=== PATIENT | male | born 1940 | race Caucasian/White ===

== ENCOUNTER → 2020-07-02 09:47 | Outpatient (CLI) | payer MEDICARE, SELFPAY ==
[2020-07-02 11:20] LABS: COVID19 -Nasal RAPID Negative (Negative)
== END ==
PROVIDERS: PCP Internal Medicine; Visit Provider Nurse Practitioner
DX: Z11.59 Encounter for screening for other viral diseases (principal)
CPT/HCPCS: 87635

== ENCOUNTER 2020-07-05 07:15 | Day surgery (SDC) | payer MEDICARE, SELFPAY ==
[2020-07-05] MEDS: CATARACT EYE COMPOUND (10 DROPS/SYRINGE) 3 DROPS EYE-OP (07:40)
[2020-07-05] MEDS: PROPARACAINE 0.5% OPHTH SOL 2 DROPS EYE-OP (07:40)
[2020-07-05 07:42] VITALS: BP 129/74; PULSE 66; RESP 16; TEMP 36.2; O2SAT 99; BMI 23.8
--- NOTE | 2020-07-05 09:00 | PM.PREOP ---
Pre-operative Note Interval Note History & Physical reviewed/Exam performed by Physician: Yes Changes to H&P: No
--- NOTE | 2020-07-05 09:00 | PM.OP.1 ---
Operative Date/Time/Diagnoses Pre-op diagnosis: Nuclear Cataract Left eye Post-op diagnosis: same Procedure & Clinicians Same procedure as scheduled: Yes Surgeon: Deon Fermin Anesthesia Type: MAC +/- and Sedation Operative Notes Procedure in detail: Patient brought to the operating suite. Tetracaine drops placed in the left eye. Marking instrument was used to americo the vertical and horizontal meridians. Patient was prepped and draped in sterile manner. Wire lid speculum was placed in the eye. Betadine drops were placed on the eye. This was irrigated. Lidocaine jelly was placed on the eye. A paracentesis port was created with a side-port blade. 0.1 mL 1% preservative free lidocaine was injected into the anterior chamber. The anterior chamber was deepened with viscoelastic. 2.6 mm keratome was used to create a temporal clear corneal incision. Cystotome and Utrata forceps were used to create continuous tear capsulorrhexis. Balanced salt solution was used to hydro dissect the nucleus. The phacoemulsification handpiece was inserted and the nucleus was removed using the stop and chop technique. The irrigation aspiration handpiece was inserted and the remaining cortex was removed. Anterior chamber was deepened with viscoelastic. An Fried [id number] intraocular lens with a power of 19.0 was injected into the capsular bag. Irrigation aspiration handpiece was inserted and the remaining viscoelastic was removed. The lens was rotated to the 180 degree meridian. Incision was hydrated with balanced salt solution and found to be leak free with pressure with Weck-Mirna sponges. 0.1 mL Vigamox injected anterior chamber. 0.3 mL Kenalog 10 mg was injected subconjunctivally. Lid speculum was removed. The patient left the operating room in excellent condition. Complications: none Post-operative Condition: stable Disposition: same day surgery
[2020-07-05] MEDS: LIDOCAINE JELLY 2% 5 ML 1 APPLIC TOP (09:20)
[2020-07-05] MEDS: PHENYLEPHRINE/LIDOCAINE VIAL (OR) 0.2 ML EYE-OP (09:20)
[2020-07-05] MEDS: MOXIFLOXACIN INJ 5 MG/ML VIAL EYE-OP (09:20)
[2020-07-05] MEDS: TRIAMCINOLONE 50 MG/5 ML VIAL INJ (09:20)
[2020-07-05] MEDS: CHONDROIDTIN/SOD HYALURONATE 1.05 ML SYRINGE INTRAOCULA (09:20)
[2020-07-05] MEDS: BALANCED SALT IRRIG SOLN NO.2 500 ML, EPINEPHrine 1 MG IRR (09:21)
[2020-07-05] MEDS: TETRACAINE 0.5% OPHTH DROPS 4 ML 2 DROPS EYE-OP (09:21)
[2020-07-05 09:40] VITALS: BP 108/64; PULSE 58; RESP 12; TEMP 36.6; O2SAT 98
== END 2020-07-05 09:34 | disposition home or self-care (01) ==
PROVIDERS: PCP Internal Medicine; Referring Provider Internal Medicine; Visit Provider Ophthalmology
PROC: (CPT 66984; principal; 2020-07-05 09:15)
DX: H25.12 Age-related nuclear cataract, left eye (principal); I10 Essential (primary) hypertension; K21.9 Gastro-esophageal reflux disease without esophagitis; R42 Dizziness and giddiness; E78.5 Hyperlipidemia, unspecified
CPT/HCPCS: 66984; J0171; J2250; J3010; J3301; V2787

== ENCOUNTER → 2020-07-18 11:43 | Outpatient (CLI) | payer MEDICARE, SELFPAY ==
[2020-07-18 13:40] LABS: COVID19 -Nasal RAPID Negative (Negative)
== END ==
PROVIDERS: PCP Internal Medicine; Visit Provider Physician Assistant
DX: Z01.812 Encounter for preprocedural laboratory examination (principal); Z20.828 Contact with and (suspected) exposure to other viral communicable diseases
CPT/HCPCS: 87635; C9803

== ENCOUNTER 2020-07-19 08:19 | Day surgery (SDC) | payer MEDICARE, SELFPAY ==
[2020-07-19] MEDS: PROPARACAINE 0.5% OPHTH SOL 2 DROPS EYE-OP (09:06)
[2020-07-19] MEDS: CATARACT EYE COMPOUND (10 DROPS/SYRINGE) 3 DROPS EYE-OP (09:13)
[2020-07-19 09:20] VITALS: BP 150/73; PULSE 64; RESP 16; TEMP 36.3; O2SAT 100; BMI 23.0
--- NOTE | 2020-07-19 09:59 | P.OP_ITS ---
Operative Date/Time/Diagnoses Pre-op diagnosis: Nuclear cataract right eye Procedure & Clinicians Procedure: Cataract Surgery Same procedure as scheduled: Yes Surgeon: Deon Fermin Anesthesia Type: MAC +/- and Sedation Operative Notes Procedure in detail: Patient brought to the operating suite. Tetracaine drops placed in the right eye. Vertical and horizontal meridians were marked with the marking instrument. Patient was prepped and draped in sterile manner. Wire lid speculum was placed in the eye. 15 degree meridian was marked. Betadine drops were placed on the eye. This was irrigated. Lidocaine jelly was placed on the eye. A paracentesis port was created with a side-port blade. 0.1 mL 1% preservative free lidocaine was injected into the anterior chamber. The anterior chamber was deepened with viscoelastic. 2.6 mm keratome was used to create a temporal clear corneal incision. Cystotome and Utrata forceps were used to c reate continuous tear capsulorrhexis. Balanced salt solution was used to hydro dissect the nucleus. The phacoemulsification handpiece was inserted and the nucleus was removed using the stop and chop technique. The irrigation aspiration handpiece was inserted and the remaining cortex was removed. Anterior chamber was deepened with viscoelastic. An Fried [id number] intraocular lens with a power of 18.5 was injected into the capsular bag. Irrigation aspiration handpiece was inserted and the remaining viscoelastic was removed. The lens was rotated to the 15 degree meridian. Incision was hydrated with balanced salt solution and found to be leak free with pressure with Weck-Mirna sponges. 0.1 mL Vigamox injected anterior chamber. 0.3 mL Kenalog 10 mg was injected subconjunctivally. Lid speculum was removed. The patient left the operating room in excellent condition. Complications: none Post-operative Condition: stable Disposition: same day surgery
--- NOTE | 2020-07-19 09:59 | PM.PREOP ---
Pre-operative Note Interval Note History & Physical reviewed/Exam performed by Physician: Yes Changes to H&P: No
[2020-07-19] MEDS: TRIAMCINOLONE 50 MG/5 ML VIAL INJ (10:21)
[2020-07-19] MEDS: MOXIFLOXACIN INJ 5 MG/ML VIAL EYE-OP (10:21)
[2020-07-19] MEDS: TETRACAINE 0.5% OPHTH DROPS 4 ML 2 DROPS EYE-OP (10:21)
[2020-07-19] MEDS: LIDOCAINE JELLY 2% 5 ML 1 APPLIC TOP (10:21)
[2020-07-19] MEDS: PHENYLEPHRINE/LIDOCAINE VIAL (OR) 0.2 ML EYE-OP (10:21)
[2020-07-19] MEDS: CHONDROIDTIN/SOD HYALURONATE 1.05 ML SYRINGE INTRAOCULA (10:21)
[2020-07-19] MEDS: BALANCED SALT IRRIG SOLN NO.2 500 ML, EPINEPHrine 1 MG IRR (10:22)
[2020-07-19 10:38] VITALS: BP 117/62; PULSE 56; RESP 16; TEMP 36.6; O2SAT 97
== END 2020-07-19 11:01 | disposition home or self-care (01) ==
PROVIDERS: PCP Internal Medicine; Referring Provider Internal Medicine; Visit Provider Ophthalmology
PROC: (CPT 66984; principal; 2020-07-19 10:15)
DX: H25.11 Age-related nuclear cataract, right eye (principal); E78.00 Pure hypercholesterolemia, unspecified; I10 Essential (primary) hypertension; K21.9 Gastro-esophageal reflux disease without esophagitis; R42 Dizziness and giddiness
CPT/HCPCS: 66984; J0171; J2250; J3010; J3301; V2787

== ENCOUNTER → 2022-05-14 13:43 | Outpatient (CLI) | payer MEDICARE, SELFPAY ==
--- NOTE | 2022-05-14 | DI.CT.S_ITS ---
PROCEDURE: CT SINUS SCREEN WO CON INDICATIONS: Chronic pansinusitis TECHNIQUE: Noncontrast 3.0 mm axial images acquired from the frontal sinuses to the mid-sella, with coronal and sagittal reformats. For radiation dose reduction, the following was used: automated exposure control, adjustment of mA and/or kV according to patient size. COMPARISON: [facility], CT, SINUS SCREEN WO CONTRAST, 07/02/2012, 8:16. FINDINGS: Image quality: Excellent. Maxillary Sinuses: No bony remodeling or destruction. Sinuses are clear. Ethmoid Air Cells: No bony remodeling or destruction. Minimal to mild mucosal thickening is seen within the ethmoid air cells. Sphenoid Sinuses: No bony remodeling or destruction. Sinuses are clear. Frontal Sinuses: No bony remodeling or destruction. Mild mucosal thickening is seen within the inferior medial left frontal sinus. Ostiomeatal Complexes: Ostiomeatal complexes are patent, yet they are constitutionally narrowed. No definite Joey cells. Miscellaneous: Visualized intra-orbital contents are normal. No brian bullosa or paradoxical turbinate curvature. There is wnxa-qf-nkyiggny leftward nasal septal deviation, with a leftward directed bony nasal septal spur. IMPRESSION: Mild paranasal sinus disease is seen, which is most prominent within the inferomedial left frontal sinus. The burden of paranasal sinus disease is improved compared to 2011. Mshn-pc-[id number] leftward nasal septal deviation, with a leftward directed bony nasal septal spur. Dictated by: Taurus Herrera M.D. on 05/14/2022 at 14:16 Approved by: Taurus Herrera M.D. on 05/14/2022 at 14:17
== END ==
PROVIDERS: PCP Internal Medicine; Referring Provider Otolaryngology; Visit Provider Otolaryngology
DX: J32.4 Chronic pansinusitis (principal); R51.9 Headache, unspecified; J34.89 Other specified disorders of nose and nasal sinuses; J34.2 Deviated nasal septum
CPT/HCPCS: 70486

== ENCOUNTER → 2023-02-27 13:14 | Outpatient (CLI) | payer MEDICARE, SELFPAY ==
--- NOTE | 2023-02-27 13:16 | DI.US.S_ITS ---
PROCEDURE: US PERIPH VENOUS LOW EXTREM LT INDICATIONS: SWELLING TECHNIQUE: Real-time imaging, as well as color and pulse Doppler interrogation, were performed of the lower extremity deep veins from the inguinal ligament to the popliteal fossa. COMPARISON: None. FINDINGS: The common femoral, femoral and popliteal veins are normally compressible, and free of intraluminal thrombus. Color and pulse Doppler demonstrate normal phasic intraluminal flow. There is normal augmentation response to distal compression maneuver. 2 fluid collections are seen which are mildly complex. One is seen posteriorly and medially measuring up to 4.1 cm. A 2nd is seen anterior and superior to the knee, measuring up to 3.6 cm. Distal lower extremity edema can be seen. IMPRESSION: Negative for deep venous thrombosis. 2 mildly complex discrete fluid collections can be seen within the region of the knee. Dictated by: Taurus Herrera M.D. on 02/27/2023 at 13:36 Approved by: Taurus Herrera M.D. on 02/27/2023 at 13:37
== END ==
PROVIDERS: PCP Internal Medicine; Referring Provider Nurse Practitioner Family; Visit Provider Nurse Practitioner Family
DX: M79.89 Other specified soft tissue disorders (principal)
CPT/HCPCS: 93971

== ENCOUNTER → 2023-06-17 08:10 | Outpatient (CLI) | payer MEDICARE, SELFPAY ==
--- NOTE | 2023-06-17 08:11 | DI.ECHO.S_ITS ---
[place] [facility]---------+ [facility] +---------+ : : [address] [place] [address] : : : : [id number] : : : : Phone: [phone]+ Echocardiogram Report + + :Name: RADHA KRUEGER Study Date: 06/17/2023 Height: 72 in : :[facility] ReadingLocation: Weight: 170 lb : : Gender: Male BSA: 2.0 m2 : :: 1940 Age: 82 yrs BP: 153/80 mmHg: :Reason For Study: Peripheral Edema : :Ordering Physician: JACK, : :JOSE CRUZ Condon Performed By: Valencia Simon : :Referring: JOSE CRUZ SANTIAGO : + + Interpretation Summary The left ventricle is normal in size. The ejection fraction is estimated to be 60-65%. Diastolic parameters suggest a relaxation abnormality of the left ventricle, consistent with probable normal filling pressures. There is mild mitral regurgitation. There is mild aortic valve sclerosis. Procedure: A two-dimensional transthoracic echocardiogram with color flow and Doppler was performed. The study quality was technically adequate. There is no prior echocardiogram noted for this patient. The patient was in normal sinus rhythm during the exam. Left Ventricle: The left ventricle is normal in size. There is normal left ventricular wall thickness. The ejection fraction is estimated to be 60-65%. There are no focal wall motion abnormalities. Diastolic parameters suggest a relaxation abnormality of the left ventricle, consistent with probable normal filling pressures. Right Ventricle: The right ventricle is normal in size and function. Atria: The left atrial size is normal. Right atrial size is normal. There is no Doppler evidence for an interatrial shunt. Mitral Valve: The mitral valve is normal. There is no mitral valve stenosis. There is mild mitral regurgitation. Aortic Valve: The aortic valve is trileaflet. The aortic valve opens well. There is mild aortic valve sclerosis. There is no aortic valve stenosis. There is trace aortic regurgitation. Tricuspid Valve: The tricuspid valve is normal. There is no tricuspid stenosis. There is trace tricuspid regurgitation. The right ventricular systolic pressure is estimated to be at least 22 mmHg based on an estimated right atrial pressure of 8 mm Hg. Pulmonic Valve: The pulmonic valve is not well visualized. There is no pulmonic valvular stenosis. There is trace pulmonic regurgitation. Great Vessels: The aortic root is normal size. The ascending aorta is normal in size. The pulmonary artery is normal size. The IVC is dilated (diameter is greater than 2.1 cm) yet it collapses greater than 50% with a sniff. This suggests a right atrial pressure of 8 mm Hg. Pericardium/ Pleura There is a trivial to small pericardial effusion noted. There is no pleural effusion. MMode/2D Measurements & Calculations LVIDd: 4.5 cm LVOT diam: 2.1 cm LVIDs: 2.0 cm Ao root diam: 2.9 cm FS: 55.6 % asc Aorta Diam: 3.1 cm IVSd: 1.0 cm LVPWd: 1.1 cm LV doll. diameter/BSA (cm/m^2): 2.3 LV sys. diameter/BSA (cm/m^2): 1.0 LA A2 area: 19.2 cm2 RA long axis: 5.0 cm LA A4 area: 15.0 cm2 RA area: 15.0 cm2 LA length (vol): 5.6 cm RA vol: 38.3 ml LA vol: 44.0 ml RA : 19.3 ml/m2 LA vol index: 22.1 ml/m2 IVC diam: 2.6 cm RVD1 (basal): 3.7 cm LVLs ap4: 6.1 cm LVLd ap2: 7.4 cm TAPSE_phl: 2.4 cm LVLs ap2: 6.3 cm Doppler Measurements & Calculations Ao V2 max: 119.5 cm/sec LVOT Max Zack: 113.5 cm/sec Ao V2 mean: 82.1 cm/sec LV V1 max P.2 mmHg Ao max P.0 mmHg LV V1 VTI: 25.7 cm Ao mean P.0 mmHg JUAN MIGUEL(I,D): 3.1 cm2 Ao V2 VTI: 28.4 cm JUAN MIGUEL(V,D): 3.3 cm2 sev ratio: 0.90 JUAN MIGUEL indexed to BSA (cm^2/m^2): 1.6 MV E max zack: 90.0 cm/sec TR max zack: 187.6 cm/sec MV A max zack: 117.0 cm/sec TR max P.2 mmHg MV E/A: 0.77 PA V2 max: 108.0 cm/sec Med Peak E' Zack: 6.6 cm/sec PA V2 mean: 73.4 cm/sec E/E' med: 13.6 PA mean P.0 mmHg Lat Peak E' Zack: 6.9 cm/sec PA pr(Accel): 17.3 mmHg E/E' lat: 13.1 E/e' average: 13.4 MV dec time: 0.20 sec SV(LVOT): 89.0 ml AV VR_phl: 0.95 JUAN MIGUEL(VTI)/BSA_phl: 1.6 Electronically signed by: Ej Young on Reading Physician:06/17/2023 11:25 AM
== END ==
PROVIDERS: PCP Internal Medicine; Referring Provider Internal Medicine; Visit Provider Internal Medicine
DX: I08.0 Rheumatic disorders of both mitral and aortic valves (principal); I31.39 Other pericardial effusion (noninflammatory); R60.9 Edema, unspecified; I10 Essential (primary) hypertension
CPT/HCPCS: 93306

== ENCOUNTER → 2024-04-16 15:15 | Outpatient (CLI) | payer MEDICARE, SELFPAY ==
[2024-04-16 16:13] LABS: Add Manual Diff / Slide Review NO; Basophils Absolute Auto 0 /uL (0-100); Basophils Percent Auto 0.8 % (0-2); Eosinophils Absolute Auto 0 /uL (0-450); Eosinophils Percent Auto 0.8 % (2-4); Hematocrit 36.7 % (41-53); Hemoglobin 12.3 g/dL (13.5-17.5); Lymphocytes Absolute Auto 1700 /uL (1100-4500); Lymphocytes Percent Auto 30.9 % (25-40); Mean Corpuscular HGB Conc 33.6 % (30-36); Mean Corpuscular Hemoglobin 32.1 PG (26-34); Mean Corpuscular Volume 95.4 fL (80-100); Monocytes Absolute Auto 1900 /uL (0-900); Neutrophils Absolute Auto 1800 /uL (1500-7000); Neutrophils Percent Auto 33.5 % (50-75); Platelet Count 98 X10^3/uL (150-400); Red Blood Cell Count 3.84 X10^6/uL (4.5-5.9); Red Cell Distribution Width 13.9 % (11.6-14.8); White Blood Cell Count 5.5 X10^3/uL (4.5-11.0)
[2024-04-16 17:23] LABS: Alanine Aminotransferase 15 IU/L (<50); Albumin 4.1 g/dL (3.5-5.0); Albumin Globulin Ratio 1.2 (1.0-2.8); Alkaline Phosphatase 94 U/L (38-126); Aspartate Aminotransferase 26 IU/L (17-59); BUN Creatinine Ratio 18.5 (6-22); Bilirubin Total 0.6 mg/dL (0.2-1.3); Blood Urea Nitrogen 22 mg/dL (9-20); Calcium 8.8 mg/dL (8.4-10.2); Carbon Dioxide 27 mmol/L (22-32); Chloride 107 mmol/L (98-107); Estimated Glomerular Filt Rate > 60 mL/min (>60); Globulin 3.3 g/dL (1.7-4.1); Glucose 112 mg/dL (80-110); HEMOLYSIS < 15 (0-50); Sodium 141 mmol/L (137-145); Total Protein 7.4 g/dL (6.3-8.2)
[2024-04-16 17:53] LABS: Prostate Specific Antigen Scrn 3.76 ng/mL (0.1-4.0)
[2024-04-16 18:28] LABS: TSH w/ Reflex to FT4 1.23 uIU/mL (0.47-4.68)
[2024-04-16 18:47] LABS: Vitamin B12 442 pg/mL (239-931)
== END ==
LOC: LAB 15:16
PROVIDERS: PCP Internal Medicine; Referring Provider Physician Assistant; Visit Provider Physician Assistant
DX: R42 Dizziness and giddiness (principal); Z12.5 Encounter for screening for malignant neoplasm of prostate
CPT/HCPCS: 36415; 80053; 82607; 84443; 85025; G0103

== ENCOUNTER → 2024-05-13 12:49 | Outpatient (CLI) | payer MEDICARE, SELFPAY ==
--- NOTE | 2024-05-13 12:50 | DI.ECHO.S_ITS ---
[facility]+ [facility] : : [address] : : [place] : : [id number] : : Phone: [phone] Echocardiogram Report + + :Name: RADHA KRUEGER Study Date: 05/13/2024 Height: 72 in : :[facility] ReadingLocation: Weight: 170 lb : : Gender: Male BSA: 2.0 m2 : :: 1940 Age: 83 yrs BP: 132/74 mmHg: :Reason For Study: ABNORMAL EKG : :Ordering Physician: JACK, : :JOSE CRUZ Condon Performed By: Hannah Mosher : :Referring: JOSE CRUZ SANTIAGO : + + Interpretation Summary The ejection fraction is estimated to be 55-60%. There is mild to moderate mitral regurgitation. There is mild tricuspid regurgitation. Procedure: A two-dimensional transthoracic echocardiogram with color flow and Doppler was performed. The study quality was technically adequate. Comparison is made with the echocardiogram of 06/17/2023. The patient was in sinus bradycardia with heart rates between 51-63 bpm during the exam. Left Ventricle: The left ventricle is normal in size and wall thickness. The ejection fraction is estimated to be 55-60%. Left ventricular wall motion is normal. Right Ventricle: The right ventricle is mildly dilated. The right ventricular systolic function is normal. Atria: The left atrial size is normal. Right atrial size is normal. There is no Doppler evidence for an interatrial shunt. Mitral Valve: The mitral valve is normal in structure and function. There is mild to moderate mitral regurgitation. Aortic Valve: The aortic valve is trileaflet. The aortic valve opens well. There is no aortic valve stenosis. There is trace aortic regurgitation. Tricuspid Valve: The tricuspid valve is normal in structure and function. There is mild tricuspid regurgitation. Pulmonic Valve: The pulmonic valve is not well seen, but is grossly normal. There is trace pulmonic regurgitation. Great Vessels: The aortic root is normal size. The dimensions of the ascending aorta are normal. The IVC is of normal diameter and collapses greater than 50% with a sniff. This suggests a low right atrial pressure of 3 mm Hg. Pericardium/ Pleura There is no pericardial effusion. There is no pleural effusion. MMode/2D Measurements & Calculations LVIDd: 5.1 cm LVOT diam: 2.1 cm LVIDs: 3.7 cm Ao root diam: 3.2 cm FS: 27.1 % asc Aorta Diam: 3.4 cm IVSd: 0.71 cm Ao Arch Diam (Prox Trans): 2.8 cm LVPWd: 0.82 cm LV doll. diameter/BSA (cm/m^2): 2.6 LV sys. diameter/BSA (cm/m^2): 1.9 LA A2 area: 19.6 cm2 RA long axis: 5.1 cm LA A4 area: 18.3 cm2 RA area: 16.5 cm2 LA length (vol): 5.3 cm RA vol: 45.1 ml LA vol: 58.1 ml RA : 22.7 ml/m2 LA vol index: 29.2 ml/m2 IVC diam: 1.8 cm RVD1 (basal): 4.5 cm RVD2 (mid): 3.0 cm TAPSE: 1.7 cm Doppler Measurements & Calculations Ao V2 max: 115.8 cm/sec LVOT Max Zack: 103.2 cm/sec Ao V2 mean: 89.4 cm/sec LV V1 max P.3 mmHg Ao max P.4 mmHg LV V1 VTI: 23.8 cm Ao mean P.4 mmHg JUAN MIGUEL(I,D): 2.5 cm2 Ao V2 VTI: 32.3 cm JUAN MIGUEL(V,D): 3.1 cm2 sev ratio: 0.74 JUAN MIGUEL indexed to BSA (cm^2/m^2): 1.3 MV E max zack: 100.0 cm/sec PA V2 max: 77.3 cm/sec MV A max zack: 88.5 cm/sec PA V2 mean: 55.4 cm/sec MV E/A: 1.1 PA mean P.3 mmHg Med Peak E' Zack: 5.0 cm/sec PA pr(Accel): 25.9 mmHg E/E' med: 20.0 Lat Peak E' Zack: 5.7 cm/sec E/E' lat: 17.6 E/e' average: 18.8 MV dec time: 0.22 sec SV(LVOT): 82.2 ml Reading Physician:02:11 PM
== END ==
PROVIDERS: PCP Internal Medicine; Referring Provider Internal Medicine; Visit Provider Internal Medicine
DX: R94.31 Abnormal electrocardiogram [ECG] [EKG] (principal); I08.1 Rheumatic disorders of both mitral and tricuspid valves
CPT/HCPCS: 93306

== ENCOUNTER → 2024-08-04 08:50 | Outpatient (CLI) | payer MEDICARE, SELFPAY ==
[2024-08-04 09:38] LABS: Hematocrit 35.4 % (41-53); Hemoglobin 11.9 g/dL (13.5-17.5); Mean Corpuscular HGB Conc 33.5 % (30-36); Mean Corpuscular Hemoglobin 31.4 PG (26-34); Mean Corpuscular Volume 93.5 fL (80-100); Platelet Count 113 X10^3/uL (150-400); Red Blood Cell Count 3.79 X10^6/uL (4.5-5.9); Red Cell Distribution Width 14.1 % (11.6-14.8); White Blood Cell Count 4.4 X10^3/uL (4.5-11.0)
[2024-08-04 09:39] LABS: Add Manual Diff / Slide Review YES
[2024-08-04 09:53] LABS: Neutrophils Absolute Manual 1716 /uL (3000-5900); RBC Morphology Normal Morphology; Total Cells Counted 100
[2024-08-04 10:03] LABS: Alanine Aminotransferase 22 IU/L (<50); Albumin Globulin Ratio 1.4 (1.0-2.8); Alkaline Phosphatase 76 U/L (38-126); Aspartate Aminotransferase 31 IU/L (17-59); BUN Creatinine Ratio 14.4 (6-22); Bilirubin Total 0.6 mg/dL (0.2-1.3); Blood Urea Nitrogen 17 mg/dL (9-20); C-Reactive Protein Quant < 0.5 mg/dL (<1.0); Calcium 9.1 mg/dL (8.4-10.2); Carbon Dioxide 27 mmol/L (22-32); Chloride 107 mmol/L (98-107); Estimated Glomerular Filt Rate > 60 mL/min (>60); Globulin 2.9 g/dL (1.7-4.1); Glucose 90 mg/dL (80-110); HEMOLYSIS < 15 (0-50); Potassium 4.1 mmol/L (3.4-5.1); Sodium 141 mmol/L (137-145); Total Protein 6.9 g/dL (6.3-8.2)
[2024-08-06 13:10] LABS: Albumin 3.5 g/dL (2.9-4.4); Alpha-1-Globulin 0.3 g/dL (0.0-0.4); Alpha-2-Globulin 0.7 g/dL (0.4-1.0); Gamma Globulin 1.1 g/dL (0.4-1.8); Globulin Total 3.2 g/dL (2.2-3.9); Immunoglobulin A, Serum 578 mg/dL (61-437); Immunoglobulin G,Serum 883 mg/dL (603-1613); Immunoglobulin M, Serum 97 mg/dL (15-143); Protein, Total 6.7 g/dL (6.0-8.5)
== END ==
PROVIDERS: PCP Internal Medicine; Referring Provider Internal Medicine; Visit Provider Internal Medicine
DX: D47.2 Monoclonal gammopathy (principal); I10 Essential (primary) hypertension
CPT/HCPCS: 36415; 80053; 82784; 84155; 84165; 85007; 85025; 86140; 86334

== ENCOUNTER → 2024-12-31 14:30 | Outpatient (CLI) | payer MEDICARE, SELFPAY ==
--- NOTE | 2024-12-31 14:32 | DI.RAD.S_ITS ---
PROCEDURE: XR CHEST 2V INDICATIONS: pulm nodule TECHNIQUE: 2 views of the chest were acquired. COMPARISON: None. FINDINGS: Surgical changes and devices: None. Lungs and pleura: Lungs are clear. No pleural effusions or pneumothorax. Mediastinum: Mediastinal contours are normal. Heart size is enlarged. Bones and chest wall: No suspicious bony abnormalities. Soft tissues appear unremarkable. IMPRESSION: No acute pulmonary process. No priors are available for comparison. If priors demonstrating pulmonary nodule exist and they can be reviewed, an addendum will be issued. Dictated by: Blanche Ruiz M.D. on 12/31/2024 at 16:30 Approved by: Blanche Ruiz M.D. on 12/31/2024 at 16:31
[2024-12-31 15:20] LABS: Hematocrit 24.3 % (41-53); Hemoglobin 8.3 g/dL (13.5-17.5)
[2024-12-31 15:42] LABS: HEMOLYSIS < 15 (0-50); Iron 249 ug/dL (49-181)
[2024-12-31 15:49] LABS: Erythrocyte Sedimentation Rate 65 MM/HR (0-15)
[2024-12-31 15:51] LABS: Reticulocyte Count, Percent 1.9 % (0.9-2.6)
[2024-12-31 15:55] LABS: Percent Iron Saturation 63 % (20-50); Total Iron Binding Capacity 395 ug/dL (261-462); Transferrin 312 mg/dL (206-381)
[2024-12-31 16:51] LABS: Folate > 20.0 ng/mL (2.76-20.0); Vitamin B12 781 pg/mL (239-931)
[2025-01-02 04:36] LABS: Haptoglobin 216 mg/dL (38-329)
[2025-01-04 13:09] LABS: Erythropoietin 124.2 mIU/mL (2.6-18.5)
[2025-01-09 17:08] LABS: Percent Free Testosterone 1.97 % (1.50-4.20); Testosterone Free 3.26 ng/dL (5.00-21.00); Testosterone Total 165.5 ng/dL (264.0-916.0)
== END ==
PROVIDERS: PCP Internal Medicine; Referring Provider Internal Medicine; Visit Provider Internal Medicine
DX: D47.2 Monoclonal gammopathy (principal); R91.1 Solitary pulmonary nodule; D64.9 Anemia, unspecified; E29.1 Testicular hypofunction
CPT/HCPCS: 36415; 71046; 82607; 82668; 82746; 83010; 83540; 83550; 84402; 84403; 85014; 85018; 85045; 85651; 86850; 86900; 86901

== ENCOUNTER 2025-01-29 09:16 | Emergency (ER) | payer MEDICARE, SELFPAY ==
[2025-01-29] VITALS (19 sets, daily range): BP systolic 132–185; BP diastolic 61–83; PULSE 63–89; RESP 10–21; TEMP 36.6–36.8; O2SAT 98–100; BMI 23.7
[2025-01-29 09:42] LABS: Hematocrit 21.3 % (41-53); Hemoglobin 7.1 g/dL (13.5-17.5); Mean Corpuscular HGB Conc 33.3 % (30-36); Mean Corpuscular Hemoglobin 30.9 PG (26-34); Platelet Count 146 X10^3/uL (150-400); Red Blood Cell Count 2.29 X10^6/uL (4.5-5.9); White Blood Cell Count 7.6 X10^3/uL (4.5-11.0)
[2025-01-29 09:43] LABS: Add Manual Diff / Slide Review YES
[2025-01-29 09:53] LABS: Alanine Aminotransferase 17 IU/L (<50); Albumin 4.2 g/dL (3.5-5.0); Albumin Globulin Ratio 1.4 (1.0-2.8); Alkaline Phosphatase 82 U/L (38-126); Aspartate Aminotransferase 30 IU/L (17-59); BUN Creatinine Ratio 19.4 (6-22); Bilirubin Total 0.6 mg/dL (0.2-1.3); Blood Urea Nitrogen 26 mg/dL (9-20); Calcium 8.7 mg/dL (8.4-10.2); Carbon Dioxide 22 mmol/L (22-32); Chloride 108 mmol/L (98-107); Estimated Glomerular Filt Rate 52 mL/min (>60); Glucose 100 mg/dL (70-99); HEMOLYSIS < 15 (0-50); Potassium 4.2 mmol/L (3.4-5.1); Sodium 140 mmol/L (137-145); Total Protein 7.2 g/dL (6.3-8.2)
[2025-01-29 09:54] LABS: Anisocytosis 2+; Neutrophils Absolute Manual 3800 /uL (3000-5900); Total Cells Counted 100
--- NOTE | 2025-01-29 11:08 | PC.NURSE ---
Denies N/V. Denies falls. No history of needing blood transfusion. Pt reports he did not notice being pale but states other people commented on his complexion.
--- NOTE | 2025-01-29 14:15 | ED.RECABL ---
HPI - Recheck/Abnormal Lab/Rx General Chief Complaint: Recheck/Abnormal Lab/Rx Stated Complaint: Needs a blood Transfusion per His Doctor Time Seen by Provider: 01/29/25 09:20 Source: patient and family Mode of arrival: Ambulatory History of Present Illness HPI narrative: 84-year-old gentleman currently being worked up for multiple myeloma with concerns for anemia and significant drop in red blood cell count now with mild exertional dyspnea. Records from his oncologist indicate that on December 25 he had a hemoglobin of 7.2 on the it was 8.7 today was 6.3. He had an iron transfusion on the . His next follow up with his oncologist is on February 03, a tele video appointment. His oncologist has been encouraging him to come to [place] to schedule upper and lower endoscopies but travel that far is challenging for the patient and his . I received phone call from his oncologist this morning letting him know that his hemoglobin was 6.3 and recommended that he come to the emergency department for a packed red blood cell transfusion. Related Data Home Medications ?Medication ?Instructions ?Recorded ?Confirmed fluticasone propionate 50 1 spray intranasal DAILY 06/04/19 12/31/24 mcg/actuation nasal spray,suspension multivitamin (Multiple Vitamins 1 tab PO QDAY ##0 06/10/23 12/31/24 tablet) alpha lipoic acid 1 cap PO DAILY 05/05/24 12/31/24 Previous Rx's ?Medication ?Instructions ?Recorded Disabled Parking #1 ea 05/05/24 alfuzosin 10 mg tablet,extended 10 mg PO DAILY #90 tabs 05/05/24 release 24 hr physical therapy #1 ea 05/05/24 rosuvastatin 5 mg tablet 5 mg PO DAILY #90 tabs 05/05/24 propranolol 20 mg tablet 10 mg (1/2 x 20 mg) PO BID #90 tabs 06/25/24 Allergies Allergy/AdvReac Type Severity Reaction Status Date / Time atorvastatin AdvReac Intermediate muscle Verified 12/31/24 13:59 aches Review of Systems Review of Systems Narrative: Pertinent positive and negative findings as per HPI Patient History Medical History (Updated 01/29/25 @ 14:21 by Katy Gonzalez MD) Right bundle branch block Peripheral neuropathy Monoclonal gammopathy Atherosclerosis of aorta Paraganglioma Lower urinary tract symptoms (LUTS) Seasonal allergies Mumps Measles Chicken pox Benign prostatic hyperplasia Esophageal reflux (07/07/03) Hypogonadism in male (05/31/17) Lung nodule (06/12/16) Mixed hyperlipidemia (06/03/15) Hypertension (02/23/11) Surgical History History of lung surgery (~2011) Social History marital status: number of children: 1 household members: spouse lives independently: Yes caregiver/support person: No housing: house pets and animals: No education level: college occupational status: other Previous occupational history: [employer] travel history: recurrent leisure activities: other Smoking Status: Former smoker Tobacco: How many years used: 30 Smokeless tobacco user: other quit status: quit date established second hand exposure: No alcohol intake: current substance use type: does not use Smoking Status: Former smoker alcohol intake frequency: 0-2 drinks per day Alcohol type: hard liquor Exam Initial Vital Signs Initial Vital Signs: Vital Signs Pulse Rate 89 01/29/25 09:26 Pulse Oximetry 99 01/29/25 09:26 General: Alert appropriate in no acute distress Cardiac: 3/6 systolic murmur, no tachycardia appreciated Respiratory: Able to speak in full sentences, no obvious respiratory distress Skin: Quite pale, thin, no obvious rashes Neurologic: Grossly intact no obvious asymmetries or abnormalities Psych: appropriate insight and affect, cooperative Course Orders Ordered: ED Orders 01/29/25 09:30 Complete Blood Count AUTO DIFF Stat Comprehensive Metabolic Panel Stat Type and Screen Stat transfuse [Packed Cells] Stat Vital Signs Vital signs: Vital Signs - 8 hr 01/29/25 09:26 01/29/25 09:27 01/29/25 09:27 Temperature Pulse Rate 89 80 Respiratory Rate Blood Pressure 169/74 H Pulse Oximetry 99 98 Oxygen Delivery Method 01/29/25 09:30 01/29/25 09:30 01/29/25 09:33 Temperature 98.2 F Pulse Rate 72 74 Respiratory Rate 21 16 Blood Pressure 168/77 H 169/74 H Pulse Oximetry 100 100 Oxygen Delivery Method Room Air 01/29/25 10:00 01/29/25 10:00 01/29/25 10:30 Temperature Pulse Rate 69 70 Respiratory Rate 21 14 Blood Pressure 154/74 H Pulse Oximetry 100 100 Oxygen Delivery Method 01/29/25 10:31 01/29/25 10:31 01/29/25 10:56 Temperature 98.3 F Pulse Rate 68 68 Respiratory Rate 12 17 Blood Pressure 133/62 133/62 Pulse Oximetry 100 Oxygen Delivery Method 01/29/25 11:00 01/29/25 11:00 01/29/25 11:11 Temperature 98 F Pulse Rate 71 71 Respiratory Rate 21 16 Blood Pressure 154/76 H 154/76 H Pulse Oximetry 100 Oxygen Delivery Method 01/29/25 11:13 01/29/25 11:13 01/29/25 11:30 Temperature Pulse Rate 71 Respiratory Rate 15 Blood Pressure 140/71 140/70 Pulse Oximetry 100 Oxygen Delivery Method 01/29/25 11:30 01/29/25 12:00 01/29/25 12:00 Temperature Pulse Rate 66 67 Respiratory Rate 13 11 L Blood Pressure 147/67 H Pulse Oximetry 100 100 Oxygen Delivery Method 01/29/25 13:29 Temperature 98.2 F Pulse Rate 73 Respiratory Rate 18 Blood Pressure 185/83 H Pulse Oximetry Oxygen Delivery Method MDM - Recheck/Abnormal Lab/Rx Lab Data 01/29/25 09:30 01/29/25 09:30 Labs: Lab Results 01/29/25 Range/Units 09:30 WBC 7.6 (4.5-11.0) X10^3/uL RBC 2.29 L (4.5-5.9) X10^6/uL Hgb 7.1 L (13.5-17.5) g/dL Hct 21.3 L (41-53) % MCV 93.0 (80-100) fL MCH 30.9 (26-34) PG MCHC 33.3 (30-36) % RDW 17.0 H (11.6-14.8) % Plt Count 146 L (150-400) X10^3/uL Neut % (Auto) Not Reportable Lymph % (Auto) Not Reportable [place] % (Auto) Not Reportable Eos % (Auto) Not Reportable Baso % (Auto) Not Reportable Lymph # (Auto) Not Reportable [place] # (Auto) Not Reportable Baso # (Auto) Not Reportable Total Counted 100 Seg Neutrophils % 50.0 (38-70) % Lymphocytes % (Manual) 11.0 L (25-45) % Atypical Lymphs % 1.0 H ( - 0) % Monocytes % (Manual) 36.0 H (2-11) % Eosinophils % (Manual) 1.0 L (2-4) % Basophils % (Manual) 1.0 (0-1) % Neutrophils # (Manual) 3800 (4938-5770) /uL RBC Morphology Not Reportable Anisocytosis 2+ H Sodium 140 (137-145) mmol/L Potassium 4.2 (3.4-5.1) mmol/L Chloride 108 H (98-107) mmol/L Carbon Dioxide 22 (22-32) mmol/L BUN 26 H (9-20) mg/dL Creatinine 1.34 H (0.66-1.25) mg/dL Estimated GFR 52 L (>60) mL/min BUN/Creatinine Ratio 19.4 (6-22) Glucose 100 H (70-99) mg/dL Calcium 8.7 (8.4-10.2) mg/dL Total Bilirubin 0.6 (0.2-1.3) mg/dL AST 30 (17-59) IU/L ALT 17 (<50) IU/L Alkaline Phosphatase 82 (38-126) U/L Total Protein 7.2 (6.3-8.2) g/dL Albumin 4.2 (3.5-5.0) g/dL Globulin 3.0 (1.7-4.1) g/dL Albumin/Globulin Ratio 1.4 (1.0-2.8) Blood Type B Positive Antibody Screen Negative Crossmatch See Detail MDM Narrative Medical decision making narrative: 84-year-old gentleman had blood work done this morning and an outside lab with a hemoglobin of 6.3. This is part of continued workup for multiple myeloma by his oncologist. His oncologist contacted him by phone and requested that he go to the emergency department for blood transfusion. Patient feels that he is at his baseline, bit fatigued a bit short of breath but no other significant complaints. CBC today shows a white count of 7.6. Hemoglobin of 7.1 hematocrit of 21.3 Chemistries show slight bump in creatinine at 1.34 remainder of chemistries are reassuring Based on hemoglobin from earlier this morning at 6.3, 1 unit of packed red cells were transfused. He does appear slightly volume down so no diuretics were given after infusion. Patient tolerated infusion well, is feeling better has follow up appointment on Saturday with his oncologist. There was no indication for immediate workup or other imaging today and he is discharged Discharge Plan Departure Patient Disposition: Home Clinical Impression: Acute anemia Activity Restrictions/Additional Instructions: Thank you for coming in today Based on the blood work that was done this morning showing a hemoglobin of 6.3 you were transfused 1 unit of packed red blood cells. The blood work that we did in the emergency department showed that your hemoglobin was at 7.1 but it also suggested that you were slightly Dehydrated. Does important that you follow up with your oncologist with your tele video appointment on Saturday. If you find that you are getting worse or develop any new symptoms, please feel free to return to the emergency department for further evaluation. Prescriptions: No Action multivitamin [Multiple Vitamins] Tablet 1 tab PO QDAY Qty: 0 propranolol 20 mg tablet 10 mg PO BID Qty: 90 3RF fluticasone propionate 50 mcg/actuation spray,suspension 1 spray NASAL DAILY alpha lipoic acid 1 cap PO DAILY alfuzosin 10 mg tablet extended release 24 hr 10 mg PO DAILY Qty: 90 3RF rosuvastatin 5 mg tablet 5 mg PO DAILY Qty: 90 3RF (DME) Disabled Parking See Rx Instructions .ROUTE .MEDSUPPLY Qty: 1 0RF Rx Instructions: Patient qualifies for disabled parking as per the attached form. (DME) physical therapy See Rx Instructions .Route .MEDSUPPLY Qty: 1 0RF Rx Instructions: Physical Therpay as indicated to treat gait disorder and peripheral neuropathy 12 visits over 3 months Referrals: José Miguel Davison MD [Primary Care Provider, Internal Medicine] Stand Alone Forms: Patient Portal/API
== END 2025-01-29 14:53 | disposition home or self-care (01) ==
PROVIDERS: Emergency Provider Emergency Medicine; PCP Internal Medicine
DX: D64.9 Anemia, unspecified (principal); R06.09 Other forms of dyspnea; C90.00 Multiple myeloma not having achieved remission
CPT/HCPCS: 36415; 36430; 80053; 85007; 85025; 86850; 86900; 86901; 99284; P9016

== ENCOUNTER 2025-02-19 12:19 | Day surgery (SDC) | payer MEDICARE, SELFPAY ==
--- NOTE | 2025-02-19 | PATH_ITS ---
[facility] Accession Number: [id number] No. of containers..02 Tissue . 01 Material submitted: . PART A: stomach - STOMACH, ANTRAL BIOPSIES PART B: ileo-cecal valve - ILEOCECAL VALVE MASS BIOPSY . 01 Diagnosis: Part A: STOMACH, ANTRAL BIOPSIES: Gastric oxyntic mucosa with mild changes of reactive gastropathy. No Helicobacter organisms identified on H/E stain. No intestinal metaplasia, dysplasia, or malignancy identified. . Part B: ILEOCECAL VALVE MASS BIOPSY: 1. Colonic tissue with invasive adenocarcinoma, moderately differentiated. 2. No lymphovascular or perineural invasion identified. See comment. . Specimen Comments: These results were called by Dr. Kaminski to Dr. Perry on 03/01/2025 at 1130. This case has also been reviewed by Dr. Lindsay Anderson, who concurs with the diagnosis. . Immunohistochemical staining for markers of microsatellite instability (MSI) will be performed, and the results will be reported as an addendum. [facility] 03/01/2025 1139 Local . 01 Electronically signed: . Chris Kaminski MD, Pathologist NPI- [id number] . 01 Gross description: . Part A: ANTRAL BIOPSIES: Received in formalin are 3 fragment(s) of carias, soft tissue measuring 0.2 x 0.2 x 0.2 cm to 0.3 x 0.2 x 0.2 cm submitted entirely in 1 cassette(s) . Part B: ILEOCECAL VALVE MASS BIOPSY: Received in formalin are 4 fragment(s) of carias, soft tissue measuring 0.2 x 0.2 x 0.2 cm to 0.4 x 0.2 x 0.2 cm submitted entirely in 1 cassette(s) /GAUDENCIO 03/01/2025 1139 [facility] . 01 Pathologist provided ICD-10: C18.0, K29.60 . 01 CPT . 092013, 238470, T46462, G38281 Specimen Comment: A courtesy copy of this report has been sent to [facility] Pathology Performed at: [address] [address], [place], [place] [id number] MD Chris Kaminski MD Phone: [phone]
[2025-02-19] MEDS: LACTATED RINGERS 1,000 ML 42 ML IV (12:43)
[2025-02-19 13:01] VITALS: BP 138/75; PULSE 75; RESP 16; TEMP 36.1; O2SAT 95
--- NOTE | 2025-02-19 13:25 | PM.PREOP ---
Pre-operative Note Interval Note History & Physical reviewed/Exam performed by Physician: Yes Changes to H&P: No ASA Class (for procedural sedation): II
[2025-02-19 14:36] VITALS: BP 117/64; PULSE 59; RESP 12; TEMP 37; O2SAT 99
[2025-02-19 14:40] VITALS: BP 121/64; PULSE 57; RESP 12; O2SAT 99
[2025-02-19 14:45] VITALS: BP 121/64; PULSE 64; RESP 14; O2SAT 98
[2025-02-19 14:50] VITALS: BP 133/65; PULSE 66; RESP 15; TEMP 36.8; O2SAT 98
--- NOTE | 2025-02-19 14:52 | P.OP.EGD&C_ITS ---
Operative Date/Time/Diagnoses Date of procedure: 02/19/25 Time of procedure: 14:52 Pre-op diagnosis: Anemia Post-op diagnosis: other (Mass worrisome for neoplasm at ileocecal valve (6cm), mild antral gastritis) Procedure & Clinicians Study performed: EGD/colonosocpy with biopsy Same procedure(s) as scheduled: Yes Indications: 84yo M with anemia unclear etiology Surgeon: Ra Perry Anesthesia Type: MAC +/- Procedure Notes SCOAP/Timeout: Performed Procedure in detail: EGD Informed consent was obtained. The procedure, its risks, benefits, and alternatives were discussed. The patient was placed in the left lateral decubitus position. After satisfactory sedation by anesthesia, the video endoscope was inserted into the oropharynx and guided under direct vision into the esophagus, stomach, and duodenum. The duodenal bulb and second portion were unremarkable. The scope was withdrawn to the stomach and retroflexed. There was no increased fluid, food or secretions in the upper gastrointestinal tract. There was very minimal, nonspecific, patchy antral erythema. Biopsies were obtained for Helicobacter pylori. No erosions or ulcers. The scope was withdrawn to the esophagus. The Z-line and gastroesophageal junction were located at about 40 cm. No Ram?s or esophagitis. The patient tolerated the procedure very well. The patient was then transferred to the recovery area in good condition. There were no apparent complications. Significant findings: Mild antral gastritis, bx taken for hpylori Colonoscopy Patient placed in left lateral recumbent position. Time out was performed. Procedural sedation was administered by anesthesia. Examination began with a thorough inspection of the perianal area. There was no evidence of fissures, fistulae, external hemorrhoids or cutaneous malignancy. The colonoscope was then placed into the rectum and the lumen was insufflated with carbon dioxide. The scope was carefully advanced forward. Ultimately the cecum was intubated and confirmed by identification of the ileocecal valve, the appendiceal orifice and the confluence of the taenia. The scope was then slowly withdrawn examining the colon thoroughly in all directions. In the rectum, retroflexion of the scope was performed for inspection of the distal rectum and anal canal. ?The colonoscopy was notable for the following: ?1. Quality of the preparation-good, [place] 2-3 ?2. Malignant appearing 6cm tumor at ileocecal valve, cold biopsies taken 3. Sigmoid diverticulosis, scattered diverticulae in ascending colon Have ordered CT abd/pelvis to evaluate for possible hepatic lesions. 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
== END 2025-02-19 15:45 | disposition home or self-care (01) ==
PROVIDERS: PCP Internal Medicine; Referring Provider Surgery; Visit Provider Surgery
PROC: 0DJ08ZZ Inspection of Upper Intestinal Tract, Via Natural or Artificial Opening Endoscopic (ICD-10-PCS; CPT 45380; principal; 2025-02-19 13:15)
PROC: 0DJD8ZZ Inspection of Lower Intestinal Tract, Via Natural or Artificial Opening Endoscopic (ICD-10-PCS; CPT 45378; 2025-02-19 13:15)
DX: D64.9 Anemia, unspecified (principal); K29.70 Gastritis, unspecified, without bleeding; K57.30 Diverticulosis of large intestine without perforation or abscess without bleeding; K31.9 Disease of stomach and duodenum, unspecified; C18.0 Malignant neoplasm of cecum
CPT/HCPCS: 45380; 43239; J2405; J2704

== ENCOUNTER → 2025-02-25 09:37 | Outpatient (CLI) | payer MEDICARE, SELFPAY ==
--- NOTE | 2025-02-25 09:41 | DI.CT.S_ITS ---
PROCEDURE: CT CHEST ABD PEL W CON INDICATIONS: Mass at ileocecal valve, worrisome for neoplasia TECHNIQUE: After the administration of intravenous contrast, 5 mm thick sections acquired from the lung apices to the symphysis. 5 mm coronal and sagittal reformats were performed, with additional 7 mm MIP reformats through the lungs. For radiation dose reduction, the following was used: automated exposure control, adjustment of mA and/or kV according to patient size. COMPARISON: None. FINDINGS: Image quality: Diagnostic Lungs and pleura: Scattered scarring atelectasis. Moderate emphysematous changes. No airspace consolidation or pleural effusions. No suspicious focal nodule is seen. Micro nodules under 4 mm and granulomas are seen. Mediastinum, heart, and esophagus: Trace hiatal hernia. Small pericardial effusion. No enlarged lymph nodes by size criteria. Atherosclerotic calcifications. Chest wall and thyroid: No enlarged lymph nodes in the axilla or supraclavicular regions by size criteria. Thyroid is unremarkable. Liver: Unremarkable Gallbladder and biliary system: Cholelithiasis, nondilated Pancreas: No ductal dilation Spleen: Nonenlarged Adrenals: No discrete nodules Kidneys: Multiple renal cysts. No solid enhancing renal mass is identified. Subcentimeter lesions are too small to characterize, likely also cysts. No hydronephrosis. Vessels and lymph nodes: Main portal vein appears patent. No abdominal aortic aneurysm. Atherosclerotic calcifications are present. There are no enlarged lymph nodes by size criteria Bowel and peritoneum: Colonic diverticulosis. There is a small amount pelvic free fluid. No drainable abscess or ascites. No bowel obstruction. In the ileocecal region, there is a soft tissue lesion suspected measuring approximately 3.5 x 2.2 cm (3/39). Just posterior to this region, there is a borderline enlarged lymph node (2/177) measuring 0.9 cm. Body wall: Small fat and omentum containing umbilical hernia. Pelvis: Bladder is unremarkable. Prostatomegaly and heterogeneous enhancement prostate. This is nonspecific. Bones: Degenerative changes. No aggressive appearing osseous abnormality. IMPRESSION: Suspicious soft tissue at the ileocecal valve, likely correlating with the abnormality clinically reported. There is an adjacent borderline enlarged mesenteric lymph node. No bowel obstruction. No definite suspicious liver lesion. Small volume pelvic free fluid. No definite metastasis above the diaphragm. Background pulmonary emphysema. Low suspicion micro nodules and presumed granulomas are present in the lungs. However, attention on follow up suggested given patient's emphysema and probable malignancy in the abdomen Other findings above. Dictated by: Lencho Kumar M.D. on 02/27/2025 at 5:53 Approved by: Lencho Kumar M.D. on 02/27/2025 at 6:01
== END ==
LOC: CT 09:40
PROVIDERS: PCP Internal Medicine; Referring Provider Surgery; Visit Provider Surgery
DX: K63.9 Disease of intestine, unspecified (principal); D64.9 Anemia, unspecified; K80.20 Calculus of gallbladder without cholecystitis without obstruction; I31.39 Other pericardial effusion (noninflammatory); N28.1 Cyst of kidney, acquired; I70.0 Atherosclerosis of aorta; K57.90 Diverticulosis of intestine, part unspecified, without perforation or abscess without bleeding; K42.9 Umbilical hernia without obstruction or gangrene; N40.0 Benign prostatic hyperplasia without lower urinary tract symptoms; J43.9 Emphysema, unspecified
CPT/HCPCS: 71260; 74177; Q9967

== ENCOUNTER 2025-03-10 12:12 | Inpatient (IN) | payer MEDICARE, SELFPAY ==
[2025-03-04 08:18] VITALS: BMI 21.9
[2025-03-10] VITALS (14 sets, daily range): BP systolic 113–136; BP diastolic 53–76; PULSE 53–73; RESP 11–27; TEMP 35.8–36.7; O2SAT 97–100; BMI 21.2
--- NOTE | 2025-03-10 | PATH_ITS ---
[facility] Accession Number: [id number] No. of containers..01 Tissue . 01 Material submitted: . colon - RIGHT HEMICOLECTOMY . 01 Diagnosis: COLON, RIGHT HEMICOLECTOMY: Invasive adenocarcinoma, moderately differentiated, with the following features. . CASE SUMMARY: COLON RESECTION STANDARDS: AJCC 8. . SPECIMEN Procedure: Right hemicolectomy. . TUMOR Tumor site: Cecum. Histologic type: Adenocarcinoma. Histologic grade: G2, moderately differentiated. Tumor size: Greatest dimension in centimeters: 4.8 cm. Additional dimension in centimeters: 4.2 cm. Tumor extent: Invades through muscularis propria into the pericolic tissue. Macroscopic tumor perforation: Not identified. Lymphatic and/or vascular invasion: Not identified. Perineural invasion: Not identified. Tumor budding score: Low (0-4). Treatment effect: No known presurgical therapy. . MARGINS Margin status for invasive carcinoma: All margins negative for invasive carcinoma. Margin status for non-invasive tumor: All margins negative for high-grade dysplasia/intramucosal carcinoma and low-grade dysplasia. . REGIONAL LYMPH NODES: Regional lymph node status: Regional lymph nodes present. All regional lymph nodes negative for tumor. Number of lymph nodes examined: 15. Tumor deposits: Not identified. . pTNM CLASSIFICATION (AJCC 8TH EDITION) pT3N0 . ADDITIONAL FINDINGS None identified. [facility] 03/15/20251953 Local . 01 Electronically signed: . Chris Kaminski MD, Pathologist NPI- [id number] . 01 Gross description: . Received in formalin with two identifiers and right hemicolectomy is a 13.0 x 3.5 cm colon with attached 3.2 x 2.5 cm ileum with no appendix identified. The serosa is carias and smooth with creeping fat and no areas of puckering identified. The ileal margin is inked blue while the colon margin is inked black, and the mesenteric margin is inked green. The lumen contains a small amount of brown mucoid material. A sessile mass (4.8 x 4.2 cm) is identified within the cecum located 0.5 cm from the ileocecal valve. The mass extends through the wall and into the adjacent fat. The mass is widely free from all margins. The remaining mucosa is carias and velvety with normal-appearing folds and no additional lesions identified. The weaver average 0.3 cm thick with no diverticula identified. Fifteen carias lymph node candidates are identified ranging from 0.2 to 1.1 cm in greatest dimension. . Mva Operator sections are submitted as follows: A1: Rep margins en face. A2: Mass with deepest extension. A3: Mass to ileocecal valve. A4: Normal mucosa. A5: Three intact lymph node candidates. A6: Two inked and bisected lymph node candidates. A7: Two intact lymph node candidates. A8: Four intact lymph node candidates. A9: Four intact lymph node candidates. ([id number]) /MRV 03/12/2025 1910 Local . 01 Pathologist provided ICD-10: C18.0 . 01 CPT . 761784 Specimen Comment: A courtesy copy of this report has been sent to [facility] Pathology Performed at: [address] [address], [place], [place] [id number] MD Chris Kaminski MD Phone: [phone]
[2025-03-10 13:10] LABS: Hematocrit 27.8 % (41-53); Hemoglobin 9.5 g/dL (13.5-17.5); Mean Corpuscular HGB Conc 34.0 % (30-36); Mean Corpuscular Hemoglobin 31.4 PG (26-34); Mean Corpuscular Volume 92.5 fL (80-100); Platelet Count 154 X10^3/uL (150-400)
[2025-03-10] MEDS: LACTATED RINGERS 1,000 ML 42 ML IV ×2 (13:15→15:38)
[2025-03-10] MEDS: ACETAMINOPHEN 325 MG TABLET 975 MG PO (13:15)
[2025-03-10 13:36] LABS: Blood Urea Nitrogen 22 mg/dL (9-20); Calcium 8.6 mg/dL (8.4-10.2); Carbon Dioxide 22 mmol/L (22-32); Chloride 107 mmol/L (98-107); Estimated Glomerular Filt Rate 54 mL/min (>60); Glucose 91 mg/dL (70-99); HEMOLYSIS 17 (0-50); Potassium 3.8 mmol/L (3.4-5.1); Sodium 139 mmol/L (137-145)
[2025-03-10 14:08] LABS: Carcinoembryonic Antigen 17.9 ng/mL (0.1-3.0)
--- NOTE | 2025-03-10 14:17 | PM.PREOP ---
Pre-operative Note Interval Note History & Physical reviewed/Exam performed by Physician: Yes Changes to H&P: No ASA Class (for procedural sedation): II
[2025-03-10] MEDS: CEFAZOLIN 2 GM/100 ML PREMIX 100 ML IV (14:37)
[2025-03-10] MEDS: metroNIDAZOLE 500 MG/100 ML PIGGYBACK 100 MG IV (14:45)
--- NOTE | 2025-03-10 15:04 | SUR.OPER ---
Supine on pink padded OR bed, head on pillow, arms padded and tucked at sides, purple strap across shoulders, legs uncrossed, pillow under knees, safety belt at thigh, tape over blanket over lower legs gel under heels
[2025-03-10] MEDS: BUPIVACAINE 0.25% W/ EPI 30 ML VIAL 60 ML INJ (15:30)
--- NOTE | 2025-03-10 16:42 | P.OP_ITS ---
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 No liver mets on CT. Baseline CEA pending. Surgeon: Ra Perry On Site Services Specialist: Matthew Rush Anesthesia Type: General Operative Notes Findings: Palpable tumor at ileocecal valve as expected. Large right renal cyst. No evidence for liver mets. Closure Type: primary Specimen(s): other (Right hemicolectomy specimen) Applied: none Estimated Blood Loss (mL): 20 Blood products transfused: none Procedure in detail: Assistants: MARY Kinney After informed consent and satisfactory general endotracheal anesthesia the patient was positioned supine with pressure points well padded. Dove catheter was inserted under sterile conditions. The abdomen was shaved, prepped and draped in the usual sterile manner. Surgical time-out was performed to ensure we had the proper patient, position and procedure with all team members in agreement. The pneumoperitoneum was established using a Rodriguez trocar direct cutdown technique via a supraumbilical incision. The skin incision was made with a #11 blade after infiltrating the skin and subcutaneous tissues with local anesthetic. We used a total of 60 cc of 0.25% Marcaine with epinephrine. This was used prior to making the skin incisions, approximately 20 cc injected as a laparoscopic guided TAP block intraoperatively and the remainder injected into the musculature after closure of the supraumbilical incision. An 0 Vicryl [id number] suture was placed in the supraumbilical fascia and the Rodriguez trocar was inserted through a peritoneal incision. The abdominal cavity was insufflated to a pressure of 15 mmHg with carbon dioxide gas. The 5 mm 30 degree lens was used throughout and no trauma secondary to the trocar insertion was noted. Two additional left lateral 5 mm trocars were inserted in the left upper quadrant and left lower quadrant under direct vision. A third 5mm placed in RLQ. The patient was placed in [id number] position. He was noted to have significant adhesions between the ascending colon and the lateral abdominal wall and these were taken down with sharp and blunt dissection restoring the normal anatomy. We then placed tension on the terminal ileum mesentery highlighting the ileocolic vessels. The peritoneum was scored and the vessels skeletonized and these were controlled using large hemalock clips and the distal portion was divided with the LigaSure device with excellent hemostasis. The peritoneal dissection was continued cephalad toward the anticipated location of colon transection in the transverse colon. The duodenum was easily identified throughout and preserved. Once we dissected through the mesentery and retroperitoneum as a medial to lateral approach the ureter and gonadal vessels and duodenum were easily identified and preserved. The patient did not have an identifiable right branch of the middle colic artery. Once the medial dissection was complete we mobilized along the white line of Toldt for the lateral dissection. The gastrocolic omentum was opened and continued around the hepatic flexure to fully mobilize the colon. The omentum was mobilized off of the proximal transverse colon as well. We had to do additional work due to adhesions in the terminal ileum and we continued this dissection until we were confident that we could mobilize the specimen for the extracorporeal anastomosis. We controlled the ileal mesentery with the LigaSure with excellent hemostasis. We then lengthened the supraumbilical incision and placed the Joseph wound protector and brought the specimen extracorporeally. We had plenty of room with the terminal ileum the ascending colon and the proximal transverse that could be easily brought out through this incision. We divided the transverse colon and the terminal ileum with a LOYD 75 blue load. We then performed anti mesenteric 3-0 Vicryl sutures interrupted to bring the ileum and the transverse colon in proximity. The staple line corners were excised with cautery and a 3rd LOYD 75 blue load stapler was used to create the enteric anastomosis. We inspected the anastomosis for bleeding and it was noted to be hemostatic. We utilized the 20 second tissue desiccation pause in compression prior to each stapler firing. Liquid stool was suctioned with the pool sucker and controlled with wet blue towels. There was no intraperitoneal spillage. The stapler defect was closed in 2 layers using a running 3-0 Vicryl suture on an SH needle and then a 2nd layer interrupted dunking the closure with interrupted 3-0 Vicryl stitches. The anastomosis was widely patent by palpation and the closure confident. The mesenteric defect was large and I elected not to close this. My judgment is that this would be at low risk for creating an obstructive internal hernia. With this we returned the anastomosis to the peritoneal cavity. Care was taken to ensure we had no twisting when we created the anastomosis. We then repaired an umbilical hernia defect by extending the fascial incision to the hernia. The peritoneum was a distinct layer so this was closed using 2-0 Vicryl running. The umbilical hernia defect was closed using 0 PDS suture in a running manner closing the fascia. We then injected the remainder of the local anesthetic for postoperative analgesia. The fascial closure reumbilicated the umbilical skin. The subcutaneous plane was then irrigated with copious amounts of dilute Betadine solution. We then re- insufflated the abdomen and reinserted the camera and hemostasis was noted to be excellent and the greater omentum was draped over the anastomosis. The pneumoperitoneum was released and the trocars were removed. There was no bleeding noted at the trocar sites. The skin incisions were closed using 4-0 Monocryl in a subcuticular manner after irrigating the subcutaneous plane with Betadine solution. Dermabond glue was applied as a final dressing. The estimated blood loss was minimal. The instrument sponge and needle counts were all correct x2. The patient tolerated the procedure well and was extubated in the operating room after reversal of general anesthesia and transported to the recovery area in stable condition. Complications: none Post-operative Condition: stable Disposition: PACU
[2025-03-10] MEDS: HYDROCODONE/ACET 5/325 TABLET 1 TAB PO (17:46)
[2025-03-10] MEDS: PHENAZOPYRIDINE 100 MG TABLET 200 MG PO (17:47)
[2025-03-10] MEDS: SODIUM CHLORIDE 0.9% 1,000 ML 40 ML IV (17:47)
[2025-03-10 17:48] LABS: Add Manual Diff / Slide Review NO; Hematocrit 25.6 % (41-53); Hemoglobin 8.5 g/dL (13.5-17.5); Lymphocytes Absolute Auto 600 /uL (1100-4500); Mean Corpuscular HGB Conc 33.2 % (30-36); Mean Corpuscular Hemoglobin 30.5 PG (26-34); Mean Corpuscular Volume 92.0 fL (80-100); Platelet Count 137 X10^3/uL (150-400)
[2025-03-10 17:55] LABS: Blood Urea Nitrogen 22 mg/dL (9-20); Calcium 8.1 mg/dL (8.4-10.2); Carbon Dioxide 23 mmol/L (22-32); Chloride 107 mmol/L (98-107); Estimated Glomerular Filt Rate 58 mL/min (>60); Glucose 153 mg/dL (70-99); HEMOLYSIS < 15 (0-50); Magnesium 1.9 mg/dL (1.6-2.3); Potassium 3.9 mmol/L (3.4-5.1); Sodium 138 mmol/L (137-145)
[2025-03-10] MEDS: ATORVASTATIN 20 MG TABLET 10 MG PO (21:13)
[2025-03-10] MEDS: HEPARIN 5,000 UNIT/ML VIAL 5000 UNIT SUBCUT (21:13)
--- NOTE | 2025-03-10 23:11 | PC.NURSE ---
Addendum entered by Myranda Rodriguez R.N. 03/11/25 04:35: UOP again low at 125cc and is a dark orange color. Dr. Salgado informed and order received for 1 dose of IV Lasix. Original Note: Patient is alert and oriented. Breath sounds CTA with RA sat of 100%; is on continuous oximetry. HRR. Denied nausea. BT absent. Abdomen is mildly distended and tender to touch. Initially described pain as bad, the worst he has ever experienced. Medicated with IV Dilauidid with pain subsiding and is currently asleep. Lap sites x4 to abdomen are sealed with dermabond and there is no redness noted around sites. Indwelling catheter is patent. Urine is clear, dark farrukh with past 4h UOP being only 150cc. Dr. Salgado notified and he ordered a NS bolus over next 2 hours. Is able to turn himself in bed. Has ambulated in mayer x 2 this shift using walker and SBA and tolerated well. Wearing bilateral calf SCD's. Fall risk score is high and bed alarm is activated.
[2025-03-10] MEDS: SODIUM CHLORIDE 0.9% 500 ML 250 ML IV (23:20)
[2025-03-11] MEDS: HYDROCODONE/ACET 5/325 TABLET 1 TAB PO ×2 (01:18→10:32)
[2025-03-11 01:30] VITALS: BP 129/53; PULSE 80; RESP 18; TEMP 36.1; O2SAT 100
[2025-03-11] MEDS: FUROSEMIDE 20 MG/2 ML VIAL IV (04:25)
[2025-03-11 07:00] VITALS: O2SAT 99
[2025-03-11 08:00] VITALS: BP 137/47; PULSE 66; RESP 16; TEMP 36.1; O2SAT 99
--- NOTE | 2025-03-11 08:23 | P.PN_ITS ---
Subjective Subjective Date Patient Seen: 03/11/25 Time Patient Seen: 08:24 Interval history: POD#1 Right hemicolectomy for adenocarcinoma at [facility] Stable overnight Tolerating clear liquids No flatus or BM Walking halls Urine in gregg discolored by pyridium Denies n/v Exam Vital Signs (past 8 hours): - 03/11/25 01:30 Temperature 96.9 F L Pulse Rate 80 Respiratory Rate 18 Blood Pressure 129/53 L Pulse Oximetry 100 Oxygen Flow Rate 0 Oxygen Delivery Method Room Air Oxygen Flow Rate 0 Const General: comfortable Orientation: alert and oriented x3 Resp Effort & Inspection: normal respiratory effort and able to speak in complete sentences Auscultation: clear to auscultation bilaterally Cardio Rate: regular rate GI Other: ABD: mild tenderness appropriate for postop, non-peritoneal, all incisions CDI without erythema or drainage Extrem Other: without pitting edema Objective Labs 03/10/25 17:34 03/10/25 17:34 Labs: Laboratory Results - last 24 hr 03/10/25 03/10/25 12:58 17:34 WBC 4.4 L 6.0 RBC 3.01 L 2.78 L Hgb 9.5 L 8.5 L Hct 27.8 L 25.6 L MCV 92.5 92.0 MCH 31.4 30.5 MCHC 34.0 33.2 RDW 17.8 H 18.0 H Plt Count 154 137 L Neut % (Auto) 76.4 H Lymph % (Auto) 10.1 L [place] % (Auto) 12.6 Eos % (Auto) 0.5 L Baso % (Auto) 0.4 Neut # (Auto) 4600 Lymph # (Auto) 600 L [place] # (Auto) 800 Eos # (Auto) 0 Baso # (Auto) 0 Sodium 139 138 Potassium 3.8 3.9 Chloride 107 107 Carbon Dioxide 22 23 BUN 22 H 22 H Creatinine 1.30 H 1.23 Estimated GFR 54 L 58 L BUN/Creatinine Ratio 16.9 17.9 Glucose 91 153 H Calcium 8.6 8.1 L Magnesium 1.9 Carcinoembryonic Ag 17.9 H PFSH Medical History Right bundle branch block Peripheral neuropathy Monoclonal gammopathy Atherosclerosis of aorta Paraganglioma Lower urinary tract symptoms (LUTS) Seasonal allergies Mumps Measles Chicken pox Benign prostatic hyperplasia Esophageal reflux (07/07/03) Hypogonadism in male (05/31/17) Lung nodule (06/12/16) Mixed hyperlipidemia (06/03/15) Hypertension (02/23/11) Surgical History History of lung surgery (~2011) Social History marital status: number of children: 1 household members: spouse lives independently: Yes caregiver/support person: No housing: house pets and animals: No education level: college occupational status: other Previous occupational history: [employer] travel history: recurrent leisure activities: other Smoking Status: Former smoker Tobacco: How many years used: 30 Smokeless tobacco user: other quit status: quit date established second hand exposure: No alcohol intake: current substance use type: does not use Assessment & Plan Assessment and plan (1) Colon cancer, ascending: Status: Acute Plan POD#1 Right hemicolectomy Stable overnight Ambulating Tolerating Clears Advance to full liquids Heplock IV D/C gregg, st cath prn Await flatus/BM Await path Time-Based Coding :: [TOTAL MINUTES] spent with patient and on the chart (including review of chart, obtaining history, exam, reviewing outside data, placing orders, documenting exam and treatment plan, and counseling patient) on [DATE]. 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
--- NOTE | 2025-03-11 10:19 | CM.DANOTE ---
Initial DCP Assessment Visit Note Reviewed EMR and team rounds for pt's medical status and updates. Met with pt at bedside to introduce self and role, pt was found to be alert/oriented, and able to discuss his discharge needs/plan. Pt lives independently other than a walker in his own home with his spouse in [place]. He typically drives both of them when needed, however we will need to confirm the dc transport plan once he's medically stable. Payor: Medicare Attending: Dr. Perry PCP: Dr. Davison Pt is a 84 year-old M post-op day 1 from a R-hemicolectomy surgery secondary to newly diagnosed colon cancer. He had recent colonoscopy due to chronic iron deficiency anemia at which time the tumor was identified. Pt was doing well on clear liquids earlier today, and has now been advanced to full liquids. He has been ambulating the halls all morning, and his pain is well controlled. Pt requested resource assistance for hiring in-home caregivers for transportation to errands/appointments until he can drive again. DCP will continue to monitor for any further evolving needs. 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 Yes Advance Directives No on File History Provided By Patient,Medical Record Has Patient been No admitted in last 30 days? Prior Living House Arrangements Household Members spouse Type of Drives own vehicle transporation used prior to admit Independent with ADL No: modified independent with a walker 's Is patient alert and Yes oriented? Caregiver for Yes: spouse also has pain/health issues Another DME Already Rented / Bath Bench,Elevated Toilet Seat,FWW / Walker Owned Comment Home caregiver for shopping/errands/appointments until he can drive again. OBED provided resources. Barriers to No Discharge Discharge Plan Home Referrals Initiated None needed Whiteboard Updated Yes in Patient Room with name and ext. # of [employer] Professor Review Status In Process Please Provide Date 03/11/25 Initial DC Assessment Was Performed Pre-Anesthesia Assessment Start: 03/04/25 08:18 Freq: Status: Complete Protocol: Document 03/04/25 08:18 LB (Rec: 03/04/25 08:41 LB [id number]) Pre-Anesthesia Assessment PAC Comment 03/01/25 - Pt refused phone assessment. 03/04/25 Chart assessment. Patient Information Chart Review Reviewed Via Diagnostic Results BMP/CMP,CBC Comment 01/29/25 at . EKG 04/28. 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 patient quit smoking Substance Use Type [ does not use #R] Patient is No completely paralyzed or completely immobile Is patient on oxygen No ? Does patient have Yes CANDELARIA/SOB Hx Sleep Apnea No Currently Taking a Yes: Propranolol 20mg BID Beta Akash Hx SOB Yes Anti-Coagulant No Therapy Cardiac Testing Yes: Echo 05/28. Hx Pacemaker/ICD No Hx Urinary Self No Catheterization Diabetes No Presence of External Yes: tooth implant, bilat IOL or Internal Medical Devices Marital Status Lives With spouse Patient Discharge Return Home Plan Description Emergency Contact Annette Tinsley - Name Emergency Contact [phone] Phone Number Advance Directives? Yes Advance Directives No on File Power of Adult Neuropsychologist No
[2025-03-11] MEDS: PROPRANOLOL 10 MG TABLET PO (10:28)
[2025-03-11] MEDS: LIDOCAINE 2% (GLYDO) 6 ML GEL TOP (16:50)
--- NOTE | 2025-03-11 17:19 | PC.NURSE ---
Pt had no output since removal of catheter in AM, KD Real performed bladder scan, residual 420mL. Pt attempted 3x to urinate, but was only able to void 50mL over the course of the attempts. Explained process of straight cathing to pt. Pt requested lidocaine gel. Called MD Perry, received verbal order for lidocaine gel. Upon straight cathing, pt voided 500mL of clear orange urine. Pt tolerated procedure well. Pt stated he did not feel any pain (though did not feel any different after). Encouraged pt to continue drinking fluids. KD Real helped pt get set up for dinner. Pt currently sitting on side of bed, bed alarm on, bed low/locked, call light within reach. Plan of care continues.
[2025-03-11 19:00] VITALS: O2SAT 96
[2025-03-11 20:00] VITALS: BP 116/43; PULSE 64; RESP 18; TEMP 36.4; O2SAT 99
[2025-03-11 20:22] LABS: Hematocrit 26.8 % (41-53); Hemoglobin 9.0 g/dL (13.5-17.5); Mean Corpuscular HGB Conc 33.4 % (30-36); Mean Corpuscular Hemoglobin 30.9 PG (26-34); Mean Corpuscular Volume 92.6 fL (80-100); Platelet Count 144 X10^3/uL (150-400)
[2025-03-11 20:25] LABS: Add Manual Diff / Slide Review YES
[2025-03-11 20:30] LABS: Blood Urea Nitrogen 19 mg/dL (9-20); Calcium 8.1 mg/dL (8.4-10.2); Carbon Dioxide 27 mmol/L (22-32); Chloride 101 mmol/L (98-107); Estimated Glomerular Filt Rate 54 mL/min (>60); Glucose 116 mg/dL (70-99); HEMOLYSIS < 15 (0-50); Magnesium 1.8 mg/dL (1.6-2.3); Potassium 4.1 mmol/L (3.4-5.1); Sodium 135 mmol/L (137-145)
[2025-03-11 20:45] LABS: Lymphocytes Percent Manual 9.0 % (25-45); Monocytes Percent Manual 44.0 % (2-11); Neutrophils Absolute Manual 5358 /uL (3000-5900); Segmented Neutrophils Percent 47.0 % (38-70); Total Cells Counted 100
[2025-03-11 20:48] LABS: Hypochromasia 1+; Rouleaux 1+
[2025-03-11] MEDS: ATORVASTATIN 20 MG TABLET 10 MG PO (20:53)
[2025-03-12] VITALS: BP 128/58; PULSE 78; RESP 18; TEMP 36.4; O2SAT 97
--- NOTE | 2025-03-12 04:27 | PC.NURSE ---
Addendum entered by Preethi Bush R.N. 03/12/25 07:40: 04:45- Pt with increased agitation, tele removed d/t refusal. Wants to take home medications, meds were sent to pharmacy. . Provided education regarding medications. He shouted this is socialism, if you are a socialist, you and I aren't going to get along. The systems need to change. I should be able to take my own medications, I've been taking them for 50 years! Addendum entered by Preethi Bush R.N. 03/12/25 05:08: Continuation from last note. Patient presented with AMS at 21:20. Dr. Krause notified at 21:25 and ordered to put on tele. Original Note: Patient presented with altered mental status near beginning of shift. Assisted to the bathroom, requested he use the urinal for urine measurement. He became agitated and wanted to talk to someone, there are too many people working with me. He was very focused on who helped him lastHe proceeded to ambulate out into the mayer saying he wanted to speak with someone. Able to redirect to room.
--- NOTE | 2025-03-12 07:13 | PM.DS.IH.1 ---
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 He was tolerating liquids the first night of surgery, tolerated full liquids by POD#2. He ambulated in the halls without issue. No abdominal distention throughout his stay. No BM prior to discharge, but no bloating, tympany or nausea. Afebrile, VSS throughout stay. Has known BPH, taking prostate meds at home. Gregg postop removed on POD#1, required straight cath after gregg removed but was voiding spontaneously by POD#2. Discharged to home on POD#2. He took very little pain medication and did not require a narcotic prescription. He will see me in the office in 2 weeks. I recommend he f/u with urology. He saw a urologist at in the past who retired. Status at Discharge Cognitive/behavioral status at discharge: oriented Functional status at discharge: independent ambulation Overall status at discharge: patient is back to baseline Time Spent with Patient Time spent: Greater than 30 minutes Exam Vital Signs (past 8 hours): - 03/12/25 00:00 Temperature 97.5 F L Pulse Rate 78 Respiratory Rate 18 Blood Pressure 128/58 L Pulse Oximetry 97 Oxygen Flow Rate 0 Oxygen Delivery Method Room Air Oxygen Flow Rate 0 Const General: comfortable Orientation: alert and oriented x3 Resp Effort & Inspection: normal respiratory effort and able to speak in complete sentences Auscultation: clear to auscultation bilaterally Cardio Rate: regular rate Rhythm: regular rhythm GI Palpation: soft (appropriate tenderness for postop; incisions CDI, no erythema or drainage) Extrem Other: without pitting edema Objective Labs 03/11/25 20:14 03/11/25 20:14 Labs: Laboratory Results - last 24 hr 03/11/25 20:14 WBC 11.4 H D RBC 2.90 L Hgb 9.0 L Hct 26.8 L MCV 92.6 MCH 30.9 MCHC 33.4 RDW 17.9 H Plt Count 144 L Neut % (Auto) Not Reportable Lymph % (Auto) Not Reportable [place] % (Auto) Not Reportable Eos % (Auto) Not Reportable Baso % (Auto) Not Reportable Lymph # (Auto) Not Reportable [place] # (Auto) Not Reportable Baso # (Auto) Not Reportable Total Counted 100 Seg Neutrophils % 47.0 Lymphocytes % (Manual) 9.0 L Monocytes % (Manual) 44.0 H Neutrophils # (Manual) 5358 Plt Morphology Comment RBC Morphology See below Hypochromasia 1+ H Rouleaux 1+ H Sodium 135 L Potassium 4.1 Chloride 101 Carbon Dioxide 27 BUN 19 Creatinine 1.31 H Estimated GFR 54 L BUN/Creatinine Ratio 14.5 Glucose 116 H Calcium 8.1 L Magnesium 1.8 PFSH Medical History Right bundle branch block Peripheral neuropathy Monoclonal gammopathy Atherosclerosis of aorta Paraganglioma Lower urinary tract symptoms (LUTS) Seasonal allergies Mumps Measles Chicken pox Benign prostatic hyperplasia Esophageal reflux (07/07/03) Hypogonadism in male (05/31/17) Lung nodule (06/12/16) Mixed hyperlipidemia (06/03/15) Hypertension (02/23/11) Surgical History History of lung surgery (~2011) Social History marital status: number of children: 1 household members: spouse lives independently: Yes caregiver/support person: No housing: house pets and animals: No education level: college occupational status: other Previous occupational history: [employer] travel history: recurrent leisure activities: other Smoking Status: Former smoker Tobacco: How many years used: 30 Smokeless tobacco user: other quit status: quit date established second hand exposure: No alcohol intake: current substance use type: does not use Discharge Assessment & Plan Assessment and Plan Assessment: POD #2 laparoscopic right hemicolectomy. D/C home today Plan of Treatment: Will call with path results F/U in office in 2 weeks Shower OK Regular diet Discharge Plan Discharge Plan Patient Disposition: Home Provider Discharge Comment: Regular diet, no carbonation, stop if you feel full or nausea. Shower OK, no swimming. I recommend you see a urologist, Juan José Hearn is a urologist at [facility]. Call the office number [phone] if you need anything. I will call you when we get the pathology test results. Discharge orders & Medications Prescriptions: Continued multivitamin [Multiple Vitamins] Tablet 1 tab PO QDAY Qty: 0 fluticasone propionate 50 mcg/actuation spray,suspension 1 spray NASAL DAILY alpha lipoic acid 1 cap PO DAILY rosuvastatin 5 mg tablet 5 mg PO DAILY Qty: 90 3RF (DME) Disabled Parking See Rx Instructions .ROUTE .MEDSUPPLY Qty: 1 0RF Rx Instructions: Patient qualifies for disabled parking as per the attached form. acetaminophen [Tylenol] 325 mg tablet 325 mg PO ONCE PRN (Reason: pain) ibuprofen 200 mg capsule 200 mg PO Q6H PRN (Reason: pain) metronidazole 500 mg tablet 500 mg PO BID Qty: 3 0RF Rx Instructions: Take at 1PM, 2PM and 11PM day prior to surgery neomycin 500 mg tablet 1 g PO TID Qty: 6 0RF Rx Instructions: administer at 1 PM, 2 PM, and 11 PM the day prior to surgery propranolol 20 mg tablet 10 mg PO DAILY Follow up/Referrals: José Miguel Davison MD [Primary Care Provider, Internal Medicine] Ra Perry MD [Physician, General Surgery] Diet/Activity/Treatments Diet: Diet as Tolerated Diet comment: No carbonation! Activity: Avoid lifting over 10 pounds for 6 weeks. Skin/Wound/Dressing Care Report to your healthcare provider any signs of infection, such as:: chills, fever, night sweats, increased pain, unusual drainage and unusual redness Visit Report/Discharge Packet Instructions: DI for Colectomy, DI for Laparoscopy Stand Alone Forms: Patient Portal/API, Stroke Signs & Symptoms, Surgery Discharge Discharge Data Primary Care Provider: José Miguel Davison [facility] PROFEE Charge Codes Discharge inpatient/observation: [id number]
[2025-03-12 07:40] VITALS: O2SAT 97
[2025-03-12] MEDS: PROPRANOLOL 10 MG TABLET PO (08:06)
[2025-03-12] MEDS: ACETAMINOPHEN 325 MG TABLET 650 MG PO (08:09)
[2025-03-12 08:23] VITALS: BP 144/69; PULSE 85; RESP 14; O2SAT 98
== END 2025-03-12 09:35 | disposition home or self-care (01) | DRG 331 ==
PROVIDERS: Nurse Anesthetist, Certified Registered; Admitting Provider Surgery; PCP Internal Medicine; Referring Provider Surgery; Visit Provider Surgery
PROC: 0DTE0ZZ Resection of Large Intestine, Open Approach (ICD-10-PCS; principal; 2025-03-10 13:45)
DX: C18.2 Malignant neoplasm of ascending colon (principal); D50.9 Iron deficiency anemia, unspecified; N28.1 Cyst of kidney, acquired; K42.9 Umbilical hernia without obstruction or gangrene; N40.0 Benign prostatic hyperplasia without lower urinary tract symptoms; E78.2 Mixed hyperlipidemia; I10 Essential (primary) hypertension; Z87.891 Personal history of nicotine dependence
CPT/HCPCS: 36415; 80048; 82378; 83735; 85007; 85025; 85027; J0690; J1100; J1171; J1644; J1885; J1938; J2405; J2704; J3010; J3490

== ENCOUNTER 2025-04-14 09:33 | Inpatient (IN) | payer MEDICARE, SELFPAY ==
[2025-03-10 17:38] VITALS: BMI 21.2
[2025-04-14] VITALS (18 sets, daily range): BP systolic 117–159; BP diastolic 44–73; PULSE 68–97; RESP 16–27; TEMP 36.6–37; O2SAT 97–100; BMI 21.6
[2025-04-14 09:55] LABS: Add Manual Diff / Slide Review YES; Hematocrit 33.3 % (41-53); Hemoglobin 10.7 g/dL (13.5-17.5); Mean Corpuscular HGB Conc 32.3 % (30-36); Mean Corpuscular Hemoglobin 29.8 PG (26-34); Mean Corpuscular Volume 92.5 fL (80-100); Platelet Count 111 X10^3/uL (150-400)
[2025-04-14 10:03] LABS: INR 1.2 (0.9-1.3); Prothrombin Time 14.0 SECONDS (9.4-12.5)
[2025-04-14 10:06] LABS: Atypical Lymphocytes Percent 4.0 %; Band Neutrophils Percent 1.0 % (3-7); Lymphocytes Percent Manual 1.0 % (25-45); Monocytes Percent Manual 35.0 % (2-11); Neutrophils Absolute Manual 11520 /uL (3000-5900); RBC Morphology Normal Morphology; Segmented Neutrophils Percent 59.0 % (38-70); Total Cells Counted 100
[2025-04-14 10:07] LABS: Alanine Aminotransferase 17 IU/L (<50); Albumin 4.2 g/dL (3.5-5.0); Albumin Globulin Ratio 1.3 (1.0-2.8); Alkaline Phosphatase 72 U/L (38-126); Blood Urea Nitrogen 24 mg/dL (9-20); Calcium 8.7 mg/dL (8.4-10.2); Carbon Dioxide 22 mmol/L (22-32); Chloride 106 mmol/L (98-107); Estimated Glomerular Filt Rate 55 mL/min (>60); Globulin 3.3 g/dL (1.7-4.1); Glucose 152 mg/dL (70-99); HEMOLYSIS < 15 (0-50); Potassium 4.0 mmol/L (3.4-5.1); Sodium 140 mmol/L (137-145); Total Protein 7.5 g/dL (6.3-8.2)
[2025-04-14 10:14] LABS: PTT Partial Thromboplastin Tim 32 SECONDS (25.1-36.5)
--- NOTE | 2025-04-14 10:16 | DI.CT.S_ITS ---
PROCEDURE: CT ANGIO ABD/PEL GI BLEED INDICATIONS: bloody/watery bowel TECHNIQUE: After the administration of intravenous contrast, 2.5 mm sections acquired from the diaphragm to the iliac crests. 10 mm maximum intensity projection (MIP) coronal and sagittal reformats were then performed. For radiation dose reduction, the following was used: automated exposure control. COMPARISON: [facility], CT, CT CHEST ABD PEL W CON, 02/25/2025, 10:41. FINDINGS: Image quality: Diagnostic. Abdominal aorta: No aortic aneurysm or evidence of acute aortic syndrome. Mesenteric arteries: Patent without hemodynamically significant stenosis. Renal arteries: Patent without hemodynamically significant stenosis. Lower chest: Small hiatal hernia. Small pericardial effusion. Normal heart size. Extreme lung bases are clear.. ABDOMEN: Liver: No solid mass. Gallbladder: Small gallstones. Biliary ducts: No biliary dilation. Pancreas: No ductal dilation. Spleen: Size is within normal limits. Adrenal Glands: No adrenal nodules. Kidneys and Ureters: No hydronephrosis. No solid mass. No complex renal cystic lesion which requires follow up. Stomach and Bowel: Apparent interval partial right colectomy including the cecum with ileocecal anastomosis. Sigmoid and rectum have wall thickening and edema with thumbprinting present. Diverticulosis is present. Peritoneum: No abnormal intraperitoneal fluid. No free air. Ventral Wall: No hernia. Abdominal Nodes: No retroperitoneal or mesenteric adenopathy by size criteria. Vessels: Aorta, as above. Normal IVC. PELVIS: Pelvic Organs: Prostatomegaly.. Bladder: Unremarkable. Pelvic Nodes: No enlarged lymph nodes. Miscellaneous: No inguinal hernias are seen. Bones: No aggressive osseous abnormality. Lumbar degenerative change without least moderate canal stenosis at L4-L5. IMPRESSION: 1. Interval partial right colectomy. 2. Distal segmental colitis/proctitis involving the sigmoid and rectum. 3. No acute GI bleed. 4. Lumbar degenerative change with canal stenosis. 5. Cholelithiasis. Dictated by: Juno Zimmerman M.D. on 04/14/2025 at 11:09 Approved by: Juno Zimmerman M.D. on 04/14/2025 at 11:25
--- NOTE | 2025-04-14 10:20 | ED.GIBLEED ---
HPI - GI Bleed General Chief complaint: GI Bleed Stated complaint: Increased Confusion Time Seen by Provider: 04/14/25 10:15 Source: EMS, RN notes reviewed, old records reviewed and other (Dr. 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 Patient's state use sort of disoriented last night he has improved currently. No fevers. No chest pain or shortness of breath. No new nausea or vomiting. He notes little bit of hematuria some difficulty with urination and frequency starting his stream recently. He also notes he has has a little bit of rectal bleeding which he describes as spotting. He states has been going on for a couple days. He notes little bit of abdominal discomfort but describes it as mild. No other new changes. Patient notes he was on oral antibiotics post surgically for an infection in his skin but states that is improved. Dr. Perry is his general surgeon. Dr. Davison's primary care physician. Related Data Home Medications ?Medication ?Instructions ?Recorded ?Confirmed fluticasone propionate 50 1 spray intranasal DAILY 06/04/19 03/29/25 mcg/actuation nasal spray,suspension multivitamin (Multiple Vitamins 1 tab PO QDAY ##0 06/10/23 03/29/25 tablet) alpha lipoic acid 1 cap PO DAILY 05/05/24 03/29/25 acetaminophen 325 mg tablet 325 mg PO ONCE PRN pain 03/01/25 03/29/25 (Tylenol) propranolol 20 mg tablet 10 mg PO DAILY 03/10/25 03/29/25 Previous Rx's ?Medication ?Instructions ?Recorded Disabled Parking #1 ea 05/05/24 rosuvastatin 5 mg tablet 5 mg PO DAILY #90 tabs 05/05/24 cephalexin 500 mg capsule 500 mg PO QID #28 caps 03/29/25 Allergies Allergy/AdvReac Type Severity Reaction Status Date / Time No Known Drug Allergies Allergy Verified 04/14/25 09:42 Review of Systems Review of Systems ROS Unobtainable: All systems reviewed & are unremarkable except as noted in HPI and below Patient History Medical History Right bundle branch block Peripheral neuropathy Monoclonal gammopathy Atherosclerosis of aorta Paraganglioma Lower urinary tract symptoms (LUTS) Seasonal allergies Mumps Measles Chicken pox Benign prostatic hyperplasia Esophageal reflux (07/07/03) Hypogonadism in male (05/31/17) Lung nodule (06/12/16) Mixed hyperlipidemia (06/03/15) Hypertension (02/23/11) Surgical History History of lung surgery (~2011) Social History marital status: number of children: 1 household members: spouse lives independently: Yes caregiver/support person: No housing: house pets and animals: No education level: college occupational status: other Previous occupational history: [employer] travel history: recurrent leisure activities: other Tobacco: How many years used: 30 Smokeless tobacco user: other quit status: quit date established second hand exposure: No alcohol intake: current substance use type: does not use alcohol intake frequency: 0-2 drinks per day Alcohol type: hard liquor Exam Narrative Exam Narrative: GENERAL: Alert and oriented x three, thin elderly male in mild distress HEENT: Head normocephalic, atraumatic, EOMI, pupils reactive, face symmetric, moist mucous membranes NECK: Supple, full range of motion CARDIOVASCULAR: Regular rate and rhythm without murmurs, rubs or gallops. RESPIRATORY: Breath sounds equal bilaterally, no wheezes rales or rhonchi. ABDOMEN: Soft, nontender. Nondistended. Normoactive bowel sounds all 4 quadrants. No guarding or rebound, rigidity, no mass : No CVA tenderness EXTREMITIES: Normal range of motion, no clubbing or edema. Neurovascularly intact NEUROLOGICAL: Cranial nerves II through XII grossly intact. Moving all extremities SKIN: Warm, dry, no petechiae, no rashes or lesions. Initial Vital Signs Initial Vital Signs: Vital Signs Temperature 98.1 F 04/14/25 09:42 Pulse Rate 95 H 04/14/25 09:42 Respiratory Rate 16 04/14/25 09:42 Blood Pressure 156/73 H 04/14/25 09:42 Pulse Oximetry 98 04/14/25 09:42 Oxygen Delivery Method Room Air 04/14/25 09:42 Course Orders Ordered: ED Orders 04/14/25 09:44 Complete Blood Count AUTO DIFF Stat Comprehensive Metabolic Panel Stat Lactate (Lactic Acid) Stat PTT Partial Thromboplastin Nolan Stat Prothrombin Time INR Stat Type and Screen Stat 04/14/25 10:16 CT angio Abd/Pel GI Bleed Stat Blood Culture Stat 04/14/25 10:53 Urine Microscopic Stat 04/14/25 12:02 Procalcitonin Stat 04/14/25 12:09 Urine Culture Stat 04/14/25 12:17 C Diff [Clostridium Difficile Tox PCR] Stat Sodium Chloride (Normal Saline 0.9%) 2,259 mls @ 753 mls/hr 30 ml/kg infuse over 3 hr (2259 ml) IV NOW ONE Stop: 04/14/25 13:18 Last Admin: 04/14/25 11:13 Dose: 753 mls/hr Ondansetron HCl (Ondansetron 4 Mg/2 Ml Inj) 4 mg IV NOW PRN PRN Reason: Nausea And Vomiting Discontinued Medications Piperacillin Sod/Tazobactam (Sod 4.5 gm/ Sodium Chloride) 100 mls @ 200 mls/hr IV NOW ONE Stop: 04/14/25 10:20 Last Infusion: 04/14/25 11:58 Dose: Infused Metronidazole (Flagyl) 500 mg in 100 mls @ 100 mls/hr IV NOW ONE Stop: 04/14/25 11:18 Last Admin: 04/14/25 12:01 Dose: 100 mls/hr Ondansetron HCl (Ondansetron 4 Mg Odt) 4 mg PO NOW PRN PRN Reason: Nausea And Vomiting Vital Signs Vital signs: Vital Signs - 8 hr 04/14/25 09:42 Temperature 98.1 F Pulse Rate 95 H Respiratory Rate 16 Blood Pressure 156/73 H Pulse Oximetry 98 Oxygen Delivery Method Room Air MDM - GI Bleed Lab Data 04/14/25 09:44 04/14/25 09:44 Labs: Lab Results 04/14/25 04/14/25 Range/Units 09:44 10:50 WBC 19.2 H (4.5-11.0) X10^3/uL RBC 3.60 L (4.5-5.9) X10^6/uL Hgb 10.7 L (13.5-17.5) g/dL Hct 33.3 L (41-53) % MCV 92.5 (80-100) fL MCH 29.8 (26-34) PG MCHC 32.3 (30-36) % RDW 17.2 H (11.6-14.8) % Plt Count 111 L (150-400) X10^3/uL Neut % (Auto) Not Reportable Lymph % (Auto) Not Reportable [place] % (Auto) Not Reportable Eos % (Auto) Not Reportable Baso % (Auto) Not Reportable Lymph # (Auto) Not Reportable [place] # (Auto) Not Reportable Baso # (Auto) Not Reportable Total Counted 100 Seg Neutrophils % 59.0 (38-70) % Band Neutrophils % 1.0 L (3-7) % Lymphocytes % (Manual) 1.0 L (25-45) % Atypical Lymphs % 4.0 H ( - 0) % Monocytes % (Manual) 35.0 H (2-11) % Neutrophils # (Manual) 14839 H (9420-0895) /uL RBC Morphology Normal morphology PT 14.0 H (9.4-12.5) SECONDS INR 1.2 (0.9-1.3) APTT 32 (25.1-36.5) SECONDS Sodium 140 (137-145) mmol/L Potassium 4.0 (3.4-5.1) mmol/L Chloride 106 (98-107) mmol/L Carbon Dioxide 22 (22-32) mmol/L BUN 24 H (9-20) mg/dL Creatinine 1.28 H (0.66-1.25) mg/dL Estimated GFR 55 L (>60) mL/min BUN/Creatinine Ratio 18.8 (6-22) Glucose 152 H (70-99) mg/dL Lactate 1.3 (0.7-2.1) mmol/L Calcium 8.7 (8.4-10.2) mg/dL Total Bilirubin 0.8 (0.2-1.3) mg/dL AST 28 (17-59) IU/L ALT 17 (<50) IU/L Alkaline Phosphatase 72 (38-126) U/L Total Protein 7.5 (6.3-8.2) g/dL Albumin 4.2 (3.5-5.0) g/dL Globulin 3.3 (1.7-4.1) g/dL Albumin/Globulin Ratio 1.3 (1.0-2.8) Urine RBC 5-10/hpf H (0-5/HPF) Urine WBC 0-1/hpf (0-5/HPF) Ur Squamous Epith Cells None seen (0-5/HPF) Amorphous Sediment 1+ Urine Bacteria None seen (None) Urine Mucus 1+ H (Negative) Ur Culture Indicated? Cult not indicated Vol Urine Centrifuged 10ml (spun) Blood Type B Positive Antibody Screen Negative Urine Dip Bedside Urine Glucose Negative Bedside Urine Bilirubin - Negative Bedside Urine Ketone - Negative Urine Specific [place] 1.015 Bedside Urine Occult Blood + Bedside Urine pH 6.0 Bedside Urine Protein + 30 Bedside Urine Urobilinogen - Negative Bedside Urine Nitrite - Negative Bedside Urine Leukocytes - Negative Esterase MDM Narrative Medical decision making narrative: Labs show white count of 19 hemoglobin of 10 platelets of 111. Patient has been thrombocytopenic slightly lower white count is definitely increased from March. Patient has more predominance of monocytes and atypicals but does have 11,520 manual neutrophils. INR PTT are appropriate, creatinine appears at baseline at 1.28 with a BUN 24 electrolytes are appropriate glucose is 152 lactate 1.3 LFTs are negative. Procalcitonin CTA abdomen and pelvis GI protocol, interval partial right colectomy, distal segmental colitis/proctitis involving sigmoid and rectum. No acute GI bleed, lumbar degenerative changes canal stenosis. Cholelithiasis. Urine, point of care shows blood, no nitrates or leukocytes, urine microscopy 10 red cells 1 white cell 1+ mucus no squamous no bacteria. Spoke with Dr. Salgado [id number] general surgery, he is aware of the patient it would ask Zosyn and Flagyl coverage and CT GI abdomen pelvis GI protocol. Dr. Perry is in the office but if unable to see the patient he can see them. Spoke with Dr. Perry, general surgery at 12:18 p.m.. Happy to follow along does ask if we can send a C diff although he he describes some up small amounts of diarrhea. Dr. Chinchilla @ [phone] accepts for observation for Davison. Patient received fluids, antibiotics. Concern for sepsis patient's white count is 19 rate is in the 90s. Does not to have any obvious CHF history on initial evaluation Discharge Plan Departure Patient Disposition: Admitted as Observation Clinical Impression: Proctocolitis, Status post left hemicolectomy, GI (gastrointestinal bleed)
[2025-04-14 10:38] LABS: Lactate (Lactic Acid) 1.3 mmol/L (0.7-2.1)
[2025-04-14] MEDS: PIPERACILLIN/TAZO 4.5 GM in SODIUM CHLORIDE 0.9% 100 ML IV (11:13)
[2025-04-14] MEDS: SODIUM CHLORIDE 0.9% 2,259 ML 753 ML IV (11:13)
[2025-04-14 11:35] LABS: Culture Indicated Urine Cult Not Indicated
[2025-04-14] MEDS: metroNIDAZOLE 500 MG/100 ML PIGGYBACK 100 MG IV ×2 (12:01→20:44)
[2025-04-14 12:40] LABS: Procalcitonin 0.119 ng/mL (<0.5)
--- NOTE | 2025-04-14 14:17 | PM.HP.IH.1 ---
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 Per ER note he presents today with complaint of altered mental status at as well as bloody/watery stools from the rectum. Patient's states he was more disoriented last night and he has improved currently. No fevers. No chest pain or shortness of breath. No new nausea or vomiting. He notes little bit of hematuria some difficulty with urination and frequency starting his stream recently. He also notes he has has a little bit of rectal bleeding which he describes as spotting. He states has been going on for a couple days. He notes little bit of abdominal discomfort but describes it as mild. No other new changes. Patient notes he was on oral antibiotics post surgically for an infection in his skin but states that is improved. Dr. Perry is his general surgeon. Majority of history obtained from ER physician note as patient reported feeling tired and had difficulty answering questions on my initial evaluation. ER evaluation notable for WBC 19.2, hemoglobin 10.7, platelets 111, creatinine 1.28, GFR 55, glucose 152. UA with small occult blood and protein, negative for nitrite or leuk esterase. CTA A/P demonstrated interval partial right colectomy, distal segmental colitis/proctitis involving the sigmoid colon and rectum, no acute GI bleed, lumbar degenerative change with canal stenosis, cholelithiasis. Surgery consulted from the ER, initially recommended Zosyn and Flagyl coverage, though there is some suspicion for C diff infection. Patient admitted for observation due to meeting sepsis criteria, possible C diff infection. [facility] Medical History Right bundle branch block Peripheral neuropathy Monoclonal gammopathy Atherosclerosis of aorta Paraganglioma Lower urinary tract symptoms (LUTS) Seasonal allergies Mumps Measles Chicken pox Benign prostatic hyperplasia Esophageal reflux (07/07/03) Hypogonadism in male (05/31/17) Lung nodule (06/12/16) Mixed hyperlipidemia (06/03/15) Hypertension (02/23/11) Surgical History History of lung surgery (~2011) Social History marital status: number of children: 1 household members: spouse lives independently: Yes caregiver/support person: No housing: house pets and animals: No education level: college occupational status: other Previous occupational history: [employer] travel history: recurrent leisure activities: other Tobacco: How many years used: 30 Smokeless tobacco user: other quit status: quit date established second hand exposure: No alcohol intake: current substance use type: does not use Meds Home Medications and Allergies Home Medications ?Medication ?Instructions ?Recorded ?Confirmed ?Type fluticasone propionate 50 1 spray intranasal DAILY 06/04/19 04/14/25 History mcg/actuation nasal spray,suspension multivitamin (Multiple Vitamins 1 tab PO QDAY ##0 06/10/23 04/14/25 History tablet) Disabled Parking #1 ea 05/05/24 04/14/25 Rx alpha lipoic acid 1 cap PO DAILY 05/05/24 04/14/25 History rosuvastatin 5 mg tablet 5 mg PO DAILY #90 tabs 05/05/24 04/14/25 Rx acetaminophen 325 mg tablet 325 mg PO ONCE PRN pain 03/01/25 04/14/25 History (Tylenol) propranolol 20 mg tablet 10 mg PO DAILY 03/10/25 04/14/25 History Allergies Allergy/AdvReac Type Severity Reaction Status Date / Time No Known Drug Allergies Allergy Verified 04/14/25 09:42 Exam Vital Signs (past 8 hours): - 04/14/25 09:39 04/14/25 09:39 04/14/25 09:42 Temperature 98.1 F Pulse Rate 92 H 95 H Respiratory Rate 25 H 16 Blood Pressure 156/73 H 156/73 H Pulse Oximetry 100 98 Oxygen Delivery Method Room Air 04/14/25 10:00 04/14/25 10:00 04/14/25 10:32 Temperature Pulse Rate 78 97 H Respiratory Rate 21 25 H Blood Pressure 128/60 Pulse Oximetry 99 98 Oxygen Delivery Method 04/14/25 10:33 04/14/25 10:33 04/14/25 11:00 Temperature Pulse Rate 92 H 86 Respiratory Rate 19 21 Blood Pressure 159/70 H Pulse Oximetry 99 99 Oxygen Delivery Method 04/14/25 11:00 04/14/25 11:30 04/14/25 11:30 Temperature Pulse Rate 85 Respiratory Rate 23 Blood Pressure 140/73 145/66 H Pulse Oximetry 99 Oxygen Delivery Method 04/14/25 12:00 04/14/25 12:24 04/14/25 12:24 Temperature Pulse Rate 83 91 H Respiratory Rate 25 H 27 H Blood Pressure 138/67 Pulse Oximetry 98 98 Oxygen Delivery Method 04/14/25 12:30 04/14/25 12:30 04/14/25 13:00 Temperature Pulse Rate 84 80 Respiratory Rate 16 17 Blood Pressure 127/62 Pulse Oximetry 99 100 Oxygen Delivery Method 04/14/25 13:00 04/14/25 13:30 04/14/25 13:30 Temperature Pulse Rate 78 Respiratory Rate 17 Blood Pressure 129/62 133/58 L Pulse Oximetry 98 Oxygen Delivery Method Room Air 04/14/25 14:00 04/14/25 14:00 Temperature Pulse Rate 77 Respiratory Rate 18 Blood Pressure 123/59 L Pulse Oximetry 99 Oxygen Delivery Method Oxygen Delivery Method Room Air Narrative Exam Narrative: General: Pleasant, NAD HEENT: NC/AT, EOMI, moist membranes CV: RRR, normal S1-S2, no m/g/r Resp: CTAB, comfortable WOB Abd: Soft, NTND, +BS, laparoscopic incisions well healed without sign of infection Ext: No edema Skin: No rash or lesions noted Neuro: A&O x3, moves all extremities, no focal deficits Objective Labs 04/14/25 09:44 04/14/25 09:44 Labs: Laboratory Results - last 24 hr 04/14/25 04/14/25 09:44 10:50 WBC 19.2 H RBC 3.60 L Hgb 10.7 L Hct 33.3 L MCV 92.5 MCH 29.8 MCHC 32.3 RDW 17.2 H Plt Count 111 L Neut % (Auto) Not Reportable Lymph % (Auto) Not Reportable [place] % (Auto) Not Reportable Eos % (Auto) Not Reportable Baso % (Auto) Not Reportable Lymph # (Auto) Not Reportable [place] # (Auto) Not Reportable Baso # (Auto) Not Reportable Total Counted 100 Seg Neutrophils % 59.0 Band Neutrophils % 1.0 L Lymphocytes % (Manual) 1.0 L Atypical Lymphs % 4.0 H Monocytes % (Manual) 35.0 H Neutrophils # (Manual) 74469 H RBC Morphology Normal morphology PT 14.0 H INR 1.2 APTT 32 Sodium 140 Potassium 4.0 Chloride 106 Carbon Dioxide 22 BUN 24 H Creatinine 1.28 H Estimated GFR 55 L BUN/Creatinine Ratio 18.8 Glucose 152 H Lactate 1.3 Calcium 8.7 Total Bilirubin 0.8 AST 28 ALT 17 Alkaline Phosphatase 72 Total Protein 7.5 Albumin 4.2 Globulin 3.3 Albumin/Globulin Ratio 1.3 Procalcitonin 0.119 Urine RBC 5-10/hpf H Urine WBC 0-1/hpf Ur Squamous Epith Cells None seen Amorphous Sediment 1+ Urine Bacteria None seen Urine Mucus 1+ H Ur Culture Indicated? Cult not indicated Vol Urine Centrifuged 10ml (spun) Blood Type B Positive Antibody Screen Negative Assessment & Plan Assessment and plan (1) Proctocolitis: Status: Acute (2) Leukocytosis: Qualifiers: Leukocytosis type: other Qualified Code(s): D72.828 - Other elevated white blood cell count Status: Acute (3) GI (gastrointestinal bleed): Qualifiers: GI bleed type/associated pathology: anorectal hemorrhage Qualified Code(s): K62.5 - Hemorrhage of anus and rectum Status: Acute (4) Status post left hemicolectomy: Status: Acute (5) Hypertension: Qualifiers: Hypertension type: essential hypertension Qualified Code(s): I10 - Essential (primary) hypertension Status: Chronic (6) Paraganglioma: Status: Chronic (7) Mixed hyperlipidemia: Status: Chronic (8) Monoclonal gammopathy: Status: Chronic (9) Anemia: Qualifiers: Anemia type: iron deficiency Iron deficiency anemia type: chronic blood loss Qualified Code(s): D50.0 - Iron deficiency anemia secondary to blood loss (chronic) Status: Acute (10) Thrombocytopenia: Status: Acute (11) CKD (chronic kidney disease) stage 3, GFR 30-59 ml/min: Qualifiers: Chronic kidney disease stage 3 subtype: stage 3a (GFR 45-59) Qualified Code(s): N18.31 - Chronic kidney disease, stage 3a Status: Acute Assessment & Plan narrative: #proctocolitis #leukocytosis #GI bleed #s/p hemicolectomy 1-2 day period of AMS/metabolic encephalopathy prior to presentation. ER workup notable for leukocytosis with neutrophilic predominance. CTA A/P demonstrates interval partial right colectomy, distal segmental colitis/proctitis involving sigmoid and rectum. No acute GI bleed, lumbar degenerative canal stenosis, cholelithiasis. Surgery consulted from the ER, initially recommended Zosyn and Flagyl coverage, though there is some suspicion for C diff infection. -Dr. Perry consulting/following, appreciate recs -cefepime 2g IV q8h (04/14- ) + metronidazole 500mg IV q8h (04/14- ) -c diff testing #hypertension #paraganglioma -continue propranolol #hyperlipidemia -continue statin #monoclonal gammopathy #anemia #thrombocytopenia Chronic, stable. Followed by heme-onc in [place]. -monitor #ckd 3a -mIVF -avoid nephrotoxic meds Dispo: Observation Diet: Regular GI ppx: PPI DVT ppx: Lovenox Code: FULL PCP: Laney MDM: Annette (, ) Time-Based Coding :: 45 minutes spent with patient and on the chart (including review of chart, obtaining history, exam, reviewing outside data, placing orders, documenting exam and treatment plan, and counseling patient) on [DATE]. [employer] Document charge(s): Yes Charge Codes Initial inpatient/observation care: [id number]
--- NOTE | 2025-04-14 15:44 | PC.NURSE ---
Pt to room 221 via w/c from ER. Able to transfer to bed. Denies pain, nausea, or shortness of breath. Oriented to room, call light, bed controls, and tv controls. Awaiting orders. Pt agrees to call for assistance as needed and to not get up without help.
[2025-04-14] MEDS: CEFEPIME 2 GM in SODIUM CHLORIDE 0.9% 100 ML IV (18:15)
[2025-04-14] MEDS: SODIUM CHLORIDE 0.9% 1,000 ML 100 ML IV (18:17)
--- NOTE | 2025-04-14 19:09 | P.CONS_ITS ---
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 He went home on postoperative day 2 and was recovering uneventfully. His midline wound had a small area of erythema that was not improving so we gave him a round of po Keflex and this cleared up nicely. He presents to the emergency room with watery diarrhea and a CT scan demonstrating colitis. Clinical picture consistent with cdiff colitis. Meds Home Medications and Allergies Home Medications ?Medication ?Instructions ?Recorded ?Confirmed ?Type fluticasone propionate 50 1 spray intranasal DAILY 04/14/25 History mcg/actuation nasal spray,suspension multivitamin (Multiple Vitamins 1 tab PO QDAY ##0 /01/2504/14/25 History tablet) Disabled Parking #1 ea 05/05/24 04/14/25 Rx alpha lipoic acid 1 cap PO DAILY 05/05/2404/05 History rosuvastatin 5 mg tablet 5 mg PO DAILY #90 tabs 05/0504/14/25 Rx acetaminophen 325 mg tablet 325 mg PO ONCE PRN pain 04/14/25 History (Tylenol) propranolol 20 mg tablet 10 mg PO DAILY 03/10/2504/05 History Allergies Allergy/AdvReac Type Severity Reaction Status Date / Time No Known Drug Allergies Allergy Verified 04/14/25 09:42 Exam Vital Signs (past 8 hours): - 04/14/25 11:30 04/14/25 11:30 04/14/25 12:00 Temperature Pulse Rate 85 83 Respiratory Rate 23 25 H Blood Pressure 145/66 H Pulse Oximetry 99 98 Oxygen Delivery Method 04/14/25 12:24 04/14/25 12:24 04/14/25 12:30 Temperature Pulse Rate 91 H 84 Respiratory Rate 27 H 16 Blood Pressure 138/67 Pulse Oximetry 98 99 Oxygen Delivery Method 04/14/25 12:30 04/14/25 13:00 04/14/25 13:00 Temperature Pulse Rate 80 Respiratory Rate 17 Blood Pressure 127/62 129/62 Pulse Oximetry 100 Oxygen Delivery Method 04/14/25 13:30 04/14/25 13:30 04/14/25 14:00 Temperature Pulse Rate 78 77 Respiratory Rate 17 18 Blood Pressure 133/58 L Pulse Oximetry 98 99 Oxygen Delivery Method Room Air 04/14/25 14:00 04/14/25 14:29 04/14/25 14:29 Temperature Pulse Rate 88 Respiratory Rate 20 Blood Pressure 123/59 L 131/61 Pulse Oximetry 97 Oxygen Delivery Method Room Air 04/14/25 14:30 04/14/25 14:30 04/14/25 15:41 Temperature 98.6 F Pulse Rate 81 82 Respiratory Rate 19 18 Blood Pressure 131/60 118/57 L Pulse Oximetry 98 97 Oxygen Delivery Method Room Air 04/14/25 18:00 Temperature Pulse Rate 68 Respiratory Rate 16 Blood Pressure 117/44 L Pulse Oximetry 98 Oxygen Delivery Method Oxygen Delivery Method Room Air Const General: comfortable Orientation: alert and oriented x3 Resp Effort & Inspection: normal respiratory effort and able to speak in complete sentences Cardio Rate: regular rate GI Other: ABD: soft, ND, non-peritoneal exam. Incisions CDI. The area of erythema at his lower midline wound is markedly improved. Extrem General: no pedal edema and no calf tenderness Objective Labs 04/14/25 09:44 04/14/25 09:44 Labs: Laboratory Results - last 24 hr 04/14/25 04/14/25 09:44 10:50 WBC 19.2 H RBC 3.60 L Hgb 10.7 L Hct 33.3 L MCV 92.5 MCH 29.8 MCHC 32.3 RDW 17.2 H Plt Count 111 L Neut % (Auto) Not Reportable Lymph % (Auto) Not Reportable [place] % (Auto) Not Reportable Eos % (Auto) Not Reportable Baso % (Auto) Not Reportable Lymph # (Auto) Not Reportable [place] # (Auto) Not Reportable Baso # (Auto) Not Reportable Total Counted 100 Seg Neutrophils % 59.0 Band Neutrophils % 1.0 L Lymphocytes % (Manual) 1.0 L Atypical Lymphs % 4.0 H Monocytes % (Manual) 35.0 H Neutrophils # (Manual) 02683 H RBC Morphology Normal morphology PT 14.0 H INR 1.2 APTT 32 Sodium 140 Potassium 4.0 Chloride 106 Carbon Dioxide 22 BUN 24 H Creatinine 1.28 H Estimated GFR 55 L BUN/Creatinine Ratio 18.8 Glucose 152 H Lactate 1.3 Calcium 8.7 Total Bilirubin 0.8 AST 28 ALT 17 Alkaline Phosphatase 72 Total Protein 7.5 Albumin 4.2 Globulin 3.3 Albumin/Globulin Ratio 1.3 Procalcitonin 0.119 Urine RBC 5-10/hpf H Urine WBC 0-1/hpf Ur Squamous Epith Cells None seen Amorphous Sediment 1+ Urine Bacteria None seen Urine Mucus 1+ H Ur Culture Indicated? Cult not indicated Vol Urine Centrifuged 10ml (spun) Blood Type B Positive Antibody Screen [facility] Medical History Right bundle branch block Peripheral neuropathy Monoclonal gammopathy Atherosclerosis of aorta Paraganglioma Lower urinary tract symptoms (LUTS) Seasonal allergies Mumps Measles Chicken pox Benign prostatic hyperplasia Esophageal reflux (07/07/03) Hypogonadism in male (05/31/17) Lung nodule (06/12/16) Mixed hyperlipidemia (06/03/15) Hypertension (02/23/11) Surgical History History of lung surgery (~2011) Social History marital status: number of children: 1 household members: spouse lives independently: Yes caregiver/support person: No housing: house pets and animals: No education level: college occupational status: other Previous occupational history: [employer] travel history: recurrent leisure activities: other Tobacco & Substance Use Smoking Status: Former smoker Tobacco: How many years used: 30 Smokeless tobacco user: other quit status: quit date established second hand exposure: No alcohol intake: current substance use type: does not use Assessment & Plan Assessment and plan (1) Proctocolitis: Status: Acute Plan Colitis after antibiotics consistent with cdiff colitis. Cdiff testing pending. Will follow. Appreciate hospitalist team. Time-Based Coding :: [TOTAL MINUTES] spent with patient and on the chart (including review of chart, obtaining history, exam, reviewing outside data, placing orders, documenting exam and treatment plan, and counseling patient) on [DATE]. PROFEE Charge Codes Inpatient or Observation consultation: [id number]
[2025-04-14 20:49] LABS: Clostridium Difficile Tox PCR Positive for C. diff (Negative)
[2025-04-15] MEDS: metroNIDAZOLE 500 MG/100 ML PIGGYBACK 100 MG IV ×3 (03:16→21:12)
[2025-04-15] MEDS: SODIUM CHLORIDE 0.9% 1,000 ML 100 ML IV ×2 (03:16→21:13)
[2025-04-15 04:00] VITALS: BP 128/54; PULSE 73; RESP 16; TEMP 36.7; O2SAT 100
[2025-04-15] MEDS: PANTOPRAZOLE DR 20 MG TABLET PO (05:49)
[2025-04-15] MEDS: CEFEPIME 2 GM in SODIUM CHLORIDE 0.9% 100 ML IV (05:50)
[2025-04-15 08:34] VITALS: BP 128/64; RESP 18; TEMP 36.7; O2SAT 94
[2025-04-15 09:03] LABS: Hematocrit 25.4 % (41-53); Hemoglobin 8.4 g/dL (13.5-17.5); Mean Corpuscular HGB Conc 33.0 % (30-36); Mean Corpuscular Hemoglobin 30.4 PG (26-34); Mean Corpuscular Volume 92.1 fL (80-100); Platelet Count 78 X10^3/uL (150-400)
[2025-04-15 09:32] LABS: Blood Urea Nitrogen 20 mg/dL (9-20); Calcium 7.6 mg/dL (8.4-10.2); Carbon Dioxide 21 mmol/L (22-32); Estimated Glomerular Filt Rate > 60 mL/min (>60); Glucose 98 mg/dL (70-99); HEMOLYSIS < 15 (0-50); Sodium 136 mmol/L (137-145)
[2025-04-15 09:35] LABS: Add Manual Diff / Slide Review NO; Lymphocytes Absolute Auto 700 /uL (1100-4500)
--- NOTE | 2025-04-15 09:43 | P.PN_ITS ---
Subjective Subjective Date Patient Seen: 04/15/25 Interval history: Patient resting comfortably in bed. Much more alert and interactive today compared to our initial conversation in the ER yesterday afternoon. States ?I'vegot the shits.? C diff PCR positive, white count trending down nicely this morning. Exam Narrative Exam Narrative: General: Pleasant, NAD HEENT: NC/AT, EOMI, moist membranes CV: RRR, normal S1-S2, no m/g/r Resp: CTAB, comfortable WOB Abd: Soft, NTND, +BS, laparoscopic incisions well healed without sign of infection Ext: No edema Skin: No rash or lesions noted Neuro: A&O x3, moves all extremities, no focal deficits Objective Labs 04/15/25 08:55 04/15/25 08:55 Labs: Laboratory Results - last 24 hr 04/14/25 04/14/25 04/14/25 09:44 10:50 19:42 WBC 19.2 H RBC 3.60 L Hgb 10.7 L Hct 33.3 L MCV 92.5 MCH 29.8 MCHC 32.3 RDW 17.2 H Plt Count 111 L Neut % (Auto) Not Reportable Lymph % (Auto) Not Reportable [place] % (Auto) Not Reportable Eos % (Auto) Not Reportable Baso % (Auto) Not Reportable Neut # (Auto) Lymph # (Auto) Not Reportable [place] # (Auto) Not Reportable Eos # (Auto) Baso # (Auto) Not Reportable Total Counted 100 Seg Neutrophils % 59.0 Band Neutrophils % 1.0 L Lymphocytes % (Manual) 1.0 L Atypical Lymphs % 4.0 H Monocytes % (Manual) 35.0 H Eosinophils % (Manual) Basophils % (Manual) Metamyelocytes % Myelocytes % Promyelocytes % Blast Cells % Neutrophils # (Manual) 51786 H Nucleated RBCs Differential Comment Hypersegmented Neuts Reactive Lymphocytes Plasma Cells Smudge Cells Other Cell Type Toxic Granulation Toxic Vacuolation Dohle Bodies Guero Rods WBC Morphology Comment Platelet Estimate Clumped Platelets Plt Morphology Comment RBC Morphology Normal morphology Dimorphic RBCs Polychromasia Hypochromasia Poikilocytosis Basophilic Stippling Anisocytosis Microcytosis Macrocytosis Spherocytes Pappenheimer Bodies Sickle Cells Target Cells Tear Drop Cells Ovalocytes Stomatocytes Helmet Cells [place] Bodies [place] Rings [place] Cells Acanthocytes (Spur) Rouleaux Schistocytes PT 14.0 H INR 1.2 APTT 32 Sodium 140 Potassium 4.0 Chloride 106 Carbon Dioxide 22 BUN 24 H Creatinine 1.28 H Estimated GFR 55 L BUN/Creatinine Ratio 18.8 Glucose 152 H Lactate 1.3 Calcium 8.7 Total Bilirubin 0.8 AST 28 ALT 17 Alkaline Phosphatase 72 Total Protein 7.5 Albumin 4.2 Globulin 3.3 Albumin/Globulin Ratio 1.3 Procalcitonin 0.119 Urine RBC 5-10/hpf H Urine WBC 0-1/hpf Ur Squamous Epith Cells None seen Amorphous Sediment 1+ Urine Bacteria None seen Urine Mucus 1+ H Ur Culture Indicated? Cult not indicated Vol Urine Centrifuged 10ml (spun) C. difficile Tox (PCR) Positive for c. diff H Blood Type B Positive Antibody Screen Negative 04/15/25 08:55 WBC 14.1 H RBC 2.76 L Hgb 8.4 L Hct 25.4 L MCV 92.1 MCH 30.4 MCHC 33.0 RDW 17.6 H Plt Count 78 L Neut % (Auto) 54.7 Lymph % (Auto) 4.9 L [place] % (Auto) 39.9 H Eos % (Auto) 0.3 L Baso % (Auto) 0.2 Neut # (Auto) 7700 H Lymph # (Auto) 700 L [place] # (Auto) 5600 H Eos # (Auto) 0 Baso # (Auto) 0 Total Counted Cancelled Seg Neutrophils % Cancelled Band Neutrophils % Cancelled Lymphocytes % (Manual) Cancelled Atypical Lymphs % Cancelled Monocytes % (Manual) Cancelled Eosinophils % (Manual) Cancelled Basophils % (Manual) Cancelled Metamyelocytes % Cancelled Myelocytes % Cancelled Promyelocytes % Cancelled Blast Cells % Cancelled Neutrophils # (Manual) Cancelled Nucleated RBCs Cancelled Differential Comment Cancelled Hypersegmented Neuts Cancelled Reactive Lymphocytes Cancelled Plasma Cells Cancelled Smudge Cells Cancelled Other Cell Type Cancelled Toxic Granulation Cancelled Toxic Vacuolation Cancelled Dohle Bodies Cancelled [place] Rods Cancelled WBC Morphology Comment Cancelled Platelet Estimate Cancelled Clumped Platelets Cancelled Plt Morphology Comment Cancelled RBC Morphology Cancelled Dimorphic RBCs Cancelled Polychromasia Cancelled Hypochromasia Cancelled Poikilocytosis Cancelled Basophilic Stippling Cancelled Anisocytosis Cancelled Microcytosis Cancelled Macrocytosis Cancelled Spherocytes Cancelled Pappenheimer Bodies Cancelled Sickle Cells Cancelled Target Cells Cancelled Tear Drop Cells Cancelled Ovalocytes Cancelled Stomatocytes Cancelled Helmet Cells Cancelled [place] Bodies Cancelled [place] Rings Cancelled [place] Cells Cancelled Acanthocytes (Spur) Cancelled Rouleaux Cancelled Schistocytes Cancelled PT INR APTT Sodium 136 L Potassium Chloride Carbon Dioxide 21 L BUN 20 Creatinine 1.10 Estimated GFR > 60 BUN/Creatinine Ratio 18.2 Glucose 98 Lactate Calcium 7.6 L Total Bilirubin AST ALT Alkaline Phosphatase Total Protein Albumin Globulin Albumin/Globulin Ratio Procalcitonin Urine RBC Urine WBC Ur Squamous Epith Cells Amorphous Sediment Urine Bacteria Urine Mucus Ur Culture Indicated? Vol Urine Centrifuged C. difficile Tox (PCR) Blood Type Antibody Screen PFSH Medical History Right bundle branch block Peripheral neuropathy Monoclonal gammopathy Atherosclerosis of aorta Paraganglioma Lower urinary tract symptoms (LUTS) Seasonal allergies Mumps Measles Chicken pox Benign prostatic hyperplasia Esophageal reflux (07/07/03) Hypogonadism in male (05/31/17) Lung nodule (06/12/16) Mixed hyperlipidemia (06/03/15) Hypertension (02/23/11) Surgical History History of lung surgery (~2011) Social History marital status: number of children: 1 household members: spouse lives independently: Yes caregiver/support person: No housing: house pets and animals: No education level: college occupational status: other Previous occupational history: [employer] travel history: recurrent leisure activities: other Smoking Status: Former smoker Tobacco: How many years used: 30 Smokeless tobacco user: other quit status: quit date established second hand exposure: No alcohol intake: current substance use type: does not use Assessment & Plan Assessment and plan (1) C. difficile colitis: Status: Acute (2) Leukocytosis: Qualifiers: Leukocytosis type: other Qualified Code(s): D72.828 - Other elevated white blood cell count Status: Acute (3) GI (gastrointestinal bleed): Qualifiers: GI bleed type/associated pathology: anorectal hemorrhage Qualified Code(s): K62.5 - Hemorrhage of anus and rectum Status: Acute (4) Status post left hemicolectomy: Status: Acute (5) Hypertension: Qualifiers: Hypertension type: essential hypertension Qualified Code(s): I10 - Essential (primary) hypertension Status: Chronic (6) Paraganglioma: Status: Chronic (7) Mixed hyperlipidemia: Status: Chronic (8) Monoclonal gammopathy: Status: Chronic (9) Anemia: Qualifiers: Anemia type: iron deficiency Iron deficiency anemia type: chronic blood loss Qualified Code(s): D50.0 - Iron deficiency anemia secondary to blood loss (chronic) Status: Acute (10) Thrombocytopenia: Status: Acute Assessment & Plan narrative: 84-year-old male with monoclonal gammopathy, BPH, dyslipidemia, history of adenocarcinoma of the ileocecal valve s/p laparoscopic right hemicolectomy on 03/10/2025 admitted for proctocolitis with altered mental status on 04/14/2025. #c diff colitis #leukocytosis #GI bleed #s/p hemicolectomy 1-2 day period of AMS/metabolic encephalopathy prior to presentation. ER workup notable for leukocytosis with neutrophilic predominance. CTA A/P demonstrates interval partial right colectomy, distal segmental colitis/proctitis involving sigmoid and rectum. No acute GI bleed, lumbar degenerative canal stenosis, cholelithiasis. Surgery consulted from the ER, initially recommended Zosyn and Flagyl coverage. C diff PCR positive with toxin identification pending. -Dr. Perry consulting/following, appreciate recs -vancomycin 250 mg p.o. q.i.d. times 10 days -metronidazole 500mg IV q8h (04/14- ) -s/p cefepime 2g IV q8h (04/14-), pip-tazo in ER (04/14) #hypertension #paraganglioma -propranolol #hyperlipidemia -statin #monoclonal gammopathy #anemia #thrombocytopenia Chronic, stable. Followed by heme-onc in [place]. -monitor #decreased renal function Resolved, possibly 2/2 dehydration -mIVF -avoid nephrotoxic meds Dispo: Home in 1-2 days Diet: Regular GI ppx: PPI DVT ppx: Lovenox Code: FULL PCP: Laney MDM: Annette (, ) Time-Based Coding :: 30 minutes spent with patient and on the chart (including review of chart, obtaining history, exam, reviewing outside data, placing orders, documenting exam and treatment plan, and counseling patient) on 04/15/2025. 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
[2025-04-15 09:44] LABS: Chloride 110 mmol/L (98-107); Potassium 3.7 mmol/L (3.4-5.1)
[2025-04-15] MEDS: ENOXAPARIN 40 MG/0.4 ML SYRINGE SUBCUT (10:08)
[2025-04-15] MEDS: VANCOMYCIN 125 MG CAPSULE PO ×3 (10:09→21:12)
[2025-04-15] MEDS: PROPRANOLOL 10 MG TABLET PO (10:09)
[2025-04-15] MEDS: ACETAMINOPHEN 325 MG TABLET 650 MG PO (10:09)
[2025-04-15] MEDS: ATORVASTATIN 20 MG TABLET 10 MG PO (10:10)
--- NOTE | 2025-04-15 10:38 | P.PN_ITS ---
Subjective Subjective Date Patient Seen: 04/15/25 Time Patient Seen: 10:38 Interval history: No new c/o Tolerating diet Exam Vital Signs (past 8 hours): - 04/15/25 04:00 04/15/25 08:34 Temperature 98.0 F 98.1 F Pulse Rate 73 Respiratory Rate 16 18 Blood Pressure 128/54 L 128/64 Pulse Oximetry 100 94 Oxygen Flow Rate 0 Oxygen Delivery Method Room Air Oxygen Flow Rate 0 Const General: comfortable Orientation: alert Resp Effort & Inspection: normal respiratory effort and able to speak in complete sentences Cardio Rate: regular rate GI Palpation: soft (non-peritoneal) Extrem General: no pedal edema and no calf tenderness Objective Labs 04/15/25 08:55 04/15/25 08:55 Labs: Laboratory Results - last 24 hr 04/14/25 04/14/25 04/14/25 09:44 10:50 19:42 WBC RBC Hgb Hct MCV MCH MCHC RDW Plt Count Neut % (Auto) Lymph % (Auto) [place] % (Auto) Eos % (Auto) Baso % (Auto) Neut # (Auto) Lymph # (Auto) [place] # (Auto) Eos # (Auto) Baso # (Auto) Total Counted Seg Neutrophils % Band Neutrophils % Lymphocytes % (Manual) Atypical Lymphs % Monocytes % (Manual) Eosinophils % (Manual) Basophils % (Manual) Metamyelocytes % Myelocytes % Promyelocytes % Blast Cells % Neutrophils # (Manual) Nucleated RBCs Differential Comment Hypersegmented Neuts Reactive Lymphocytes Plasma Cells Smudge Cells Other Cell Type Toxic Granulation Toxic Vacuolation Dohle Bodies Guero Rods WBC Morphology Comment Platelet Estimate Clumped Platelets Plt Morphology Comment RBC Morphology Dimorphic RBCs Polychromasia Hypochromasia Poikilocytosis Basophilic Stippling Anisocytosis Microcytosis Macrocytosis Spherocytes Pappenheimer Bodies Sickle Cells Target Cells Tear Drop Cells Ovalocytes Stomatocytes Helmet Cells [place] Bodies [place] Rings [place] Cells Acanthocytes (Spur) Rouleaux Schistocytes Sodium Potassium Chloride Carbon Dioxide BUN Creatinine Estimated GFR BUN/Creatinine Ratio Glucose Lactate 1.3 Calcium Procalcitonin 0.119 Urine RBC 5-10/hpf H Urine WBC 0-1/hpf Ur Squamous Epith Cells None seen Amorphous Sediment 1+ Urine Bacteria None seen Urine Mucus 1+ H Ur Culture Indicated? Cult not indicated Vol Urine Centrifuged 10ml (spun) C. difficile Tox (PCR) Positive for c. diff H 04/15/25 08:55 WBC 14.1 H RBC 2.76 L Hgb 8.4 L Hct 25.4 L MCV 92.1 MCH 30.4 MCHC 33.0 RDW 17.6 H Plt Count 78 L Neut % (Auto) 54.7 Lymph % (Auto) 4.9 L [place] % (Auto) 39.9 H Eos % (Auto) 0.3 L Baso % (Auto) 0.2 Neut # (Auto) 7700 H Lymph # (Auto) 700 L [place] # (Auto) 5600 H Eos # (Auto) 0 Baso # (Auto) 0 Total Counted Cancelled Seg Neutrophils % Cancelled Band Neutrophils % Cancelled Lymphocytes % (Manual) Cancelled Atypical Lymphs % Cancelled Monocytes % (Manual) Cancelled Eosinophils % (Manual) Cancelled Basophils % (Manual) Cancelled Metamyelocytes % Cancelled Myelocytes % Cancelled Promyelocytes % Cancelled Blast Cells % Cancelled Neutrophils # (Manual) Cancelled Nucleated RBCs Cancelled Differential Comment Cancelled Hypersegmented Neuts Cancelled Reactive Lymphocytes Cancelled Plasma Cells Cancelled Smudge Cells Cancelled Other Cell Type Cancelled Toxic Granulation Cancelled Toxic Vacuolation Cancelled [place]ohle Bodies Cancelled [place] Rods Cancelled WBC Morphology Comment Cancelled Platelet Estimate Cancelled Clumped Platelets Cancelled Plt Morphology Comment Cancelled RBC Morphology Cancelled Dimorphic RBCs Cancelled Polychromasia Cancelled Hypochromasia Cancelled Poikilocytosis Cancelled Basophilic Stippling Cancelled Anisocytosis Cancelled Microcytosis Cancelled Macrocytosis Cancelled Spherocytes Cancelled Pappenheimer Bodies Cancelled Sickle Cells Cancelled Target Cells Cancelled Tear Drop Cells Cancelled Ovalocytes Cancelled Stomatocytes Cancelled Helmet Cells Cancelled [place] Bodies Cancelled [place] Rings Cancelled [place] Cells Cancelled Acanthocytes (Spur) Cancelled Rouleaux Cancelled Schistocytes Cancelled Sodium 136 L Potassium 3.7 Chloride 110 H Carbon Dioxide 21 L BUN 20 Creatinine 1.10 Estimated GFR > 60 BUN/Creatinine Ratio 18.2 Glucose 98 Lactate Calcium 7.6 L Procalcitonin Urine RBC Urine WBC Ur Squamous Epith Cells Amorphous Sediment Urine Bacteria Urine Mucus Ur Culture Indicated? Vol Urine Centrifuged C. difficile Tox (PCR) [facility] Medical History Right bundle branch block Peripheral neuropathy Monoclonal gammopathy Atherosclerosis of aorta Paraganglioma Lower urinary tract symptoms (LUTS) Seasonal allergies Mumps Measles Chicken pox Benign prostatic hyperplasia Esophageal reflux (07/07/03) Hypogonadism in male (05/31/17) Lung nodule (06/12/16) Mixed hyperlipidemia (06/03/15) Hypertension (02/23/11) Surgical History History of lung surgery (~2011) Social History marital status: number of children: 1 household members: spouse lives independently: Yes caregiver/support person: No housing: house pets and animals: No education level: college occupational status: other Previous occupational history: [employer] travel history: recurrent leisure activities: other Smoking Status: Former smoker Tobacco: How many years used: 30 Smokeless tobacco user: other quit status: quit date established second hand exposure: No alcohol intake: current substance use type: does not use Assessment & Plan Assessment and plan (1) C. difficile colitis: Status: Acute Plan Cdiff colitis - he received 48hours of IV abx coverage for right hemicolectomy, then a week of keflex for wound erythema. IV abx stopped PO Vanc begun Appreciate Dr. Chinchilla Time-Based Coding :: [TOTAL MINUTES] spent with patient and on the chart (including review of chart, obtaining history, exam, reviewing outside data, placing orders, documenting exam and treatment plan, and counseling patient) on [DATE]. Quality VTE Deep Vein Thrombosis/Pulmonary Embolism Present on Admission: No IH PROFEE Preanalytics Team Lead Document charge(s): Yes Charge Codes Subsequent inpatient/observation care: [id number]
[2025-04-15 16:00] VITALS: BP 119/57; PULSE 69; RESP 17; TEMP 36.3; O2SAT 98
--- NOTE | 2025-04-15 16:22 | CM.DANOTE ---
DCP Assessment note pt is a 84yo M admitted with Cdiff. had right hemicolectomy a few weeks ago, too much abx likely led to Cdiff. PCP Amor young following while Laney out of office TECHNICAL PROJECT LEAD reviewed EMR. per previous CM notes, pt lives with spouse and dtr mod indep in [place]. gets assistances with higher ADLs. drives. walker at baseline. able to transfer indep in room with nursing. per provider note was altered mentally in ED but much better today. anticipate home in 1-2 days. TECHNICAL PROJECT LEAD attempted to meet with pt twice in room, in bathroom both times. no obvious needs from chart identified at this time P: anticipate home with family when medically stable. no identified barriers to safe dc home at this time will continue to follow in case any should arise OBED [place] Discharge Planning/Care Management Advanced directive, confirm from FAMILY Start: 04/14/25 15:39 Freq: Q24H Status: Active Protocol: Document 04/14/25 15:39 CM (Rec: 04/14/25 15:40 CM [id number]) Advance Directive, confirm on record Time 15:40 Person contacted Pt Copy received Yes CM Discharge Assessment Start: 04/14/25 14:45 Freq: Status: Active Protocol: Document 04/15/25 16:20 SL (Rec: 04/15/25 16:22 SL [id number]) Discharge Planning Assessment Assigned Discharge OBED Vigil Corporate Planner Provider Laney Insurance Medicare DPOA/Assigned jaswant, spouse Designee Name Contact Information [phone] Advance Directives? Yes Advance Directives No on File History Provided By Patient,Medical Record Prior Living House Arrangements Household Members spouse Independent with ADL Yes 's Is patient alert and Yes oriented? Discharge Plan Home Referrals Initiated None needed Review Status In Process Please Provide Date 04/15/25 Initial DC Assessment Was Performed Next Review Type Continued Stay Review
--- NOTE | 2025-04-15 17:09 | PC.NURSE ---
Addendum entered by Beverley Stack RN 04/15/25 19:05: Patients vancomycin 0ral pill for his cdiff was to be given around 1430. Dose given later as patient was sleeping, he has been up multiple times to have a bm. So patient wanted to sleep for a bit. Original Note: Patient up to the bathroom a few times today, he is voiding well and has had some small bm that have been loose and formed. He denies pain. Given tylenol earlier in the day for complained of a soar neck. Patient is not steady on his feet and is a one person assist with walker to the bathroom. He can be impulsive when he needs to get up. He is alert and oriented x3 with periods of confusion.
[2025-04-15 20:30] VITALS: BP 117/48; PULSE 58; RESP 18; TEMP 36.6; O2SAT 100
[2025-04-16] VITALS: BP 128/48; PULSE 117; RESP 20; TEMP 36.8; O2SAT 97
[2025-04-16] MEDS: VANCOMYCIN 125 MG CAPSULE PO ×3 (01:25→12:54)
[2025-04-16] MEDS: metroNIDAZOLE 500 MG/100 ML PIGGYBACK 100 MG IV (03:58)
[2025-04-16] MEDS: PANTOPRAZOLE DR 20 MG TABLET PO (05:18)
[2025-04-16 05:39] LABS: Blood Urea Nitrogen 18 mg/dL (9-20); Calcium 7.3 mg/dL (8.4-10.2); Carbon Dioxide 18 mmol/L (22-32); Chloride 112 mmol/L (98-107); Estimated Glomerular Filt Rate > 60 mL/min (>60); Glucose 90 mg/dL (70-99); HEMOLYSIS < 15 (0-50); Potassium 3.2 mmol/L (3.4-5.1); Sodium 136 mmol/L (137-145)
[2025-04-16 06:00] VITALS: BP 117/48; PULSE 61; RESP 2
[2025-04-16 06:08] LABS: Hematocrit 23.8 % (41-53); Hemoglobin 7.8 g/dL (13.5-17.5); Mean Corpuscular HGB Conc 33.0 % (30-36); Mean Corpuscular Hemoglobin 30.2 PG (26-34); Mean Corpuscular Volume 91.5 fL (80-100); Platelet Count 70 X10^3/uL (150-400)
[2025-04-16 06:13] LABS: Add Manual Diff / Slide Review YES
[2025-04-16 06:28] LABS: Eosinophils Percent Manual 2.0 % (2-4); Lymphocytes Percent Manual 14.0 % (25-45); Monocytes Percent Manual 30.0 % (2-11); Neutrophils Absolute Manual 3780 /uL (3000-5900); Segmented Neutrophils Percent 54.0 % (38-70); Total Cells Counted 100
[2025-04-16 06:29] LABS: RBC Morphology Normal Morphology
--- NOTE | 2025-04-16 07:12 | P.PN_ITS ---
Subjective Subjective Date Patient Seen: 04/16/25 Time Patient Seen: 07:12 Interval history: Diarrhea improved Tolerating regular diet Exam Vital Signs (past 8 hours): - 04/16/25 00:00 04/16/25 06:00 Temperature 98.3 F Pulse Rate 117 H 61 Respiratory Rate 20 2 L Blood Pressure 128/48 L 117/48 L Pulse Oximetry 97 Oxygen Flow Rate 0 Oxygen Delivery Method Room Air Oxygen Flow Rate 0 GI Palpation: soft (non-peritoneal) Objective Labs 04/16/25 05:14 04/16/25 05:14 Labs: Laboratory Results - last 24 hr 04/15/25 04/16/25 08:55 05:14 WBC 14.1 H 7.0 D RBC 2.76 L 2.60 L Hgb 8.4 L 7.8 L Hct 25.4 L 23.8 L MCV 92.1 91.5 MCH 30.4 30.2 MCHC 33.0 33.0 RDW 17.6 H 17.3 H Plt Count 78 L 70 L Neut % (Auto) 54.7 Not Reportable Lymph % (Auto) 4.9 L Not Reportable Hayes % (Auto) 39.9 H Not Reportable Eos % (Auto) 0.3 L Not Reportable Baso % (Auto) 0.2 Not Reportable Neut # (Auto) 7700 H Lymph # (Auto) 700 L Not Reportable Hayes # (Auto) 5600 H Not Reportable Eos # (Auto) 0 Baso # (Auto) 0 Not Reportable Total Counted Cancelled 100 Seg Neutrophils % Cancelled 54.0 Band Neutrophils % Cancelled Lymphocytes % (Manual) Cancelled 14.0 L D Atypical Lymphs % Cancelled Monocytes % (Manual) Cancelled 30.0 H Eosinophils % (Manual) Cancelled 2.0 Basophils % (Manual) Cancelled Metamyelocytes % Cancelled Myelocytes % Cancelled Promyelocytes % Cancelled Blast Cells % Cancelled Neutrophils # (Manual) Cancelled 3780 Nucleated RBCs Cancelled Differential Comment Cancelled Hypersegmented Neuts Cancelled Reactive Lymphocytes Cancelled Plasma Cells Cancelled Smudge Cells Cancelled Other Cell Type Cancelled Toxic Granulation Cancelled Toxic Vacuolation Cancelled Dohle Bodies Cancelled Guero Rods Cancelled WBC Morphology Comment Cancelled Platelet Estimate Cancelled Clumped Platelets Cancelled Plt Morphology Comment Cancelled RBC Morphology Cancelled Normal morphology Dimorphic RBCs Cancelled Polychromasia Cancelled Hypochromasia Cancelled Poikilocytosis Cancelled Basophilic Stippling Cancelled Anisocytosis Cancelled Microcytosis Cancelled Macrocytosis Cancelled Spherocytes Cancelled Pappenheimer Bodies Cancelled Sickle Cells Cancelled Target Cells Cancelled Tear Drop Cells Cancelled Ovalocytes Cancelled Stomatocytes Cancelled Helmet Cells Cancelled Moreira-Cressey Bodies Cancelled Friedheim Rings Cancelled Anchorage Cells Cancelled Acanthocytes (Spur) Cancelled Rouleaux Cancelled Schistocytes Cancelled Sodium 136 L 136 L Potassium 3.7 3.2 L Chloride 110 H 112 H Carbon Dioxide 21 L 18 L BUN 20 18 Creatinine 1.10 1.02 Estimated GFR > 60 > 60 BUN/Creatinine Ratio 18.2 17.6 Glucose 98 90 Calcium 7.6 L 7.3 L PFSH Medical History Right bundle branch block Peripheral neuropathy Monoclonal gammopathy Atherosclerosis of aorta Paraganglioma Lower urinary tract symptoms (LUTS) Seasonal allergies Mumps Measles Chicken pox Benign prostatic hyperplasia Esophageal reflux (07/07/03) Hypogonadism in male (05/31/17) Lung nodule (06/12/16) Mixed hyperlipidemia (06/03/15) Hypertension (02/23/11) Surgical History History of lung surgery (~2011) Social History marital status: number of children: 1 household members: spouse lives independently: Yes caregiver/support person: No housing: house pets and animals: No education level: college occupational status: other Previous occupational history: [employer] travel history: recurrent leisure activities: other Smoking Status: Former smoker Tobacco: How many years used: 30 Smokeless tobacco user: other quit status: quit date established second hand exposure: No alcohol intake: current substance use type: does not use Assessment & Plan Assessment and plan (1) C. difficile colitis: Status: Acute Plan Symptomatically improved on po Vanc WBC downtrending Appreciate Dr. Chinchilla and hospitalist team Time-Based Coding :: [TOTAL MINUTES] spent with patient and on the chart (including review of chart, obtaining history, exam, reviewing outside data, placing orders, documenting exam and treatment plan, and counseling patient) on [DATE]. Quality VTE Deep Vein Thrombosis/Pulmonary Embolism Present on Admission: No IH PROFEE Remote [employer] Developer Document charge(s): Yes Charge Codes Subsequent inpatient/observation care: 07906
[2025-04-16 07:48] VITALS: BP 109/49; PULSE 60; RESP 18; TEMP 36.3; O2SAT 98
--- NOTE | 2025-04-16 09:38 | CM.DPNOTE ---
DCP Note INSTRUMENT INSPECTOR reviewed EMR per Dr. Chinchilla, pt passing gas without BMs, can dc home today. no CM needs. pt eager to go home. P: pt to dc today and f/u in OP setting as needed no identified barriers to safe dc home at this time. will continue to follow as needed in case any should arise Yaritza Thibodeaux, INSTRUMENT INSPECTOR
[2025-04-16] MEDS: ATORVASTATIN 20 MG TABLET 10 MG PO (09:39)
[2025-04-16] MEDS: PROPRANOLOL 10 MG TABLET PO (09:40)
--- NOTE | 2025-04-16 09:45 | PM.DS.IH.1 ---
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 Per ER note he presents today with complaint of altered mental status at as well as bloody/watery stools from the rectum. Patient's states he was more disoriented last night and he has improved currently. No fevers. No chest pain or shortness of breath. No new nausea or vomiting. He notes little bit of hematuria some difficulty with urination and frequency starting his stream recently. He also notes he has has a little bit of rectal bleeding which he describes as spotting. He states has been going on for a couple days. He notes little bit of abdominal discomfort but describes it as mild. No other new changes. Patient notes he was on oral antibiotics post surgically for an infection in his skin but states that is improved. Dr. Perry is his general surgeon. Majority of history obtained from ER physician note as patient reported feeling tired and had difficulty answering questions on my initial evaluation. ER evaluation notable for WBC 19.2, hemoglobin 10.7, platelets 111, creatinine 1.28, GFR 55, glucose 152. UA with small occult blood and protein, negative for nitrite or leuk esterase. CTA A/P demonstrated interval partial right colectomy, distal segmental colitis/proctitis involving the sigmoid colon and rectum, no acute GI bleed, lumbar degenerative change with canal stenosis, cholelithiasis. Surgery consulted from the ER, initially recommended Zosyn and Flagyl coverage, though there is some suspicion for C diff infection. Patient admitted for observation due to meeting sepsis criteria, possible C diff infection. 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 Initial white count 19.2 with normal lactate and no evidence of sepsis. CT demonstrated colitis/proctitis involving the sigmoid colon and rectum without acute GI bleed. Started on IV antibiotics to cover enteric pathogens. C diff PCR positive on hospital day 2, switched to oral vancomycin and white count normalized by day of discharge. Patient noted improvement in stool symptoms, able to pass flatus this morning without any associated watery stool. Vital signs remained normal throughout hospitalization. Discharge home on oral vancomycin for full 10 day treatment course. Status at Discharge Cognitive/behavioral status at discharge: oriented Functional status at discharge: independent ambulation Overall status at discharge: patient is progressing back to baseline Time Spent with Patient Time spent: Less than 30 minutes Exam Vital Signs (past 8 hours): - 04/16/25 06:00 04/16/25 07:48 Temperature 97.4 F L Pulse Rate 61 60 Respiratory Rate 2 L 18 Blood Pressure 117/48 L 109/49 L Pulse Oximetry 98 Oxygen Delivery Method Room Air Oxygen Flow Rate 0 Narrative Exam Narrative: General: Pleasant, NAD HEENT: NC/AT, EOMI, moist membranes CV: RRR, normal S1-S2, no m/g/r Resp: CTAB, comfortable WOB Abd: Soft, NTND, +BS, laparoscopic incisions well healed without sign of infection Ext: No edema Skin: No rash or lesions noted Neuro: A&O x3, moves all extremities, no focal deficits Objective Labs 04/16/25 05:14 04/16/25 05:14 Labs: Laboratory Results - last 24 hr 04/15/25 04/16/25 08:55 05:14 WBC 7.0 D RBC 2.60 L Hgb 7.8 L Hct 23.8 L MCV 91.5 MCH 30.2 MCHC 33.0 RDW 17.3 H Plt Count 70 L Neut % (Auto) Not Reportable Lymph % (Auto) Not Reportable [place] % (Auto) Not Reportable Eos % (Auto) Not Reportable Baso % (Auto) Not Reportable Lymph # (Auto) Not Reportable [place] # (Auto) Not Reportable Baso # (Auto) Not Reportable Total Counted 100 Seg Neutrophils % 54.0 Lymphocytes % (Manual) 14.0 L D Monocytes % (Manual) 30.0 H Eosinophils % (Manual) 2.0 Neutrophils # (Manual) 3780 RBC Morphology Normal morphology Sodium 136 L Potassium 3.7 3.2 L Chloride 110 H 112 H Carbon Dioxide 18 L BUN 18 Creatinine 1.02 Estimated GFR > 60 BUN/Creatinine Ratio 17.6 Glucose 90 Calcium 7.3 L PFSH Medical History Right bundle branch block Peripheral neuropathy Monoclonal gammopathy Atherosclerosis of aorta Paraganglioma Lower urinary tract symptoms (LUTS) Seasonal allergies Mumps Measles Chicken pox Benign prostatic hyperplasia Esophageal reflux (07/07/03) Hypogonadism in male (05/31/17) Lung nodule (06/12/16) Mixed hyperlipidemia (06/03/15) Hypertension (02/23/11) Surgical History History of lung surgery (~2011) Social History marital status: number of children: 1 household members: spouse lives independently: Yes caregiver/support person: No housing: house pets and animals: No education level: college occupational status: other Previous occupational history: [employer] travel history: recurrent leisure activities: other Smoking Status: Former smoker Tobacco: How many years used: 30 Smokeless tobacco user: other quit status: quit date established second hand exposure: No alcohol intake: current substance use type: does not use Discharge Assessment & Plan Assessment and Plan Assessment: 84-year-old male with monoclonal gammopathy, BPH, dyslipidemia, history of adenocarcinoma of the ileocecal valve s/p laparoscopic right hemicolectomy on 03/10/2025 admitted for proctocolitis with altered mental status on 04/14/2025. Plan of Treatment: #c diff colitis #leukocytosis #GI bleed #s/p hemicolectomy 1-2 day period of AMS/metabolic encephalopathy prior to presentation. CTA A/P showed distal segmental colitis/proctitis involving sigmoid and rectum, no acute GI bleed. C diff PCR positive. -vancomycin 250 mg p.o. q.i.d. times 10 days (04/15-04/24) -s/p metronidazole 500mg IV q8h (04/14-04/16), cefepime 2g IV q8h (04/14-), pip-tazo in ER (04/14) #hypertension #paraganglioma -home propranolol #hyperlipidemia -home rosuvastatin #monoclonal gammopathy #anemia #thrombocytopenia Chronic, stable. Followed by heme-onc in [place]. #decreased renal function Resolved, likely 2/2 dehydration. Discharge Plan Discharge Plan Patient Disposition: Home Discharge orders & Medications Prescriptions: New vancomycin 125 mg Capsule 125 mg PO Q6H 9 Days Qty: 35 0RF Continued multivitamin [Multiple Vitamins] Tablet 1 tab PO QDAY Qty: 0 fluticasone propionate 50 mcg/actuation spray,suspension 1 spray NASAL DAILY alpha lipoic acid 1 cap PO DAILY rosuvastatin 5 mg tablet 5 mg PO DAILY Qty: 90 3RF (DME) Disabled Parking See Rx Instructions .ROUTE .MEDSUPPLY Qty: 1 0RF Patient Comments: does not have one but would like one. Rx Instructions: Patient qualifies for disabled parking as per the attached form. acetaminophen [Tylenol] 325 mg tablet 325 mg PO ONCE PRN (Reason: pain) propranolol 20 mg tablet 10 mg PO DAILY Follow up/Referrals: José Miguel Davison MD [Primary Care Provider, Internal Medicine] Diet/Activity/Treatments Diet: Diet as Tolerated Skin/Wound/Dressing Care Report to your healthcare provider any signs of infection, such as:: chills, fever, night sweats and increased pain Visit Report/Discharge Packet Instructions: Anemia: How Food and Vitamins Can Help, DI for Iron Deficiency Anemia-Adult, How to Prevent Falls, Clostridium difficile Infection, DI for Clostridioides difficile Infection Stand Alone Forms: Patient Portal/API, Stroke Signs & Symptoms Discharge Data Primary Care Provider: José Miguel Davison Discharges patient from system. Discharge Date/Time: 04/16/25 13:30 Quality VTE Deep Vein Thrombosis/Pulmonary Embolism Present on Admission: No IH PROFEE Charge Codes Discharge inpatient/observation: [id number]
[2025-04-16 12:00] VITALS: BP 110/54; PULSE 64; RESP 18; TEMP 36.9; O2SAT 99
[2025-04-16] MEDS: POTASSIUM CHLORIDE 20 MEQ TAB 40 MEQ PO (12:55)
--- NOTE | 2025-04-16 14:58 | PC.NURSE ---
Addendum entered by Natalie Sprague RN 04/16/25 15:09: Pt d/c to home via auto w/spouse. Original Note: Discharge: Pt feels ready to d/c to home. Seen by MD and he gave discharge instructions. Reports only one loose stool today so far. Given c-diff information and understands enteric precautions. 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 Its important to compleat antibiotic as ordered. Reviewed d/c packet. RX has been esent. Questions answered. Pt d/c to home via auto with so
== END 2025-04-16 13:30 | disposition home or self-care (01) | DRG 371 ==
LOC: ED 12:32 → AC 12:56
PROVIDERS: Admitting Provider Family Medicine; Emergency Provider Emergency Medicine; PCP Internal Medicine; Referring Provider Emergency Medicine; Visit Provider Family Medicine
DX: A04.72 Enterocolitis due to Clostridium difficile, not specified as recurrent (principal); G93.41 Metabolic encephalopathy; J18.9 Pneumonia, unspecified organism; C18.0 Malignant neoplasm of cecum; K62.5 Hemorrhage of anus and rectum; D47.2 Monoclonal gammopathy; D50.0 Iron deficiency anemia secondary to blood loss (chronic); N18.31 Chronic kidney disease, stage 3a; E78.2 Mixed hyperlipidemia; I12.9 Hypertensive chronic kidney disease with stage 1 through stage 4 chronic kidney disease, or unspecified chronic kidney disease; D69.6 Thrombocytopenia, unspecified; E86.0 Dehydration; D44.7 Neoplasm of uncertain behavior of aortic body and other paraganglia; Z90.49 Acquired absence of other specified parts of digestive tract; Z87.891 Personal history of nicotine dependence
CPT/HCPCS: 36415; 74174; 80048; 80053; 81003; 81015; 83605; 84145; 85007; 85025; 85610; 85730; 86850; 86900; 86901; 87040; 87086; 87324; 87493; 96361; 96365; 96366; 96367; 99284; J0692; J1650; J2543; Q9967

== ENCOUNTER 2025-05-05 01:41 | Inpatient (IN) | payer MEDICARE, SELFPAY ==
[2025-04-14 15:24] VITALS: BMI 21.6
[2025-05-05] VITALS (17 sets, daily range): BP systolic 119–176; BP diastolic 49–89; PULSE 40–182; RESP 13–23; TEMP 36.6–37.6; O2SAT 85–100; BMI 20.9
--- NOTE | 2025-05-05 01:47 | ED.WEAKNESS ---
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 He denies fever, chills, bodyaches, back pain, urinary complaints, chest pain, shortness of breath, cough, fever, or chills, bodyaches, sore throat. Other than what is stated 14 point review of system is negative. Related Data Home Medications ?Medication ?Instructions ?Recorded ?Confirmed fluticasone propionate 50 1 spray intranasal DAILY 06/04/19 04/29/25 mcg/actuation nasal spray,suspension multivitamin (Multiple Vitamins 1 tab PO QDAY ##0 06/10/23 04/29/25 tablet) alpha lipoic acid 1 cap PO DAILY 05/05/24 04/29/25 acetaminophen 325 mg tablet 325 mg PO ONCE PRN pain 03/01/25 04/29/25 (Tylenol) propranolol 20 mg tablet 10 mg PO DAILY 03/10/25 04/29/25 Previous Rx's ?Medication ?Instructions ?Recorded Disabled Parking #1 ea 05/05/24 rosuvastatin 5 mg tablet 5 mg PO DAILY #90 tabs 05/05/24 alfuzosin 10 mg tablet,extended 10 mg PO DAILY #90 tabs 04/29/25 release 24 hr Allergies Allergy/AdvReac Type Severity Reaction Status Date / Time No Known Drug Allergies Allergy Verified 05/05/25 01:48 Review of Systems Review of Systems ROS Unobtainable: All systems reviewed & are unremarkable except as noted in HPI and below Patient History Medical History C. difficile colitis Proctocolitis Right bundle branch block Peripheral neuropathy Monoclonal gammopathy Atherosclerosis of aorta Paraganglioma Lower urinary tract symptoms (LUTS) Seasonal allergies Mumps Measles Chicken pox Benign prostatic hyperplasia Esophageal reflux (07/07/03) Hypogonadism in male (05/31/17) Lung nodule (06/12/16) Mixed hyperlipidemia (06/03/15) Hypertension (02/23/11) Surgical History Status post left hemicolectomy History of lung surgery (~2011) Social History marital status: number of children: 1 household members: spouse lives independently: Yes caregiver/support person: No housing: house pets and animals: No education level: college occupational status: other Previous occupational history: [employer] travel history: recurrent leisure activities: other Smoking Status: Former smoker Tobacco: How many years used: 30 Smokeless tobacco user: other quit status: quit date established second hand exposure: No alcohol intake: current substance use type: does not use alcohol intake frequency: 0-2 drinks per day Alcohol type: hard liquor Exam Narrative Exam Narrative: GENERAL: [84] year old patient appears stated age. Well-developed patient, in mild distress. HEAD: Atraumatic. Normocephalic. EYES: Pupils equal round and reactive. Extraocular motions intact. No scleral icterus. No injection or drainage. NECK: Trachea midline. Non tender CARDIOVASCULAR: Regular rate and rhythm without murmurs, gallops, or rubs. RESPIRATORY: Clear to auscultation. Breath sounds equal bilaterally. No wheezes, rales, or rhonchi. GASTROINTESTINAL: Abdomen soft, non-tender, nondistended. EXTREMITIES: No edema or joint tenderness. BACK: Nontender without deformity or crepitance. No flank tenderness. NEURO: AOx3. SKIN: No rash or erythema of visible areas Initial Vital Signs Initial Vital Signs: Vital Signs Temperature 98.6 F 05/05/25 01:48 Pulse Rate 92 H 05/05/25 01:48 Respiratory Rate 16 05/05/25 01:48 Blood Pressure 176/79 H 05/05/25 01:48 Pulse Oximetry 98 05/05/25 01:48 Oxygen Delivery Method Room Air 05/05/25 01:48 Course Orders Ordered: Acetaminophen (Acetaminophen 325 Mg Tablet) 650 mg PO Q6H PRN PRN Reason: Fever/Mild Pain (1-3) Last Admin: 05/07/25 14:08 Dose: 650 mg Documented By: Admin: 05/06/25 19:02 Dose: 650 mg Documented By: Admin: 05/05/25 11:04 Dose: 650 mg Documented By: GINA Enoxaparin Sodium (Enoxaparin 40 Mg/0.4 Ml Syringe) 40 mg SUBCUT DAILY [facility] Last Admin: 05/07/25 09:19 Dose: 40 mg Documented By: Admin: 05/06/25 09:54 Dose: 40 mg Documented By: Admin: 05/05/25 11:04 Dose: 40 mg Documented By: GINA Sodium Chloride (Normal Saline 0.9%) 1,000 mls @ 100 mls/hr IV CONT [facility] Last Admin: 05/07/25 21:45 Dose: 100 mls/hr Documented By: Infusion: 05/07/25 19:19 Dose: Infused Documented By: Admin: 05/07/25 09:19 Dose: 100 mls/hr Documented By: GINA Naloxone HCl (Naloxone 0.4 Mg/Ml Vial) 0.2 mg IV Q2MIN PRN PRN Reason: Opiate Reversal Alfuzosin 10 Mg (Tablet Er 24 Hr) 10 mg PO DAILY [facility] Last Admin: 05/07/25 09:15 Dose: Not Given Documented By: Admin: 05/06/25 09:46 Dose: Not Given Documented By: Admin: 05/05/25 10:47 Dose: Not Given Documented By: GINA Ondansetron HCl (Ondansetron 4 Mg/2 Ml Inj) 4 mg IV Q8HR PRN PRN Reason: Nausea And Vomiting Vancomycin HCl (Vancomycin 125 Mg Capsule) 125 mg PO Q6H [facility] Last Admin: 05/08/25 01:27 Dose: 125 mg Documented By: Admin: 05/07/25 20:50 Dose: 125 mg Documented By: Admin: 05/07/25 14:08 Dose: 125 mg Documented By: Admin: 05/07/25 09:19 Dose: 125 mg Documented By: Admin: 05/07/25 03:47 Dose: 125 mg Documented By: Admin: 05/06/25 20:57 Dose: 125 mg Documented By: Admin: 05/06/25 13:57 Dose: 125 mg Documented By: Admin: 05/06/25 09:53 Dose: 125 mg Documented By: Admin: 05/06/25 02:13 Dose: 125 mg Documented By: ON LICENSE OF [facility] Admin: 05/05/25 20:08 Dose: 125 mg Documented By: Admin: 05/05/25 15:02 Dose: 125 mg Documented By: Admin: 05/05/25 11:04 Dose: 125 mg Documented By: GINA Discontinued Medications Lactated Ringer's (Lactated Ringers) 1,000 mls @ 1,000 mls/hr IV BOLUS ONE Stop: 05/05/25 02:53 Last Infusion: 05/05/25 03:16 Dose: Infused Documented By: Admin: 05/05/25 02:04 Dose: 1,000 mls/hr Documented By: ISIS Piperacillin Sod/Tazobactam (Sod 4.5 gm/ Sodium Chloride) 100 mls @ 200 mls/hr IV NOW ONE Stop: 05/05/25 03:05 Last Infusion: 05/05/25 04:03 Dose: Infused Documented By: Admin: 05/05/25 03:23 Dose: 200 mls/hr Documented By: ISIS Dextrose/Sodium Chloride (Dextrose 5%-0.9% Ns) 1,000 mls @ 100 mls/hr IV CONT KIRSTEN Last Infusion: 05/06/25 19:00 Dose: Infused Documented By: Admin: 05/05/25 23:04 Dose: 100 mls/hr Documented By: Infusion: 05/05/25 18:39 Dose: Infused Documented By: Admin: 05/05/25 08:39 Dose: 100 mls/hr Documented By: QUINTON Ondansetron HCl (Ondansetron 4 Mg/2 Ml Inj) 4 mg IV NOW PRN PRN Reason: Nausea And Vomiting Ondansetron HCl (Ondansetron 4 Mg Odt) 4 mg PO NOW PRN PRN Reason: Nausea And Vomiting Potassium Chloride (Potassium Chloride 20 Meq/15 Ml Udc) 40 meq PO NOW ONE Stop: 05/06/25 09:31 Last Admin: 05/06/25 09:53 Dose: 40 meq Documented By: GINA Vital Signs Vital signs: Vital Signs - 8 hr 05/07/25 08:00 Pulse Oximetry 96 Oxygen Delivery Method Room Air MDM - Weakness Lab Data 05/06/25 04:18 05/07/25 04:03 Labs: Lab Results 05/05/25 05/05/25 05/05/25 Range/Units 01:57 02:29 03:10 WBC 16.2 H (4.5-11.0) X10^3/uL RBC 3.52 L (4.5-5.9) X10^6/uL Hgb 10.6 L (13.5-17.5) g/dL Hct 32.0 L (41-53) % MCV 90.8 (80-100) fL MCH 30.1 (26-34) PG MCHC 33.1 (30-36) % RDW 18.0 H (11.6-14.8) % Plt Count 158 (150-400) X10^3/uL Neut % (Auto) Not Reportable Lymph % (Auto) Not Reportable [place] % (Auto) Not Reportable Eos % (Auto) Not Reportable Baso % (Auto) Not Reportable Neut # (Auto) (9444-2801) /uL Lymph # (Auto) Not Reportable [place] # (Auto) Not Reportable Eos # (Auto) (0-450) /uL Baso # (Auto) Not Reportable Total Counted 100 Seg Neutrophils % 63.0 (38-70) % Lymphocytes % (Manual) 8.0 L (25-45) % Monocytes % (Manual) 29.0 H (2-11) % Neutrophils # (Manual) 98003 H (1986-6403) /uL RBC Morphology Normal morphology Sodium 135 L (137-145) mmol/L Potassium 4.0 (3.4-5.1) mmol/L Chloride 103 (98-107) mmol/L Carbon Dioxide 24 (22-32) mmol/L BUN 26 H (9-20) mg/dL Creatinine 1.23 (0.66-1.25) mg/dL Estimated GFR 58 L (>60) mL/min BUN/Creatinine Ratio 21.1 (6-22) Glucose 111 H (70-99) mg/dL Lactate 1.5 (0.7-2.1) mmol/L Calcium 8.7 (8.4-10.2) mg/dL Total Bilirubin 0.6 (0.2-1.3) mg/dL AST 26 (17-59) IU/L ALT 22 (<50) IU/L Alkaline Phosphatase 68 (38-126) U/L Troponin I < 0.012 (0.01-0.034) ng/mL Total Protein 7.6 (6.3-8.2) g/dL Albumin 4.0 (3.5-5.0) g/dL Globulin 3.6 (1.7-4.1) g/dL Albumin/Globulin Ratio 1.1 (1.0-2.8) Lipase 70 (23-300) U/L Urine RBC 1-5/hpf (0-5/HPF) Urine WBC 0-1/hpf (0-5/HPF) Ur Squamous Epith Cells 0-1 /hpf (0-5/HPF) Ur Transition Epith Cell 0-1/hpf (0-5/HPF) Urine Bacteria Few (2-10) H (None) Hyaline Casts 1-5/lpf (None) Urine Mucus 1+ H (Negative) Ur Culture Indicated? Cult not indicated Vol Urine Centrifuged 10ml (spun) C. difficile Tox (PCR) (Negative) C. diff Toxin A&B (EIA) (Negative) 05/05/25 05/06/25 05/07/25 Range/Units 04:30 04:18 04:03 WBC 14.7 H (4.5-11.0) X10^3/uL RBC 3.03 L (4.5-5.9) X10^6/uL Hgb 9.1 L (13.5-17.5) g/dL Hct 27.7 L (41-53) % MCV 91.3 (80-100) fL MCH 30.0 (26-34) PG MCHC 32.9 (30-36) % RDW 17.9 H (11.6-14.8) % Plt Count 116 L (150-400) X10^3/uL Neut % (Auto) 54.6 Lymph % (Auto) 5.5 L [place] % (Auto) 39.5 H Eos % (Auto) 0.1 L Baso % (Auto) 0.3 Neut # (Auto) 8000 H (7111-1031) /uL Lymph # (Auto) 800 L [place] # (Auto) 5800 H Eos # (Auto) 0 (0-450) /uL Baso # (Auto) 0 Total Counted Seg Neutrophils % (38-70) % Lymphocytes % (Manual) (25-45) % Monocytes % (Manual) (2-11) % Neutrophils # (Manual) (0763-5228) /uL RBC Morphology Sodium 134 L 135 L (137-145) mmol/L Potassium 3.5 3.5 (3.4-5.1) mmol/L Chloride 106 107 (98-107) mmol/L Carbon Dioxide 21 L 20 L (22-32) mmol/L BUN 15 16 (9-20) mg/dL Creatinine 1.06 1.00 (0.66-1.25) mg/dL Estimated GFR > 60 > 60 (>60) mL/min BUN/Creatinine Ratio 14.2 16.0 (6-22) Glucose 111 H 91 (70-99) mg/dL Lactate (0.7-2.1) mmol/L Calcium 7.9 L 7.9 L (8.4-10.2) mg/dL Total Bilirubin (0.2-1.3) mg/dL AST (17-59) IU/L ALT (<50) IU/L Alkaline Phosphatase (38-126) U/L Troponin I (0.01-0.034) ng/mL Total Protein (6.3-8.2) g/dL Albumin (3.5-5.0) g/dL Globulin (1.7-4.1) g/dL Albumin/Globulin Ratio (1.0-2.8) Lipase (23-300) U/L Urine RBC (0-5/HPF) Urine WBC (0-5/HPF) Ur Squamous Epith Cells (0-5/HPF) Ur Transition Epith Cell (0-5/HPF) Urine Bacteria (None) Hyaline Casts (None) Urine Mucus (Negative) Ur Culture Indicated? Vol Urine Centrifuged C. difficile Tox (PCR) Positive for c. diff H (Negative) C. diff Toxin A&B (EIA) Positive A (Negative) Urine Dip Bedside Urine Glucose Negative Bedside Urine Bilirubin - Negative Bedside Urine Ketone - Negative Urine Specific [place] 1.025 Bedside Urine Occult Blood + Bedside Urine pH 6.0 Bedside Urine Protein + 30 Bedside Urine Urobilinogen - Negative Bedside Urine Nitrite - Negative Bedside Urine Leukocytes - Negative Esterase Imaging Data US - abdomen: Radiologist Impression: [address] [id number] Ultrasound Report Signed Patient: Justyn Tinsley MR#: [id number] : 1940 Acct:[id number] Age/Sex: 84 / M Date of Service: 05/05/25 Loc: 209-1 Accession Number: [id number] Procedure: US abdomen limited Ordering Provider: José Miguel Roblero D.O. PROCEDURE: US ABDOMEN LIMITED INDICATIONS: gallbladder US TECHNIQUE: Real-time scanning was performed of the abdominal and retroperitoneal organs, with image documentation. COMPARISON: [facility], CT, CT ABDOMEN PELVIS W CON, 05/05/2025, 2:03. FINDINGS: Gallbladder: No gallstones. No wall thickening. No pericholecystic edema. Negative sonographic Ornelas's sign. Biliary ducts: Intrahepatic bile ducts are non-dilated. Extrahepatic bile duct caliber measures 6.9 mm. Normal is 6-7 mm or less in diameter, or 10 mm or less post-cholecystectomy. Miscellaneous: No free abdominal fluid. IMPRESSION: Cholelithiasis without wall thickening or adjacent fat stranding to suggest acute cholecystitis. CT scan - abdomen/pelvis: Radiologist Impression: e/Sex: 84 / M Date of Service: 05/05/25 Loc: 209-1 Accession Number: [id number] Procedure: CT abdomen pelvis w con Ordering Provider: José Miguel Roblero D.O. PROCEDURE: CT ABDOMEN PELVIS W CON INDICATIONS: abd pain /diarrhea/ hx c diff colitis TECHNIQUE: After the administration of intravenous contrast, axial sections acquired from the lung bases to the pubic symphysis. Coronal and sagittal reformats were performed. For radiation dose reduction, the following was used: automated exposure control, adjustment of mA and/or kV according to patient size. COMPARISON: None. FINDINGS: Image quality: Diagnostic. Lower Chest: Trace hiatal hernia. Small pericardial effusion. ABDOMEN: Liver: No solid mass. Gallbladder: Cholelithiasis without wall thickening or adjacent fat stranding to suggest acute cholecystitis. Biliary ducts: No biliary dilation. Pancreas: No ductal dilation. Spleen: Size is within normal limits. Adrenal Glands: No adrenal nodules. Kidneys and Ureters: No hydronephrosis. No solid mass. No complex renal cystic lesion which requires follow up. Stomach and Bowel: Significant rectal wall thickening with associated wall stratification. There is wall thickening of the distal descending colon and sigmoid colon. Trace pericolonic fat stranding. Prior partial colectomy at the cecum. Peritoneum: No abnormal intraperitoneal fluid. No free air. Ventral Wall: Small umbilical hernia containing fat. Abdominal Nodes: No retroperitoneal or mesenteric adenopathy by size criteria. Vessels: Aorta and inferior vena cava are normal in size. PELVIS: Pelvic Organs: Unremarkable. Bladder: No bladder wall thickening, accounting for underdistention. Pelvic Nodes: No enlarged lymph nodes. Miscellaneous: No inguinal hernias are seen. Bones: No aggressive osseous abnormality. IMPRESSION: Colitis/proctitis of the distal descending colon to the rectum. Cholelithiasis without wall thickening or adjacent fat stranding to suggest acute cholecystitis. Dictated by: Vitaly Barraza M.D. on 05/05/2025 at 9:26 Approved by: Vitaly Barraza M.D. on 05/05/2025 at 9:50 MDM Narrative Medical decision making narrative: All lab work, vital signs, nurse triage note, medication list, previous ER visits, and all imaging studies reviewed. WBC 16.2 hemoglobin 10.6 platelets 158 sodium 135 potassium 4.0 chloride 103 CO2 24 BUN 26 creatinine 1.23 BUN 21 close 111 troponin normal LFTs normal lipase 70 urine negative nitrite leukocyte +blood. CT abdomen and pelvis shows findings compatible with proctitis colitis involving distal sigmoid colon. No pranav colonic focal drainable collection or pneumoperitoneum. Cholelithiasis and gallbladder wall thickening. US showed gallstones and gallbladder sludge with gallbladder distention. Patient given Zosyn 4.5g IV x 1 to and LR 1L bolus x1. Stool sample recollected and resent for c.diff testing. Case d/w will be the consult on the case and at this time to withhold any further doses of Zosyn. C.diff results pending. Case d/w hospitalist who has graciously accepted the patient for inpatient admission. Discharge Plan Departure Patient Disposition: Admitted As Inpatient Clinical Impression: Colitis Diarrhea Qualifiers: Diarrhea type: infectious Qualified Code(s): A09 - Infectious gastroenteritis and colitis, unspecified Gall[place] Qualifiers: Cholecystitis presence: without cholecystitis Biliary obstruction: without biliary obstruction Qualified Code(s): K80.20 - Calculus of gallbladder without cholecystitis without obstruction Admit Date/Time: 05/07/25 08:22 Admit Provider: José Miguel Davison
--- NOTE | 2025-05-05 01:53 | DI.CT.S_ITS ---
PROCEDURE: CT ABDOMEN PELVIS W CON INDICATIONS: abd pain /diarrhea/ hx c diff colitis TECHNIQUE: After the administration of intravenous contrast, axial sections acquired from the lung bases to the pubic symphysis. Coronal and sagittal reformats were performed. For radiation dose reduction, the following was used: automated exposure control, adjustment of mA and/or kV according to patient size. COMPARISON: None. FINDINGS: Image quality: Diagnostic. Lower Chest: Trace hiatal hernia. Small pericardial effusion. ABDOMEN: Liver: No solid mass. Gallbladder: Cholelithiasis without wall thickening or adjacent fat stranding to suggest acute cholecystitis. Biliary ducts: No biliary dilation. Pancreas: No ductal dilation. Spleen: Size is within normal limits. Adrenal Glands: No adrenal nodules. Kidneys and Ureters: No hydronephrosis. No solid mass. No complex renal cystic lesion which requires follow up. Stomach and Bowel: Significant rectal wall thickening with associated wall stratification. There is wall thickening of the distal descending colon and sigmoid colon. Trace pericolonic fat stranding. Prior partial colectomy at the cecum. Peritoneum: No abnormal intraperitoneal fluid. No free air. Ventral Wall: Small umbilical hernia containing fat. Abdominal Nodes: No retroperitoneal or mesenteric adenopathy by size criteria. Vessels: Aorta and inferior vena cava are normal in size. PELVIS: Pelvic Organs: Unremarkable. Bladder: No bladder wall thickening, accounting for underdistention. Pelvic Nodes: No enlarged lymph nodes. Miscellaneous: No inguinal hernias are seen. Bones: No aggressive osseous abnormality. IMPRESSION: Colitis/proctitis of the distal descending colon to the rectum. Cholelithiasis without wall thickening or adjacent fat stranding to suggest acute cholecystitis. Dictated by: Vitaly Barraza M.D. on 05/05/2025 at 9:26 Approved by: Vitaly Barraza M.D. on 05/05/2025 at 9:50
[2025-05-05] MEDS: LACTATED RINGERS 1,000 ML 1000 ML IV (02:04)
[2025-05-05 02:15] LABS: Add Manual Diff / Slide Review YES; Hematocrit 32.0 % (41-53); Hemoglobin 10.6 g/dL (13.5-17.5); Mean Corpuscular HGB Conc 33.1 % (30-36); Mean Corpuscular Hemoglobin 30.1 PG (26-34); Mean Corpuscular Volume 90.8 fL (80-100); Platelet Count 158 X10^3/uL (150-400)
[2025-05-05 02:16] LABS: Alanine Aminotransferase 22 IU/L (<50); Albumin 4.0 g/dL (3.5-5.0); Albumin Globulin Ratio 1.1 (1.0-2.8); Alkaline Phosphatase 68 U/L (38-126); Blood Urea Nitrogen 26 mg/dL (9-20); Calcium 8.7 mg/dL (8.4-10.2); Carbon Dioxide 24 mmol/L (22-32); Chloride 103 mmol/L (98-107); Estimated Glomerular Filt Rate 58 mL/min (>60); Globulin 3.6 g/dL (1.7-4.1); Glucose 111 mg/dL (70-99); HEMOLYSIS < 15 (0-50); Lipase 70 U/L (23-300); Potassium 4.0 mmol/L (3.4-5.1); Sodium 135 mmol/L (137-145); Total Protein 7.6 g/dL (6.3-8.2)
[2025-05-05 02:27] LABS: Troponin I < 0.012 ng/mL (0.01-0.034)
[2025-05-05 02:37] LABS: Lymphocytes Percent Manual 8.0 % (25-45); Monocytes Percent Manual 29.0 % (2-11); Neutrophils Absolute Manual 10206 /uL (3000-5900); RBC Morphology Normal Morphology; Segmented Neutrophils Percent 63.0 % (38-70); Total Cells Counted 100
--- NOTE | 2025-05-05 03:20 | DI.US.S_ITS ---
PROCEDURE: US ABDOMEN LIMITED INDICATIONS: gallbladder US TECHNIQUE: Real-time scanning was performed of the abdominal and retroperitoneal organs, with image documentation. COMPARISON: [facility], CT, CT ABDOMEN PELVIS W CON, 05/05/2025, 2:03. FINDINGS: Gallbladder: No gallstones. No wall thickening. No pericholecystic edema. Negative sonographic Ornelas's sign. Biliary ducts: Intrahepatic bile ducts are non-dilated. Extrahepatic bile duct caliber measures 6.9 mm. Normal is 6-7 mm or less in diameter, or 10 mm or less post-cholecystectomy. Miscellaneous: No free abdominal fluid. IMPRESSION: Cholelithiasis without wall thickening or adjacent fat stranding to suggest acute cholecystitis. Dictated by: Vitaly Barraza M.D. on 05/05/2025 at 10:01 Approved by: Vitaly Barraza M.D. on 05/05/2025 at 10:02
[2025-05-05] MEDS: PIPERACILLIN/TAZO 4.5 GM in SODIUM CHLORIDE 0.9% 100 ML IV (03:23)
[2025-05-05 03:27] LABS: Culture Indicated Urine Cult Not Indicated
[2025-05-05 03:34] LABS: Lactate (Lactic Acid) 1.5 mmol/L (0.7-2.1)
--- NOTE | 2025-05-05 04:13 | PC.NURSE ---
Pt ambulated on own to restroom
[2025-05-05 05:11] LABS: Clostridium Difficile Tox PCR Positive for C. diff (Negative)
--- NOTE | 2025-05-05 06:43 | PM.HP.IH.1 ---
History of Present Illness History of Present Illness Date Patient Seen: 05/05/25 Time Patient Seen: 06:44 Chief complaint: Weakness Narrative: 84-year-old male, who somewhat recently had a hemicolectomy for colon cancer admitted to the hospital first part of April with what turned out to be C diff colitis re admitted via the emergency department with persistent weakness and diarrhea at least for the last 3 days Patient was admitted with evidence of sigmoid colitis diagnosed with C diff. He completed a 10 day course of oral vancomycin with resolution of his symptoms, discharged on April 16. Seen in clinic follow-up last week and was doing well at that time without symptoms although still working to get his strength back Apparently since that time he has developed again intermittent diarrhea with weakness. Patient reports about 3 days of diarrhea with increasing weakness and feeling drained. Denies fever chills nausea or vomiting. His ER evaluation demonstrates leukocytosis with left shift, CT scan demonstrates recurrence of his proctitis and sigmoid colitis without evidence of further complication. He received a single dose of Zosyn in the emergency department and sample was sent for C diff PCR as well. Fortunately his renal function and electrolytes were normal. 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 difficile colitis Proctocolitis Right bundle branch block Peripheral neuropathy Monoclonal gammopathy Atherosclerosis of aorta Paraganglioma Lower urinary tract symptoms (LUTS) Seasonal allergies Mumps Measles Chicken pox Benign prostatic hyperplasia Esophageal reflux (07/07/03) Hypogonadism in male (05/31/17) Lung nodule (06/12/16) Mixed hyperlipidemia (06/03/15) Hypertension (02/23/11) Surgical History Status post left hemicolectomy History of lung surgery (~2011) Social History marital status: number of children: 1 household members: spouse lives independently: Yes caregiver/support person: No housing: house pets and animals: No education level: college occupational status: other Previous occupational history: [employer] travel history: recurrent leisure activities: other Tobacco: How many years used: 30 Smokeless tobacco user: other quit status: quit date established second hand exposure: No alcohol intake: current substance use type: does not use Meds Home Medications and Allergies Home Medications ?Medication ?Instructions ?Recorded ?Confirmed ?Type fluticasone propionate 50 1 spray intranasal DAILY 06/04/19 04/29/25 History mcg/actuation nasal spray,suspension multivitamin (Multiple Vitamins 1 tab PO QDAY ##0 06/10/23 04/29/25 History tablet) Disabled Parking #1 ea 05/05/24 04/29/25 Rx alpha lipoic acid 1 cap PO DAILY 05/05/24 04/29/25 History rosuvastatin 5 mg tablet 5 mg PO DAILY #90 tabs 05/05/24 04/29/25 Rx acetaminophen 325 mg tablet 325 mg PO ONCE PRN pain 03/01/25 04/29/25 History (Tylenol) propranolol 20 mg tablet 10 mg PO DAILY 03/10/25 04/29/25 History alfuzosin 10 mg tablet,extended 10 mg PO DAILY #90 tabs 04/29/25 04/29/25 Rx release 24 hr Allergies Allergy/AdvReac Type Severity Reaction Status Date / Time No Known Drug Allergies Allergy Verified 05/05/25 01:48 Review of Systems Review of Systems ROS: Yes All systems reviewed with the patient and are negative except as otherwise documented Exam Vital Signs (past 8 hours): - 05/05/25 01:48 05/05/25 01:48 05/05/25 02:00 Temperature 98.6 F Pulse Rate 92 H 103 H 115 H Respiratory Rate 16 17 Blood Pressure 176/79 H Pulse Oximetry 98 99 99 Oxygen Delivery Method Room Air 05/05/25 02:00 05/05/25 02:52 05/05/25 03:00 Temperature Pulse Rate 93 H 89 Respiratory Rate 17 23 Blood Pressure 171/80 H Pulse Oximetry 91 99 Oxygen Delivery Method 05/05/25 03:30 05/05/25 04:27 05/05/25 04:30 Temperature Pulse Rate 85 97 H 182 H Respiratory Rate 23 21 Blood Pressure Pulse Oximetry 100 97 98 Oxygen Delivery Method 05/05/25 04:55 05/05/25 04:55 05/05/25 05:00 Temperature Pulse Rate 86 86 Respiratory Rate 18 19 Blood Pressure 158/78 H Pulse Oximetry 98 97 Oxygen Delivery Method 05/05/25 05:00 Temperature Pulse Rate Respiratory Rate Blood Pressure 155/75 H Pulse Oximetry Oxygen Delivery Method Oxygen Delivery Method Room Air Narrative Exam Narrative: HEENT-unremarkable, normocephalic atraumatic Neck-no lymphadenopathy no bruits Lungs-clear anteriorly and posteriorly no wheezes no crackles good breath sounds Heart-regular rate and rhythm, no murmur, rub, or gallop. normal S1-S2 Abdomen-positive bowel tones, soft, nontender, nondistended, no hepatosplenomegaly, no masses palpable Neuro-normal to screening exam, gait not tested Extremities-no cyanosis clubbing or edema Objective Labs 05/05/25 01:57 05/05/25 01:57 Labs: Laboratory Results - last 24 hr 05/05/25 05/05/25 05/05/25 01:57 02:29 03:10 WBC 16.2 H RBC 3.52 L Hgb 10.6 L Hct 32.0 L MCV 90.8 MCH 30.1 MCHC 33.1 RDW 18.0 H Plt Count 158 Neut % (Auto) Not Reportable Lymph % (Auto) Not Reportable [place] % (Auto) Not Reportable Eos % (Auto) Not Reportable Baso % (Auto) Not Reportable Lymph # (Auto) Not Reportable [place] # (Auto) Not Reportable Baso # (Auto) Not Reportable Total Counted 100 Seg Neutrophils % 63.0 Lymphocytes % (Manual) 8.0 L Monocytes % (Manual) 29.0 H Neutrophils # (Manual) 49904 H RBC Morphology Normal morphology Sodium 135 L Potassium 4.0 Chloride 103 Carbon Dioxide 24 BUN 26 H Creatinine 1.23 Estimated GFR 58 L BUN/Creatinine Ratio 21.1 Glucose 111 H Lactate 1.5 Calcium 8.7 Total Bilirubin 0.6 AST 26 ALT 22 Alkaline Phosphatase 68 Troponin I < 0.012 Total Protein 7.6 Albumin 4.0 Globulin 3.6 Albumin/Globulin Ratio 1.1 Lipase 70 Urine RBC 1-5/hpf Urine WBC 0-1/hpf Ur Squamous Epith Cells 0-1 /hpf Ur Transition Epith Cell 0-1/hpf Urine Bacteria Few (2-10) H Hyaline Casts 1-5/lpf Urine Mucus 1+ H Ur Culture Indicated? Cult not indicated Vol Urine Centrifuged 10ml (spun) C. difficile Tox (PCR) 05/05/25 04:30 WBC RBC Hgb Hct MCV MCH MCHC RDW Plt Count Neut % (Auto) Lymph % (Auto) [place] % (Auto) Eos % (Auto) Baso % (Auto) Lymph # (Auto) [place] # (Auto) Baso # (Auto) Total Counted Seg Neutrophils % Lymphocytes % (Manual) Monocytes % (Manual) Neutrophils # (Manual) RBC Morphology Sodium Potassium Chloride Carbon Dioxide BUN Creatinine Estimated GFR BUN/Creatinine Ratio Glucose Lactate Calcium Total Bilirubin AST ALT Alkaline Phosphatase Troponin I Total Protein Albumin Globulin Albumin/Globulin Ratio Lipase Urine RBC Urine WBC Ur Squamous Epith Cells Ur Transition Epith Cell Urine Bacteria Hyaline Casts Urine Mucus Ur Culture Indicated? Vol Urine Centrifuged C. difficile Tox (PCR) Positive for c. diff H Assessment & Plan Assessment & Plan narrative: 1. Colitis with diarrhea-likely recurrence of his C diff colitis. We will await his PCR results but I have empirically started him on vancomycin orally again. Given his prior history and prior diagnosis is seems to be less likely that this is some other source of infection and while he received IV antibiotics emergency department I do not believe at this time that he needs to continue on antibiotic therapy directed at other organisms beyond the Clostridium difficile. He will need at least several weeks of oral vancomycin to eradicate his infection, again assuming this turns out to be C diff on PCR 2. Hypertension-continue to monitor his numbers while hospitalized 3. Colon cancer-followed at [facility], felt to have stage II disease with no role for adjuvant systemic therapy at this time 4. Monoclonal gammopathy-no evidence of transformation into more malignant hematological disorder 5. Code status-full code in the event of a sudden cardiac or respiratory arrest 6. VTE prophylaxis-Lovenox makes sense given his normal renal function, as well as his weakness and likelihood to be mostly bed-bound for at least the initial portion of his hospital stay Time-Based Coding :: [TOTAL MINUTES] spent with patient and on the chart (including review of chart, obtaining history, exam, reviewing outside data, placing orders, documenting exam and treatment plan, and counseling patient) on [DATE]. PROFEE Manager Transfusion Document charge(s): Yes Charge Codes Initial inpatient/observation care: [id number]
[2025-05-05] MEDS: DEXTROSE 5%-0.9% NS 1,000 ML 100 ML IV ×2 (08:39→23:04)
[2025-05-05] MEDS: ENOXAPARIN 40 MG/0.4 ML SYRINGE SUBCUT (11:04)
[2025-05-05] MEDS: VANCOMYCIN 125 MG CAPSULE PO ×3 (11:04→20:08)
[2025-05-05] MEDS: ACETAMINOPHEN 325 MG TABLET 650 MG PO (11:04)
--- NOTE | 2025-05-05 15:02 | DIET.CONS ---
Dietary Consultation Note Admission Date: 05/05/2025 04:54 Assessment: 84 y M admitted for recurrent c. diff. Dietitian consulted for weight loss >10 lb. Hx of hemicolectomy in March and admission for c. diff beginning of apr. Met with pt at bedside. Reporting no appetite last 3 days, just having sips of liquids. Feels weight loss started after hemicolectomy in March. Difficulty recalling PO intake amounts/diet recall in last few months, just that appetite has been lower and not eating much when he has been in the hospital. NFPE with moderate loss in temples and deltoid, moderate subcutaneous fat loss in buccal and orbital fat pads. Ht: 182.88 cm Wt: 69.853 kg BMI: 20.9 UBW: 82.355 kg on 05/05/24, 77.111 kg on 01/29/25 (-9.5% weight loss in 3 months, severe) Last BM: 05/05/25 (05/05/25 08:29) MNA: 9 Chase Score: 17 Diet: 05/05/25 Breakfast Full Liquid Diet Diet Modifications: Labs: RBC 3.52 X10^6/uL (4.5-5.9) L 05/05/25 01:57 Hgb 10.6 g/dL (13.5-17.5) L 05/05/25 01:57 Hct 32.0 % (41-53) L 05/05/25 01:57 Creatinine 1.23 mg/dL (0.66-1.25) 05/05/25 01:57 Lactate 1.5 mmol/L (0.7-2.1) 05/05/25 03:10 Nutrition Diagnosis: Moderate acute protein calorie malnutrition r/t changes in GI tract structure/function as evidenced by 9.5% (15 lb) weight loss in 3 months (severe), BMI underweight for age (20.9), moderate muscle wasting (temples, deltoid) and moderate subcutaneous fat loss (buccal and orbital fat pads), hx of colon cancer with hemicolectomy and recurrent c. diff colitis Interventions: ONS with meals, discussed when able to tolerate diet again, small freq meals and using Ensure supplement daily to BID for weight regain EER: 2000 kcals (28 kcals/kg per BMI) 70 g protein (1g/kg) Monitoring/Evaluations: po intakes, ONS tolerance Electronically Signed by: Amparo Shabazz 05/05/25 15:02 Clinical Dietitian [address] [address]
[2025-05-06] VITALS: BP 116/86; PULSE 83; RESP 17; TEMP 37; O2SAT 98
--- NOTE | 2025-05-06 00:36 | PC.NURSE ---
Patient is alert and oriented except to month, day of week and day of month but with STM loss and forgetfulness. Breath sounds CTA with RA sat of 98%. HRR. Denied nausea. BT present and abdomen is soft; had several loose stools on previous shift (c-diff) but none as yet this shift. At shift change complained he has not been able to urinate and day RN reports several voids but no amounts recorded so bladder scan done and showing 572cc in bladder after which he stood at side of bed and voided 190cc. Dr. Munoz was notified by CHERYLE Dawson and order received to do straight cath in scan > 400cc. After voiding patient up several additional times attempting to urinate but unable to do so. Straight cath done by CHERYLE Dawson with 625cc obtained. Now calmer and not making additional attempts to urinated. Is up to stand at bedside to urinate with 1 assist and walker and is very slow and unsteady. Is able to turn himself in bed and does not call for assistance before trying to get up so bed alarm is activated. Not utilizing SCD's due to potential safety risk with him trying to get up on his own. Denied pain. Is on enteric precautions due to being positive for c-diff. Fall risk score is high.
[2025-05-06] MEDS: VANCOMYCIN 125 MG CAPSULE PO ×4 (02:13→20:57)
[2025-05-06 04:58] LABS: Blood Urea Nitrogen 15 mg/dL (9-20); Calcium 7.9 mg/dL (8.4-10.2); Carbon Dioxide 21 mmol/L (22-32); Chloride 106 mmol/L (98-107); Estimated Glomerular Filt Rate > 60 mL/min (>60); Glucose 111 mg/dL (70-99); HEMOLYSIS < 15 (0-50); Potassium 3.5 mmol/L (3.4-5.1); Sodium 134 mmol/L (137-145)
[2025-05-06 05:00] LABS: Add Manual Diff / Slide Review NO; Hematocrit 27.7 % (41-53); Hemoglobin 9.1 g/dL (13.5-17.5); Lymphocytes Absolute Auto 800 /uL (1100-4500); Mean Corpuscular HGB Conc 32.9 % (30-36); Mean Corpuscular Hemoglobin 30.0 PG (26-34); Mean Corpuscular Volume 91.3 fL (80-100); Platelet Count 116 X10^3/uL (150-400)
[2025-05-06 06:00] VITALS: BP 137/61; PULSE 86; RESP 17; TEMP 37; O2SAT 100
--- NOTE | 2025-05-06 07:35 | PM.PN.IH.1 ---
Subjective Subjective Date Patient Seen: 05/06/25 Time Patient Seen: 07:36 Interval history: Patient says he may be feeling a bit better. Still struggling to get out of bed on his feet to get to the bathroom. Feels like his stool is starting to be more formed. Lab work this morning unremarkable white count some better Exam Vital Signs (past 8 hours): - 05/06/25 00:00 05/06/25 06:00 Temperature 98.6 F 98.6 F Pulse Rate 83 86 Respiratory Rate 17 17 Blood Pressure 116/86 137/61 Pulse Oximetry 98 100 Oxygen Flow Rate 0 0 Oxygen Delivery Method Room Air Oxygen Flow Rate 0 Objective Labs 05/06/25 04:18 05/06/25 04:18 Labs: Laboratory Results - last 24 hr 05/06/25 04:18 WBC 14.7 H RBC 3.03 L Hgb 9.1 L Hct 27.7 L MCV 91.3 MCH 30.0 MCHC 32.9 RDW 17.9 H Plt Count 116 L Neut % (Auto) 54.6 Lymph % (Auto) 5.5 L [place] % (Auto) 39.5 H Eos % (Auto) 0.1 L Baso % (Auto) 0.3 Neut # (Auto) 8000 H Lymph # (Auto) 800 L [place] # (Auto) 5800 H Eos # (Auto) 0 Baso # (Auto) 0 Sodium 134 L Potassium 3.5 Chloride 106 Carbon Dioxide 21 L BUN 15 Creatinine 1.06 Estimated GFR > 60 BUN/Creatinine Ratio 14.2 Glucose 111 H Calcium 7.9 L PFSH Medical History C. difficile colitis Proctocolitis Right bundle branch block Peripheral neuropathy Monoclonal gammopathy Atherosclerosis of aorta Paraganglioma Lower urinary tract symptoms (LUTS) Seasonal allergies Mumps Measles Chicken pox Benign prostatic hyperplasia Esophageal reflux (07/07/03) Hypogonadism in male (05/31/17) Lung nodule (06/12/16) Mixed hyperlipidemia (06/03/15) Hypertension (02/23/11) Surgical History Status post left hemicolectomy History of lung surgery (~2011) Social History marital status: number of children: 1 household members: spouse lives independently: Yes caregiver/support person: No housing: house pets and animals: No education level: college occupational status: other Previous occupational history: [employer] travel history: recurrent leisure activities: other Smoking Status: Former smoker Tobacco: How many years used: 30 Smokeless tobacco user: other quit status: quit date established second hand exposure: No alcohol intake: current substance use type: does not use Assessment & Plan Assessment & Plan narrative: 1. C diff colitis-continue with oral vancomycin. Advance diet slowly to a low residue diet today given the active colitis. Hopefully he is indeed improving and I would anticipate at least 3 weeks of treatment with oral vancomycin 2. Generalized weakness-lab work pretty unremarkable today and has been accept for his leukocytosis of course. I think he would benefit from skilled therapies trying get him up on his feet. Therefore PT OT have been ordered. He should be able to return home though when seems like his colitis is significantly and clearly improving 3. Hypertension-blood pressure numbers seem very good. No reason for intervention at this time. 4. Colon cancer-not an active issue at this time 5. Disposition-patient likely to be able to return home when felt to be medically stable from mostly a GI/colitis standpoint. Also will have skilled therapy evaluating him as above Time-Based Coding :: [TOTAL MINUTES] spent with patient and on the chart (including review of chart, obtaining history, exam, reviewing outside data, placing orders, documenting exam and treatment plan, and counseling patient) on [DATE]. PROFEE Pompom Maker Document charge(s): Yes Charge Codes Subsequent inpatient/observation care: [id number]
[2025-05-06 09:00] VITALS: O2SAT 97
[2025-05-06] MEDS: POTASSIUM CHLORIDE 20 MEQ/15 ML UDC 40 MEQ PO (09:53)
[2025-05-06] MEDS: ENOXAPARIN 40 MG/0.4 ML SYRINGE SUBCUT (09:54)
--- NOTE | 2025-05-06 13:25 | PT.IIE ---
Surgical History (Last Reviewed 05/05/25 @ 06:46 by Joés Miguel Davison MD) History of lung surgery (~2011) Status post left hemicolectomy Medical History (Last Reviewed 05/05/25 @ 06:46 by José Miguel Davison MD) Atherosclerosis of aorta Benign prostatic hyperplasia C. difficile colitis Chicken pox Esophageal reflux (07/07/03) Hypertension (02/23/11) Hypogonadism in male (05/31/17) Lower urinary tract symptoms (LUTS) Lung nodule (06/12/16) Measles Mixed hyperlipidemia (06/03/15) Monoclonal gammopathy Mumps Paraganglioma Peripheral neuropathy Proctocolitis Right bundle branch block Seasonal allergies Physical Therapy Inpatient Evaluation/Re-Eval M1 PT/OT-IP Prior Functional Status Start: 05/06/25 13:32 Freq: NEEDED Status: Active Protocol: Document 05/06/25 12:49 DCW (Rec: 05/06/25 13:51 DCW [id number]) Medical Review Prior Functional Status Medical History Yes Reviewed Communication Able to communicate needs Mobility and Gait Has walker and cane, states he uses it when he needs it, unable to relay what circumstances make him feel he needs it. Social History Household Members spouse Living Arrangements House Number of Floors ( Two Floors Floors) Number of Stairs To 4 steps, B railing Enter/Railing? Home Equipment Front Wheel Walker,Straight Cane M2 PT-IP Current Condition Start: 05/06/25 13:32 Freq: NEEDED Status: Active Protocol: Document 05/06/25 12:49 DCW (Rec: 05/06/25 13:51 DCW [id number]) Physical Therapy Current Condition Current Condition Evaluation Date 05/06/25 Treatment Diagnosis C-diff, weakness Onset Date 05/05/25 M3 PT-IP Subjective Start: 05/06/25 13:32 Freq: NEEDED Status: Active Protocol: Document 05/06/25 12:49 DCW (Rec: 05/06/25 13:51 DCW [id number]) Subjective Physical Therapy Visit Type Type Initial Evaluation Visit Start Time 12:49 Visit Stop Time 13:25 Physical Therapy Visit Comments Patient Comments Pt up in restroom with STARCH CRAB when therapist entered room. Per STARCH CRAB, pt was getting himself to restroom, so STARCH CRAB had to chi in and assist. Therapy Pain Assessment Pain Present Pain Present Denied Pain M4 PT-IP Mobility and Gait Start: 05/06/25 13:32 Freq: NEEDED Status: Active Protocol: Document 05/06/25 12:49 DCW (Rec: 05/06/25 13:51 DCW [id number]) PT-Bed Mobility Assessment Supine to Sit Supine to Sit Standby Assistance Sit to Supine Sit to Supine Standby Assistance Scooting Scooting to Edge of Contact Guard Assistance Bed Scooting Up and Down Contact Guard Assistance in Bed PT-Transfer Assessment Sit to and From Stand Sit to and from Contact Guard Assistance Stand Equipment Transfer Assistive Gait Belt,Front Wheeled Walker Device Orthotic/Prosthetic No Devices or Brace: Comments Mobility Comments After exiting restroom and walking around the room, pt sat EOB, got his legs back into bed SBA, then decided he needed to urinate, got back out of bed, and used urinal standing EOB. All largely able to do SBA, CGA when standing EOB. Gait Assessment Gait Gait Assistance Contact Guard Assist Required: Distance (Feet) 50 Assistive Devices Assistive Device Gait Belt,Front Wheeled Walker Gait Deviations General Gait Pattern Decreased Stride Length,Decreased Feet Clearance,Flexed Trunk PT-Balance Assessment Sitting Balance and Reactions Static Sitting Normal Balance Ability Dynamic Sitting Normal Balance Ability Standing Balance and Reactions Static Standing Good Balance Ability Dynamic Standing Fair Balance Ability Device Used FWW Comments Other Balance Tests/ Pt had difficulty with weight shift performing 4-step Deviations/Treatment square test, able to maintain balance for 5 seconds : with EC standing EOB. M5 PT-IP Objective Assessments Start: 05/06/25 13:32 Freq: NEEDED Status: Active Protocol: Document 05/06/25 12:49 DCW (Rec: 05/06/25 13:51 DCW [id number]) Orientation Orientation/Cognition Level of Alertness Confusional State Safety Awareness Decreased Safety Awareness Comments Pt impulsive, tangential historian, easily side-tracked . Poor safety awareness Strength Lower Extremity Strength Assessment Bilaterally Impaired Hip 4 Knee 4- Comments Strength Comments Weakness as he fatigues, had more difficulty extending his knee to stand upright after walking around the room . M7 PT-IP Assessment and Plan Start: 05/06/25 13:32 Freq: NEEDED Status: Active Protocol: Document 05/06/25 12:49 DCW (Rec: 05/06/25 13:51 RICA [id number]) PT Summary Assessment and Plan Potential Rehabilitation Good Potential Status of Condition Unstable at Evaluation Summary Impairments Strength,Balance,Cognition,Gait,Activity Tolerance Assessment Summary Pt exhibiting overall fair balance with general weakness throughout lower extremities bilaterally. Pt exhibiting some decreased cognition with impulsive movements and attempting to get himself to restroom without assistance despite falls risk. Pt does display good ability to perform bed mobility, but very slow and tentative with sit<->stand secondary to feeling of knee weakness. Pt unlikely to be safe upon return home, pt reports his is having difficulty with back problems and it is difficult for her to assist him. Due to decreased safety awareness, impulsive behavior, LE weakness, and decreased balance, pt would likely benefit from stay at SNF rehab upon discharge until he improves his strength and decreases his falls risk. Goals Transfer Goal Independent Gait Goal Independent Gait Distance 200 Other Goals 4 steps SBA /c B rails Days to Meet Goals 5 Frequency of Treatment Frequency Of Once a Day Treatment Treatment Plan Physical Therapy Gait Training,Therapeutic Exercise,Balance Retraining, Treatment Plan Discharge Planning,Neuromuscular Re-ed Precautions Other Precautions Falls Recommendations To Nursing Amount of Assist 1 Person Assist Needed Discharge Recommendations PT Discharge SNF Rehab,Home vs SNF Recommendations
--- NOTE | 2025-05-06 13:49 | CM.DANOTE ---
Initial DCP Assessment Visit Note Reviewed EMR and team rounds for pt's medical status and updates. Went to meet with pt to introduce self and role, however he was found to be deeply asleep at the time of this visit. Pt resides modified ind. with his spouse in their own home in [place]. Spouse or family will transport him home once he's medically cleared for home d/c. Payor: Medicare PCP: Dr. Davison Pt is a 84 year-old M with a recent hx of lap R-hemicolectomy on 03/10/25 and C-diff infection. He presented to the ED via EMS with worsening diarrhea and weakness for the past 3-days. CT abd/pelvis showed colitis, gallstones, and gallbladder wall thickening. Stool sample came back positive for C-diff again. He was started on IV Zosyn, but switched to oral Vancomycin once the C-diff was confirmed. Pt was started on IV antibiotics, surgery was consulted, and Dr. Rush did not feel that there was a surgical need at this time. DCP will continue to monitor for final d/c needs and recommendations. Discharge Planning/Care Management Advanced directive, confirm from FAMILY Start: 05/05/25 08:37 Freq: Q24H Status: Active Protocol: Document 05/05/25 11:40 YAD (Rec: 05/05/25 11:40 YAD [id number]) Advance Directive, confirm on record Time 11:40 Person contacted Pt Copy received No Document 05/06/25 11:00 YAD (Rec: 05/06/25 12:59 YAD [id number]) Advance Directive, confirm on record Time 11:40 Person contacted Pt Copy received No Time 12:59 Person contacted Pt Advanced directive No available on record CM Discharge Assessment Start: 05/05/25 06:41 Freq: Status: Active Protocol: Document 05/06/25 13:45 DPL (Rec: 05/06/25 13:48 DPL [id number]) Discharge Planning Assessment Assigned Discharge OBED [place] Batch Mixer Operator Provider Dr. Davison Insurance Medicare Advance Directives? Yes Advance Directives No on File History Provided By Patient,Medical Record Has Patient been No admitted in last 30 days? Prior Living House Arrangements Household Members spouse Type of Relies on Others transporation used prior to admit Independent with ADL No: modified independent 's Is patient alert and pt was found to be deeply asleep during this visit oriented? Needs Assistance Home Chores / Shopping With Caregiver for No Another Comment u/k Comment Pending final PT/OT recs Barriers to No Discharge Discharge Plan Home Referrals Initiated None needed Additional Comment Pending final therapy recs. Review Status In Process Please Provide Date 05/06/25 Initial DC Assessment Was Performed
[2025-05-06 15:12] VITALS: BP 133/54; PULSE 81; RESP 15; TEMP 37.3; O2SAT 90
--- NOTE | 2025-05-06 15:29 | OT.IP.EVAL ---
Past Medical History (Last Reviewed 05/05/25 @ 06:46 by José Miguel Davison MD) Atherosclerosis of aorta Benign prostatic hyperplasia C. difficile colitis Chicken pox Esophageal reflux (07/07/03) Hypertension (02/23/11) Hypogonadism in male (05/31/17) Lower urinary tract symptoms (LUTS) Lung nodule (06/12/16) Measles Mixed hyperlipidemia (06/03/15) Monoclonal gammopathy Mumps Paraganglioma Peripheral neuropathy Proctocolitis Right bundle branch block Seasonal allergies Surgical History (Last Reviewed 05/05/25 @ 06:46 by José Miguel Davison MD) History of lung surgery (~2011) Status post left hemicolectomy Occupational Therapy Inpatient Evaluation/Re-Eval M1 PT/OT-IP Prior Functional Status Start: 05/06/25 13:32 Freq: NEEDED Status: Active Protocol: Document 05/06/25 14:57 [facility] (Rec: 05/06/25 15:29 [facility] Desktop) Medical Review Prior Functional Status Medical History Yes Reviewed Communication Able to communicate needs Mobility and Gait Has walker and cane, states he uses it when he needs it, unable to relay what circumstances make him feel he needs it. Pt admits to having to use devices more since his fall 3 weeks ago. Pt states he and his share the FWW and SPC. Activities of Daily Pt states able to do his ADL needs and assist with Living and IADL's cooking, bills and medications . Prior Functional Pt feels that he has gone down hill in the past year. Level (Other details Pt had mary-colectomy for colon CA part of ) April. Pt states he has neuropathy in his feet. Social History Household Members spouse Living Arrangements House Number of Floors ( Two Floors Floors) Number of Stairs To 3 steps, B railing Enter/Railing? 6 steps, landing, 6 steps to the bedroom with right rail going up. Home Equipment Front Wheel Walker,Straight Cane Additional Social Pt has a 60lb Black Mouth Cur that he no longer walks History Comment since his fall 3 weeks ago. M2 OT-IP Current Condition Start: 05/06/25 14:57 Freq: Status: Active Protocol: Document 05/06/25 14:57 [facility] (Rec: 05/06/25 15:29 [facility] Desktop) Occupational Therapy Current Condition Current Condition Evaluation Date 05/06/25 Treatment Diagnosis C-diff, weakness Diagnosis Onset Date 05/05/25 M3 OT- IP Subjective and Pain Start: 05/06/25 14:57 Freq: Status: Active Protocol: Document 05/06/25 14:57 [facility] (Rec: 05/06/25 15:29 [facility] Desktop) OT- Subjective Occupational Therapy Visit Type Type Initial Evaluation Visit Start Time 14:10 Visit Stop Time 14:50 Occupational Therapy Visit Comments Patient Comments Pt agreed to get up. Patient/Caregiver TO get better and agreed to go to skilled rehab if his Goals insurance will cover it. M4 OT- IP ADL's Start: 05/06/25 14:57 Freq: Status: Active Protocol: Document 05/06/25 14:57 [facility] (Rec: 05/06/25 15:29 [facility] Desktop) OT [id number] Comments OT Self-Feeding Not at meal time. Comments OT ADL-Grooming Comments OT Grooming Comments Not performed. OT ADL-Oral Care Comments Oral Care Comments Not performed. M5 OT- IP IADL's Start: 05/06/25 14:57 Freq: Status: Active Protocol: Document 05/06/25 14:57 [facility] (Rec: 05/06/25 15:29 [facility] Desktop) OT-Instrumental Activities of Daily Living Medication Management Medication Caregiver Administers Management Money Management Money Management Caregiver Provides Assistance Meal Preparation Meal Preparation Caregiver Provides Assist Folder Stitcher Operator Folder Stitcher Operator Caregiver Provides Assist Driving Driving Concerns Identified Regarding Safety M6 OT- IP Functional Cognition Start: 05/06/25 14:57 Freq: Status: Active Protocol: Document 05/06/25 14:57 [facility] (Rec: 05/06/25 15:29 [facility] Desktop) Cognitive Factors Limiting Selfcare Function Cognitive Ability Level of Alertness Alert,Confusional State Patient Orientation Name,Age,Birthday,Place,Situation Attention Span Capable of Focused Attention,Unable to Sustain Ability Attention Ability to Follow Able to Follow One Step Commands with Increased Time, Commands Able to Follow One Step Commands with Repetition Memory Description Short Term Impaired Problem Solving Unable to Identify Errors,Needs Assist to Identify Ability Solutions Cognitive Comments Cognitive Assessment Pt will benefit from SLUMS tomorrow. Pt thought it was Comments August and 1999? Pt admit that his overall physical and mental well being has progressively declined in the past year. Pt needing MAX vc for safety awareness to push up from the bed to stand and reach back to reach back to the bed prior to sitting down. Pt open to going to skilled rehab if it is covered by his insurance. OT- Vision and Hearing OT- Hearing Assessment OT- Hearing WFL Assessment OT- Vision Assessment Visual Acuity Glasses All The Time Visual Attentiveness WFL Occular Pursuits WFL Visual Convergence Impaired Visual Saucedo WFL Vision Assessment Pt needing cues to move his eyes. Pt not able to Comments converge his eyes. M7 OT- IP Mobility and Balance Start: 05/06/25 14:57 Freq: Status: Active Protocol: Document 05/06/25 14:57 [facility] (Rec: 05/06/25 15:29 [facility] Desktop) OT- Bed Mobility Assessment Supine to Sit Supine to Sit Assist Moderate Assistance Sit to Supine Sit to Supine Assist Moderate Assistance Scooting Scooting to Edge of Contact Guard Assistance Bed OT-Transfer Assessment Sit to and From Stand Sit to and from Contact Guard Assistance Stand Transfers Transfer Ability Contact Guard Assistance,Minimal Assistance Technique Transfer Destination Bed Transfer Technique Stand Step Pivot Devices Transfer Assistive None,Gait Belt,Front Wheeled Walker Devices Comments Mobility Comments Pt with HOB down has difficulty to use his core to help get up and having to use a lot of momentum and eventually MODA to help get his trunk upright. Getting back to bed pt needing assist to help get his legs back into bed. Pt has a very weak core which is probably been affected by his mary-colectomy in April. Pt will benefit from bed rail at home. Pt states at times needing his to help pull him up to get out of bed and also to help get his legs back into bed. Per pt, his has been having increased back trouble . Pt having to use the back of his legs on the bed to assist to stand and needing CGA. Pt heavy use of his arms on the bed to help stand and lower himself down. Pt close SBA with the FWW and without needing CGA and TAHIR. Pt takes small side steps without the FWW and very unsteady. OT- Balance Assessment Sitting Balance and Reactions Static Sitting Normal Balance Ability Dynamic Sitting Good Balance Ability Standing Balance and Reactions Static Standing Fair Balance Ability Dynamic Standing Poor without a device. Balance Ability M8 OT- IP Objective Assessments Start: 05/06/25 14:57 Freq: Status: Active Protocol: Document 05/06/25 14:57 [facility] (Rec: 05/06/25 15:29 [facility] Desktop) OT Gross Range of Motion Upper Extremity Range of Motion ROM Impairments grossly WFL OT Strength Comments Strength Comments BUE 4/5 to 4+/5 OT- Coordination Assessment Upper Extremity Finger to Nose Test Within Functional Limits M9 OT- IP Assessment and Plan Start: 05/06/25 14:57 Freq: Status: Active Protocol: Document 05/06/25 14:57 [facility] (Rec: 05/06/25 15:29 [facility] Desktop) OT Summary Assessment and Plan Potential Rehabilitation Good Potential Analytic Complexity Moderate at Evaluation Summary OT Impairments Pain,Strength,Balance,Functional Cognition,Functional Mobility,Self-Feeding,Grooming,Dressing,Toileting, Bathing,Toilet Transfers,Shower Transfers,Activity Tolerance Progress Towards Slow Progress due to Medical Issues,Slow Progress due Goals to Activity Tolerance,Slow Progress due to Cognition Assessment Summary Pt MOD complexity and main barriers are decrease activity tolerance, core strength, steps, and not thinking well at this time. Pt thought is was August and 1999. To assess pt for SLUMS tomorrow as hopefully pt will be feeling a but better. Pt has decreased core strength and therefore having difficulties with bed mobility and transitions. Pt will benefit from skilled rehab. Per pt, his has been having increased trouble with her back. Pt admits that his has to help him up from the bed and also back into bed. Pt will to go to skilled rehab if his insurance covers it. Otherwise, pt will benefit from 24 /7 available assist at home and home health versus outpt PT. Goals Self-Feeding Goal Independent Grooming Goal Independent Dressing Goal Independent Toileting Goal Independent Bathing Goal Independent Toilet Transfer Goal Independent Shower Transfer Goal Independent Days to Meet Goals 10 Frequency of Treatment Other frequency 5x/week Treatment Plan OT Treatment Plan ADL Training,Functional Cognition Training,Functional Mobility,Patient/Family Education,Discharge Planning Other Treatment SLUMS Recommendations and Next Treatment Focus Discharge Recommendations OT Discharge Home with 24/7 Assist Available,Home Health,SNF Rehab, Recommendations Home vs SNF Home Equipment Needs FWW, shower chair, bed rail Transportation Needs Private Vehicle at Discharge
[2025-05-06 19:00] VITALS: O2SAT 97
[2025-05-06] MEDS: ACETAMINOPHEN 325 MG TABLET 650 MG PO (19:02)
[2025-05-06 20:00] VITALS: BP 138/69; PULSE 75; RESP 17; TEMP 36.6; O2SAT 97
[2025-05-07] MEDS: VANCOMYCIN 125 MG CAPSULE PO ×4 (03:47→20:50)
[2025-05-07 05:11] LABS: Blood Urea Nitrogen 16 mg/dL (9-20); Calcium 7.9 mg/dL (8.4-10.2); Carbon Dioxide 20 mmol/L (22-32); Chloride 107 mmol/L (98-107); Estimated Glomerular Filt Rate > 60 mL/min (>60); Glucose 91 mg/dL (70-99); HEMOLYSIS < 15 (0-50); Potassium 3.5 mmol/L (3.4-5.1); Sodium 135 mmol/L (137-145)
[2025-05-07 08:00] VITALS: O2SAT 96
--- NOTE | 2025-05-07 08:20 | PM.PN.IH.1 ---
Subjective Subjective Date Patient Seen: 05/07/25 Time Patient Seen: 08:20 Interval history: Patient is still having frequent loose stools. Worked with physical therapy yesterday as well as occupational therapy. There maybe some cognitive impairment ongoing. Patient seems to be doing well physically needed only General standby assist although is very impulsive and makes poor decisions Says his mouth is dry this morning is trying to stay hydrated but does not have much in the way of an appetite Exam Vital Signs (past 8 hours): Oxygen Delivery Method Room Air Oxygen Flow Rate 0 Objective Labs 05/06/25 04:18 05/07/25 04:03 Labs: Laboratory Results - last 24 hr 05/07/25 04:03 Sodium 135 L Potassium 3.5 Chloride 107 Carbon Dioxide 20 L BUN 16 Creatinine 1.00 Estimated GFR > 60 BUN/Creatinine Ratio 16.0 Glucose 91 Calcium 7.9 L [facility] Medical History C. difficile colitis Proctocolitis Right bundle branch block Peripheral neuropathy Monoclonal gammopathy Atherosclerosis of aorta Paraganglioma Lower urinary tract symptoms (LUTS) Seasonal allergies Mumps Measles Chicken pox Benign prostatic hyperplasia Esophageal reflux (07/07/03) Hypogonadism in male (05/31/17) Lung nodule (06/12/16) Mixed hyperlipidemia (06/03/15) Hypertension (02/23/11) Surgical History Status post left hemicolectomy History of lung surgery (~2011) Social History marital status: number of children: 1 household members: spouse lives independently: Yes caregiver/support person: No housing: house pets and animals: No education level: college occupational status: other Previous occupational history: [employer] travel history: recurrent leisure activities: other Smoking Status: Former smoker Tobacco: How many years used: 30 Smokeless tobacco user: other quit status: quit date established second hand exposure: No alcohol intake: current substance use type: does not use Assessment & Plan Assessment & Plan narrative: 1. C diff colitis-continue with oral vancomycin. Continue with current diet. I am going to add back some IV fluids given the persistent nature of the diarrhea so that we do not end up with a volume depleted/dehydration state. Not surprised it is taking several days to really get his diarrhea to begin to resolve which is the usual course for this disease 2. Generalized weakness-plan to recheck labs tomorrow and restart some IV fluids today. Hopefully as his colitis improves he will improve overall as well and I think he is better today than he was day of admission 3. Hypertension-blood pressure numbers seem very good. No reason for intervention at this time. 4. Colon cancer-not an active issue at this time 5. Disposition-patient likely to be able to return home when felt to be medically stable from mostly a GI/colitis standpoint. Hopefully his cognition improves as he improves overall as well. Time-Based Coding :: [TOTAL MINUTES] spent with patient and on the chart (including review of chart, obtaining history, exam, reviewing outside data, placing orders, documenting exam and treatment plan, and counseling patient) on [DATE]. PROFEE Product Development Intern Document charge(s): Yes Charge Codes Subsequent inpatient/observation care: [id number]
[2025-05-07 08:43] VITALS: BP 123/66; PULSE 81; RESP 18; TEMP 36.8; O2SAT 99
[2025-05-07] MEDS: ENOXAPARIN 40 MG/0.4 ML SYRINGE SUBCUT (09:19)
[2025-05-07] MEDS: SODIUM CHLORIDE 0.9% 1,000 ML 100 ML IV ×2 (09:19→21:45)
--- NOTE | 2025-05-07 10:26 | DIET.PN1 ---
Dietary Progress Note Assessment: f/u Tolerating Ensure+ now. Ate portion of breakfast and 50% of Ensure this morning. Discussed doing Ensure+ BID while here and reviewed again doing the Ensure supplement at home BID or similar composition nutrient snacks until return of normal weight, 170#. Ht: 182.88 cm Wt: 70.94 kg BMI: 20.9 UBW: 170# Last BM: 05/07/25 (05/07/25 07:00) MNA: 9 Chase Score: 19 Diet: 05/06/25 Lunch Soft,Low Fiber (Low residue) Diet Diet Modifications: Food Texture: Level 7 - Regular Liquid Consistency: Level 0 - Thin Nutrition Percent Meal Consumed 50% 05/06/25 11:09 Percent Meal Consumed 25% 05/05/25 18:00 Labs: RBC 3.03 X10^6/uL (4.5-5.9) L 05/06/25 04:18 Hgb 9.1 g/dL (13.5-17.5) L 05/06/25 04:18 Hct 27.7 % (41-53) L 05/06/25 04:18 Creatinine 1.00 mg/dL (0.66-1.25) 05/07/25 04:03 Lactate 1.5 mmol/L (0.7-2.1) 05/05/25 03:10 Electronically Signed by: Amparo Shabazz 05/07/25 10:26 Clinical Dietitian [address] [address]
--- NOTE | 2025-05-07 11:05 | PT.IPTN ---
Current Diagnoses Enterocolitis due to Clostridium difficile, recurrent (05/07/25) Physical Therapy Treatment Note M2 PT-IP Current Condition Start: 05/06/25 13:32 Freq: NEEDED Status: Active Protocol: Document 05/06/25 12:49 [facility] (Rec: 05/06/25 13:51 [facility] [id number]) Physical Therapy Current Condition Current Condition Evaluation Date 05/06/25 Treatment Diagnosis C-diff, weakness Onset Date 05/05/25 M3 PT-IP Subjective Start: 05/06/25 13:32 Freq: NEEDED Status: Active Protocol: Document 05/07/25 11:05 AB (Rec: 05/07/25 12:43 AB [id number]) Subjective Physical Therapy Visit Type Type Treatment Note Visit Start Time 11:05 Visit Stop Time 11:45 Number of DIGITAL INTERN Visits 0 Physical Therapy Visit Comments Patient Comments agreeable to do PT; want to walk out in the hallway M4 PT-IP Mobility and Gait Start: 05/06/25 13:32 Freq: NEEDED Status: Active Protocol: Document 05/07/25 11:05 AB (Rec: 05/07/25 12:43 AB [id number]) PT-Bed Mobility Assessment Sit to Supine Sit to Supine Moderate Assistance,1 Person Assistance,Head of Bed Elevated,Bedrails PT-Transfer Assessment Sit to and From Stand Sit to and from Moderate Assistance,Maximum Assistance,1 Person Stand Assistance,Use of Upper Extremities Equipment Transfer Assistive Gait Belt,Front Wheeled Walker Device Orthotic/Prosthetic No Devices or Brace: Transfers Transfer Destination Toilet Transfer Technique ambulated Transfer Ability Level of Assist Contact Guard Assistance,1 Person Assistance,Use of Upper Extremities Comments Mobility Comments pt sitting on the chair and agreeable to do PT. sit to stand from the chair mod to max A and max cues. pt stated that his legs feels like jello. pt found to be soiled and instructed to ambulate to the toilet and completed CGA using fWW. Mod to max A for controlled descent to the toilet using grab bar. sit to stand from the commode using grab bar mod A and pt was able to maintain standing CGA while NAC assisted with hygiene care. pt then stated that he has to sit back down and void. mod to max A for sitting down. sit to stand mod A with use of grab bar. able to stand CGA while assisted again with hygiene care and brief management. pt ambulated towards the sink using FWW CGA. able to maintain standing CGA while completing handwashing. pt ambulated in the hallway using FWW ~ 300 ft with standing rest breaks. pt gets easily distracted affecting standing balance and cued for safety. pt requested to go back to bed. sit to supine mod A for elevated LE to bed. positioned pt in bed. call light and table placed within reach. Gait Assessment Gait Gait Assistance Contact Guard Assist Required: Distance (Feet) 300 Able to Maintain Yes Weight Bearing Status During Gait Assistive Devices Assistive Device Gait Belt,Front Wheeled Walker Orthotic/Prosthetic No Devices or Brace: Gait Deviations General Gait Pattern Decreased Stride Length,Decreased Feet Clearance,Step- to Gait Factors Limiting Gait Function Factors Limiting Decreased Activity Tolerance,Decreased Strength, Gait Function Difficulty Following Directions,Limited Range of Motion ,Poor Balance,Poor Safety Awareness M5 PT-IP Objective Assessments Start: 05/06/25 13:32 Freq: NEEDED Status: Active Protocol: Document 05/06/25 12:49 [facility] (Rec: 05/06/25 13:51 [facility] [id number]) Orientation Orientation/Cognition Level of Alertness Confusional State Safety Awareness Decreased Safety Awareness Comments Pt impulsive, tangential historian, easily side-tracked . Poor safety awareness Strength Lower Extremity Strength Assessment Bilaterally Impaired Hip 4 Knee 4- Comments Strength Comments Weakness as he fatigues, had more difficulty extending his knee to stand upright after walking around the room . M6 PT-IP Treatment Start: 05/06/25 13:32 Freq: NEEDED Status: Active Protocol: Document 05/07/25 11:05 AB (Rec: 05/07/25 12:43 AB [id number]) Physical Therapy Treatment Education Education Provided Safety M7 PT-IP Assessment and Plan Start: 05/06/25 13:32 Freq: NEEDED Status: Active Protocol: Document 05/07/25 11:05 AB (Rec: 05/07/25 12:43 AB [id number]) PT Summary Assessment and Plan Potential Rehabilitation Fair Potential Summary Impairments Pain,ROM,Strength,Balance,Coordination,Sensation,Tone, Cognition,Bed Mobility,Transfers,Gait,Activity Tolerance Progress Towards Slow Progress due to Medical Issues,Slow Progress due Goals to Activity Tolerance Assessment Summary pt requiring mod to max A for sit<>stand but only requiring CGA for ambulation using FWW. pt with decrease safety awareness affecting mobility independence. d/c plan depending on progress and if spouse will be able to assist pt. will continue to assess. Goals Bed Mobility Goal Independent Transfer Goal Independent,Front Wheeled Walker,Four Wheeled Walker Gait Goal Independent,Front Wheel Walker,Four Wheel Walker Gait Distance 200 Other Goals improve transfers/ambulation using LRAD/without AD >300 ft mod I 4 steps SBA /c B rails Days to Meet Goals 10 Frequency of Treatment Frequency Of Once a Day Treatment Treatment Plan Physical Therapy Bed Mobility Training,Transfer Training,Gait Training, Treatment Plan Therapeutic Exercise,Balance Retraining,Discharge Planning,Neuromuscular Re-ed,Manual Therapy Precautions Other Precautions falls Recommendations To Nursing Amount of Assist 1 Person Assist Needed Discharge Recommendations PT Discharge Home with 25/02 Assist Available,Home Health,SNF Rehab, Recommendations Home vs SNF Equipment Needed for FWW if not safe with 4WW Home Before Discharge Transportation Needs Private Vehicle,Wheelchair/Cabulance at Discharge - PT assist 1
--- NOTE | 2025-05-07 11:37 | CM.DPNOTE ---
DCP Continued: Reviewed EMR and team rounds for pt?s medical status. Per Provider, pt nearing medical stability but still some cognition concerns that is improving. No discharge needs identified at this time. Plan: Anticipating discharge home with family to transport on 05/08 or when medically cleared. CM Team will continue to follow for coordination of discharge plans. JOY Mac
[2025-05-07 13:10] LABS: C difficie Toxins A and B, EIA Positive (Negative)
[2025-05-07] MEDS: ACETAMINOPHEN 325 MG TABLET 650 MG PO (14:08)
[2025-05-07 14:16] VITALS: BP 134/71; PULSE 74; RESP 15; TEMP 37.2; O2SAT 100
[2025-05-07 18:00] VITALS: BP 159/63; PULSE 77; RESP 15; TEMP 36.6; O2SAT 100
[2025-05-07 19:00] VITALS: BP 136/73; PULSE 69; RESP 18; TEMP 36.9; O2SAT 98
[2025-05-08] MEDS: VANCOMYCIN 125 MG CAPSULE PO ×4 (01:27→21:14)
[2025-05-08 08:00] VITALS: BP 132/75; PULSE 72; RESP 19; TEMP 36.4; O2SAT 99
--- NOTE | 2025-05-08 08:52 | P.PN_ITS ---
Subjective Subjective Date Patient Seen: 05/08/25 Time Patient Seen: 08:52 Interval history: Patient states he had a good night. Up on night because of problems with his IV fluid. Eight is in breakfast this morning. Still having loose stools. No pain or cramping. Expresses frustration about having diarrhea and reoccurrence of C diff. Patient receiving oral vancomycin. Vital signs have been stable. Afebrile. Exam Vital Signs (past 8 hours): Oxygen Delivery Method Room Air Oxygen Flow Rate 0 Narrative Exam Narrative: Gen.: Alert good historian HEENT: Pupils equal round and reactive or mucosa is moist Cardio: S1-S2 regular rate and rhythm Respiratory: Normal respiratory effort lungs are clear Abdomen: Soft nontender Extremities: Warm dry perfused Objective Labs 05/06/25 04:18 05/07/25 04:03 Labs: Laboratory Results - last 24 hr 05/05/25 04:30 C. diff Toxin A&B (EIA) Positive [facility] Medical History C. difficile colitis Proctocolitis Right bundle branch block Peripheral neuropathy Monoclonal gammopathy Atherosclerosis of aorta Paraganglioma Lower urinary tract symptoms (LUTS) Seasonal allergies Mumps Measles Chicken pox Benign prostatic hyperplasia Esophageal reflux (07/07/03) Hypogonadism in male (05/31/17) Lung nodule (06/12/16) Mixed hyperlipidemia (06/03/15) Hypertension (02/23/11) Surgical History Status post left hemicolectomy History of lung surgery (~2011) Social History marital status: number of children: 1 household members: spouse lives independently: Yes caregiver/support person: No housing: house pets and animals: No education level: college occupational status: other Previous occupational history: [employer] travel history: recurrent leisure activities: other Smoking Status: Former smoker Tobacco: How many years used: 30 Smokeless tobacco user: other quit status: quit date established second hand exposure: No alcohol intake: current substance use type: does not use Assessment & Plan Assessment and plan (1) Colitis: Status: Acute Plan C diff colitis continue with oral vancomycin diet as tolerated. Going to go ahead and stopped the IV fluids this morning as he is hydrating well. Monitor signs and symptoms. Anticipate discharge 20/4 to 48 hours once symptoms improve and patient ready for home. Vital signs have been stable afebrile. Not in significant pain BPH. Patient on alfuzosin May have some mild urinary retention. We will go ahead and restart this. Stop his IV fluids. Hypertension patient is on antihypertensive blood pressure looks good he will be continued on his propranolol. Hyperlipidemia patient is on Crestor this will be continued as well Generalized weakness. Improving. Disposition and plan. Discharge home probably on Saturday Time-Based Coding :: [TOTAL MINUTES] spent with patient and on the chart (including review of chart, obtaining history, exam, reviewing outside data, placing orders, documenting exam and treatment plan, and counseling patient) on [DATE]. PROFEE Customer Marketing Assistant Document charge(s): Yes Charge Codes Subsequent inpatient/observation care: [id number]
[2025-05-08 09:04] LABS: Add Manual Diff / Slide Review NO; Hematocrit 28.6 % (41-53); Hemoglobin 9.5 g/dL (13.5-17.5); Lymphocytes Absolute Auto 800 /uL (1100-4500); Mean Corpuscular HGB Conc 33.4 % (30-36); Mean Corpuscular Hemoglobin 30.5 PG (26-34); Mean Corpuscular Volume 91.3 fL (80-100); Platelet Count 95 X10^3/uL (150-400)
[2025-05-08] MEDS: PROPRANOLOL 10 MG TABLET PO (09:13)
[2025-05-08] MEDS: ENOXAPARIN 40 MG/0.4 ML SYRINGE SUBCUT (09:13)
[2025-05-08 09:17] LABS: Blood Urea Nitrogen 13 mg/dL (9-20); Calcium 7.8 mg/dL (8.4-10.2); Carbon Dioxide 21 mmol/L (22-32); Chloride 107 mmol/L (98-107); Estimated Glomerular Filt Rate > 60 mL/min (>60); Glucose 118 mg/dL (70-99); HEMOLYSIS < 15 (0-50); Potassium 3.3 mmol/L (3.4-5.1); Sodium 136 mmol/L (137-145)
[2025-05-08 12:00] VITALS: BP 122/57; PULSE 61; RESP 18; TEMP 36.7; O2SAT 99
--- NOTE | 2025-05-08 12:30 | CM.DPC ---
Addendum entered by OBED Adler 05/08/25 14:11: ADD: Met bedside with pt and explained role and he had some questions about Good Rx and outpt meds and then updated him that due to his assist needs right now recommendation is SNF at d/c and spouse requesting referral to [facility]. Pt hesitant about SNF but confirms that spouse has spinal injury and unable to physically assist him at home. Discussed the benefits to SNF since pt not currently independent. Pt acknowledged understanding and will meet bedside with pt and spouse when she arrives tomorrow Sun to discuss further. BF Original Note: DCP Cont: Per MD, pt making slow progress and may need another 1-2 days before stable for discharge. Per PT/OT, pt able to ambulate with FWW CGA but max A for sit to stand and assist with ADLs and HH vs SNF pending progress. SW spoke to pt's spouse who is requesting SNF rehab at d/ and discusssed that since pt switched to INPT status on 05/07 he would need to remain in the hospital until Mon 05/10 if he has medical need to remain in the hospital to qualify for Medicare to cover the cost of SNF. SW also discussed SNF would need to have private/iso room available due to CDiff and spouse acknowledges understanding and requests referral be first made to [facility] for [facility] rehab. SW made referral to [facility] via secure email and requested review. PASRR done in anticipation of SNF at d/. OBED Adler
--- NOTE | 2025-05-08 14:30 | PT.IPTN ---
Current Diagnoses Enterocolitis due to Clostridium difficile, recurrent (05/07/25) Noninfective gastroenteritis and colitis, unspecified (05/07/25) Physical Therapy Treatment Note M2 PT-IP Current Condition Start: 05/06/25 13:32 Freq: NEEDED Status: Active Protocol: Document 05/06/25 12:49 DCW (Rec: 05/06/25 13:51 DCW [id number]) Physical Therapy Current Condition Current Condition Evaluation Date 05/06/25 Treatment Diagnosis C-diff, weakness Onset Date 05/05/25 M3 PT-IP Subjective Start: 05/06/25 13:32 Freq: NEEDED Status: Active Protocol: Document 05/08/25 14:30 AB (Rec: 05/08/25 17:58 AB Desktop) Subjective Physical Therapy Visit Type Type Treatment Note Visit Start Time 14:30 Visit Stop Time 15:17 Number of FABRICATION ENGINEER Visits 0 Physical Therapy Visit Comments Patient Comments agreeable to do PT M4 PT-IP Mobility and Gait Start: 05/06/25 13:32 Freq: NEEDED Status: Active Protocol: Document 05/08/25 14:30 AB (Rec: 05/08/25 17:58 AB Desktop) PT-Bed Mobility Assessment Supine to Sit Supine to Sit Minimal Assistance,1 Person Assistance,Head of Bed Elevated,Bedrails PT-Transfer Assessment Sit to and From Stand Sit to and from Minimal Assistance,Moderate Assistance,1 Person Stand Assistance,Use of Upper Extremities Equipment Transfer Assistive Gait Belt,Front Wheeled Walker Device Orthotic/Prosthetic No Devices or Brace: Transfers Transfer Destination Toilet Transfer Technique ambulated Transfer Ability Level of Assist Contact Guard Assistance,1 Person Assistance,Use of Upper Extremities Comments Mobility Comments pt in bed and agreeable to do PT. supine to sit min A and cues. sit to stand min A and requested to use the toilet. pt ambulated to the toilet using FWW CGA. Clarified with pt if he as a 4WW or a FWW at home and stated that he has a FWW. pt required mod A for controlled descent to the toilet using grab bar. pt needed assistance with hygiene care and brief management. sit to stand from the toilet min A using grab bar. ambulated towards the sink using FWW CGA and cues for safety. able to maintain standing CGA while completing handwashing. pt can be impulsive. pt agreed to walk in the hallway and completed ~ 300 ft using FWW CGA but occasional only needed SBA. pt with decrease safety awareness and easily gets distracted affecting mobility level. pt ambulated to chair. positioned pt on the chair. call light and table placed within reach. chair alarm on. Gait Assessment Gait Gait Assistance Standby Assistance,Contact Guard Assist Required: Distance (Feet) 300 Able to Maintain Yes Weight Bearing Status During Gait Assistive Devices Assistive Device Gait Belt,Front Wheeled Walker Orthotic/Prosthetic No Devices or Brace: Gait Deviations General Gait Pattern Decreased Stride Length,Decreased Feet Clearance Factors Limiting Gait Function Factors Limiting Decreased Activity Tolerance,Decreased Strength,Poor Gait Function Safety Awareness M5 PT-IP Objective Assessments Start: 05/06/25 13:32 Freq: NEEDED Status: Active Protocol: Document 05/06/25 12:49 DCW (Rec: 05/06/25 13:51 DCW [id number]) Orientation Orientation/Cognition Level of Alertness Confusional State Safety Awareness Decreased Safety Awareness Comments Pt impulsive, tangential historian, easily side-tracked . Poor safety awareness Strength Lower Extremity Strength Assessment Bilaterally Impaired Hip 4 Knee 4- Comments Strength Comments Weakness as he fatigues, had more difficulty extending his knee to stand upright after walking around the room . M6 PT-IP Treatment Start: 05/06/25 13:32 Freq: NEEDED Status: Active Protocol: Document 05/08/25 14:30 AB (Rec: 05/08/25 17:58 AB Desktop) Physical Therapy Treatment Education Education Provided Safety M7 PT-IP Assessment and Plan Start: 05/06/25 13:32 Freq: NEEDED Status: Active Protocol: Document 05/08/25 14:30 AB (Rec: 05/08/25 17:58 AB Desktop) PT Summary Assessment and Plan Potential Rehabilitation Fair Potential Summary Impairments Pain,ROM,Strength,Balance,Coordination,Sensation,Tone, Cognition,Bed Mobility,Transfers,Gait,Activity Tolerance Progress Towards Slow Progress - Other Goals Assessment Summary pt improving slowly with mobility and continues to require min A for supine to sit with HOB elevated, min to mod A for sit to stand and SBA to CGA for ambulation using FWW. pt needing cues with all tasks and has decrease safety awareness. d/c plan depending on assistance available at home but at this time will benefit from SNF rehab. will continue to assess. Goals Bed Mobility Goal Independent Transfer Goal Independent,Front Wheeled Walker Gait Goal Independent,Front Wheel Walker Gait Distance 200 Other Goals improve transfers/ambulation using LRAD/without AD >300 ft mod I 4 steps SBA /c B rails Days to Meet Goals 10 Treatment Plan Physical Therapy Bed Mobility Training,Transfer Training,Gait Training, Treatment Plan Therapeutic Exercise,Balance Retraining,Discharge Planning,Neuromuscular Re-ed,Manual Therapy Other stair climbing Recommendations and Next Treatment Focus Precautions Other Precautions falls, enteric contact precautions Recommendations To Nursing Amount of Assist 1 Person Assist Needed Discharge Recommendations PT Discharge Home with 25/02 Assist Available,Home Health,SNF Rehab, Recommendations Home vs SNF Transportation Needs Private Vehicle,Wheelchair/Cabulance at Discharge - PT assist 1
[2025-05-08 18:00] VITALS: BP 143/65; PULSE 69; RESP 17; TEMP 36.9; O2SAT 100
[2025-05-09 01:33] VITALS: BP 147/75; PULSE 66; RESP 17; TEMP 36.7; O2SAT 99
[2025-05-09] MEDS: VANCOMYCIN 125 MG CAPSULE PO ×2 (02:45→08:47)
[2025-05-09 06:00] VITALS: BP 142/62; PULSE 53; RESP 18; TEMP 36.7; O2SAT 98
[2025-05-09 07:00] VITALS: O2SAT 98
--- NOTE | 2025-05-09 08:21 | PM.DS.IH.1 ---
History of Present Illness History of Present Illness Chief complaint: Weakness Discharge Providers Provider Date of admission: 05/07/25 08:22 Discharge Date: 05/09/25 Primary care physician: José Miguel Davison MD Consults: 05/05/25 08:36 Consult to Dietitian, Adult Routine Comment: Reason For Exam: weight loss > 10 lbs 05/06/25 08:13 Consult to Occupational Therapy Evaluate & Treat Comment: Physician Instructions: Evaluate and treat Consult to Physical Therapy Evaluate & Treat Comment: Physician Instructions: Evaluate and Treat Discharge provider: Alexey Pineda MD Summary Hospital Course Discharge Diagnosis: C diff colitis BPH Hypertension Hyperlipidemia Hospital Course: Patient was admitted to the hospital after diagnosis of C diff. Recent colon surgery due to colon cancer. This is recurrence of C diff which happened after his cancer surgery. He was on oral vancomycin went home had significant improvement. And now it has come back. He has now been on oral vancomycin for 3 days in the hospital this morning he is eating ambulating tolerating diet. He says he is ready to go home. His bowel movements are significantly improved. Exam Vital Signs (past 8 hours): - 05/09/25 01:33 05/09/25 06:00 Temperature 98.1 F 98.0 F Pulse Rate 66 53 L Respiratory Rate 17 18 Blood Pressure 147/75 H 142/62 H Pulse Oximetry 99 98 Oxygen Flow Rate 0 0 Oxygen Delivery Method Room Air Oxygen Flow Rate 0 Objective Labs 05/08/25 08:55 05/08/25 08:55 Labs: Laboratory Results - last 24 hr 05/08/25 08:55 WBC 7.6 RBC 3.13 L Hgb 9.5 L Hct 28.6 L MCV 91.3 MCH 30.5 MCHC 33.4 RDW 17.9 H Plt Count 95 L Neut % (Auto) 51.1 Lymph % (Auto) 10.8 L [place] % (Auto) 37.5 H Eos % (Auto) 0.3 L Baso % (Auto) 0.3 Neut # (Auto) 3900 Lymph # (Auto) 800 L [place] # (Auto) 2800 H Eos # (Auto) 0 Baso # (Auto) 0 Sodium 136 L Potassium 3.3 L Chloride 107 Carbon Dioxide 21 L BUN 13 Creatinine 0.93 Estimated GFR > 60 BUN/Creatinine Ratio 14.0 Glucose 118 H Calcium 7.8 L [facility] Medical History C. difficile colitis Proctocolitis Right bundle branch block Peripheral neuropathy Monoclonal gammopathy Atherosclerosis of aorta Paraganglioma Lower urinary tract symptoms (LUTS) Seasonal allergies Mumps Measles Chicken pox Benign prostatic hyperplasia Esophageal reflux (07/07/03) Hypogonadism in male (05/31/17) Lung nodule (06/12/16) Mixed hyperlipidemia (06/03/15) Hypertension (02/23/11) Surgical History Status post left hemicolectomy History of lung surgery (~2011) Social History marital status: number of children: 1 household members: spouse lives independently: Yes caregiver/support person: No housing: house pets and animals: No education level: college occupational status: other Previous occupational history: [employer] travel history: recurrent leisure activities: other Smoking Status: Former smoker Tobacco: How many years used: 30 Smokeless tobacco user: other quit status: quit date established second hand exposure: No alcohol intake: current substance use type: does not use Discharge Plan Discharge Plan Patient Disposition: Home Discharge orders & Medications Prescriptions: New vancomycin 125 mg capsule 125 mg PO QID Qty: 40 0RF Continued multivitamin [Multiple Vitamins] Tablet 1 tab PO QDAY Qty: 0 fluticasone propionate 50 mcg/actuation spray,suspension 1 spray NASAL DAILY alpha lipoic acid 1 cap PO DAILY rosuvastatin 5 mg tablet 5 mg PO DAILY Qty: 90 3RF (DME) Disabled Parking See Rx Instructions .ROUTE .MEDSUPPLY Qty: 1 0RF Patient Comments: does not have one but would like one. Rx Instructions: Patient qualifies for disabled parking as per the attached form. alfuzosin 10 mg tablet extended release 24 hr 10 mg PO DAILY Qty: 90 3RF acetaminophen [Tylenol] 325 mg tablet 325 mg PO ONCE PRN (Reason: pain) propranolol 20 mg tablet 10 mg PO DAILY Follow up/Referrals: José Miguel Davison MD [Primary Care Provider, Internal Medicine] Visit Report/Discharge Packet Stand Alone Forms: Patient Portal/API, Stroke Signs & Symptoms Discharge Data Primary Care Provider: José Miguel Davison PROFEE Charge Codes Discharge inpatient/observation: [id number]
[2025-05-09] MEDS: PROPRANOLOL 10 MG TABLET PO (08:47)
[2025-05-09] MEDS: ENOXAPARIN 40 MG/0.4 ML SYRINGE SUBCUT (08:47)
--- NOTE | 2025-05-09 10:30 | CM.DPC ---
DCP Discharge Home Per MD, pt is medically stable to discharge home today and no identified barriers to discharge. Pt in agreement with home, continues to decline SNF. Per PT, pt improved with mobility and requiring less assist yesterday and mostly CGA to SBA with some assist needed still with sit to stand. SW called pt's spouse Annette and she states her spouse called her this morning and updated her on discharge orders to home and SW discussed that he had improved with PT and no medical need to remain in the hospital and spouse in agreement with providing transport home for pt today between [id number]. SW discussed HH services and frequency and spouse confirms they have no hx of HH and currently she declines HH referral and states she would like to give pt about a week to see how much assist he is needing. SW explained if HH needed after discharge to call PCP Dr. Davison to request HH referral and spouse acknowledges understanding. Spouse inquired about house cleaning services and SW explained they typically are private pay and spouse confirms she has the list of [facility] [place]Note 2[place] resources and will call herself for assist with house cleaning this week. Updated RN who confirms pt's IV removed and pt dressed and should be ready for d/c once spouse arrives. Updated [facility] and [facility] that SNF no longer needed at d/c. OBED Adler
--- NOTE | 2025-05-09 11:04 | PC.NURSE ---
D/c packet reviewed with pt at bedside. IV removed. Discussed new Rx. Pt exited via w/c with RETAIL SHIFT MANAGER to private vehicle.
--- NOTE | 2025-05-09 12:24 | PT.IPTN ---
Current Diagnoses Enterocolitis due to Clostridium difficile, recurrent (05/07/25) Noninfective gastroenteritis and colitis, unspecified (05/07/25) Physical Therapy Treatment Note M2 PT-IP Current Condition Start: 05/06/25 13:32 Freq: NEEDED Status: Discharge Protocol: Document 05/06/25 12:49 DCW (Rec: 05/06/25 13:51 DCW [id number]) Physical Therapy Current Condition Current Condition Evaluation Date 05/06/25 Treatment Diagnosis C-diff, weakness Onset Date 05/05/25 M3 PT-IP Subjective Start: 05/06/25 13:32 Freq: NEEDED Status: Discharge Protocol: Document 05/09/25 09:02 SAK (Rec: 05/09/25 12:23 SAK [id number]) Subjective Physical Therapy Visit Type Type Treatment Note Visit Start Time 09:02 Visit Stop Time 09:35 Number of RECRUITING INTERNSHIP Visits 0 Physical Therapy Visit Comments Patient Comments agreeable to do PT M4 PT-IP Mobility and Gait Start: 05/06/25 13:32 Freq: NEEDED Status: Discharge Protocol: Document 05/09/25 09:02 SAK (Rec: 05/09/25 12:23 SAK [id number]) PT-Transfer Assessment Sit to and From Stand Sit to and from Contact Guard Assistance,1 Person Assistance,Use of Stand Upper Extremities Equipment Transfer Assistive Gait Belt,Front Wheeled Walker Device Orthotic/Prosthetic No Devices or Brace: Transfer Ability Level of Assist Contact Guard Assistance,1 Person Assistance,Use of Upper Extremities Comments Mobility Comments Pt. sitting up in chair. Ambulated 200 ft with FWW with SB-CGA, no LOB noted. Cues for safety with positive response to cues. Pt. reports has FWW at home . States ready for discharge Gait Assessment Gait Gait Assistance Standby Assistance,Contact Guard Assist Required: Distance (Feet) 300 Able to Maintain Yes Weight Bearing Status During Gait Assistive Devices Assistive Device Gait Belt,Front Wheeled Walker Orthotic/Prosthetic No Devices or Brace: Gait Deviations General Gait Pattern Decreased Stride Length,Decreased Feet Clearance Factors Limiting Gait Function Factors Limiting Decreased Activity Tolerance,Decreased Strength,Poor Gait Function Safety Awareness M5 PT-IP Objective Assessments Start: 05/06/25 13:32 Freq: NEEDED Status: Discharge Protocol: Document 05/06/25 12:49 DCW (Rec: 05/06/25 13:51 DCW [id number]) Orientation Orientation/Cognition Level of Alertness Confusional State Safety Awareness Decreased Safety Awareness Comments Pt impulsive, tangential historian, easily side-tracked . Poor safety awareness Strength Lower Extremity Strength Assessment Bilaterally Impaired Hip 4 Knee 4- Comments Strength Comments Weakness as he fatigues, had more difficulty extending his knee to stand upright after walking around the room . M6 PT-IP Treatment Start: 05/06/25 13:32 Freq: NEEDED Status: Discharge Protocol: Document 05/08/25 14:30 AB (Rec: 05/08/25 17:58 AB Desktop) Physical Therapy Treatment Education Education Provided Safety M7 PT-IP Assessment and Plan Start: 05/06/25 13:32 Freq: NEEDED Status: Discharge Protocol: Document 05/09/25 09:02 SAK (Rec: 05/09/25 12:23 SAK [id number]) PT Summary Assessment and Plan Potential Rehabilitation Good Potential Summary Impairments Pain,ROM,Strength,Balance,Coordination,Sensation,Tone, Cognition,Bed Mobility,Transfers,Gait,Activity Tolerance Progress Towards Slow Progress - Other Goals Assessment Summary Pt. functional mobility improving. Needs FWW for safety. Would benefit from either HH PT or OP PT at discharge; discussed this with patient and he was in agreement. Has assist of at home. Goals Bed Mobility Goal Independent Transfer Goal Independent,Front Wheeled Walker Gait Goal Independent,Front Wheel Walker Gait Distance 200 Other Goals improve transfers/ambulation using LRAD/without AD >300 ft mod I 4 steps SBA /c B rails Days to Meet Goals 10 Frequency of Treatment Frequency Of Once a Day Treatment Treatment Plan Physical Therapy Bed Mobility Training,Transfer Training,Gait Training, Treatment Plan Therapeutic Exercise,Balance Retraining,Discharge Planning,Neuromuscular Re-ed,Manual Therapy Precautions Other Precautions falls, enteric contact precautions Recommendations To Nursing Amount of Assist Standby Assistance Needed Discharge Recommendations PT Discharge Home with 25/02 Assist Available,Home Health,Outpatient Recommendations PT Transportation Needs Private Vehicle,Wheelchair/Cabulance at Discharge - PT assist 1
== END 2025-05-09 11:00 | disposition home or self-care (01) | DRG 372 ==
LOC: ED 04:54 → AC 04:55
PROVIDERS: Admitting Provider Internal Medicine; Emergency Provider Family Medicine; PCP Internal Medicine; Referring Provider Family Medicine; Visit Provider Internal Medicine
DX: A04.71 Enterocolitis due to Clostridium difficile, recurrent (principal); E44.0 Moderate protein-calorie malnutrition; I10 Essential (primary) hypertension; D47.2 Monoclonal gammopathy; R53.1 Weakness; N40.1 Benign prostatic hyperplasia with lower urinary tract symptoms; K80.20 Calculus of gallbladder without cholecystitis without obstruction; R33.8 Other retention of urine; E78.5 Hyperlipidemia, unspecified; Z85.038 Personal history of other malignant neoplasm of large intestine; Z90.49 Acquired absence of other specified parts of digestive tract; Z68.21 Body mass index [BMI] 21.0-21.9, adult; Z87.891 Personal history of nicotine dependence
CPT/HCPCS: 36415; 74177; 76705; 80048; 80053; 81003; 81015; 83605; 83690; 84484; 85007; 85025; 87040; 87324; 87493; 96361; 96365; 97116; 97129; 97130; 97163; 97166; 97530; 99222; 99232; 99238; 99284; G0378; J1650; J2543; J7030; J7042; J7050; J7120; Q9967

== ENCOUNTER 2025-06-20 19:24 | Emergency (ER) | payer MEDICARE, SELFPAY ==
[2025-05-05 08:29] VITALS: BMI 20.9
[2025-06-20 19:39] VITALS: BP 139/65; PULSE 115; RESP 18; TEMP 37.8; O2SAT 98
--- NOTE | 2025-06-20 19:59 | PC.NURSE ---
Educated patient on nurse initated orders including line, labs, urine, etc. Patient would not agree to or decline to allow those orders to happen without speaking to doctor. Educated patient that he will have to wait until room is available. Patient put back into lobby, charge nurse made aware.
[2025-06-20 20:57] LABS: Add Manual Diff / Slide Review NO; Hematocrit 27.2 % (41-53); Hemoglobin 9.3 g/dL (13.5-17.5); Lymphocytes Absolute Auto 600 /uL (1100-4500); Mean Corpuscular HGB Conc 34.3 % (30-36); Mean Corpuscular Hemoglobin 31.8 PG (26-34); Mean Corpuscular Volume 92.5 fL (80-100); Platelet Count 192 X10^3/uL (150-400)
[2025-06-20 21:04] LABS: INR 1.3 (0.9-1.3); Prothrombin Time 14.2 SECONDS (9.4-12.5)
[2025-06-20 21:07] LABS: PTT Partial Thromboplastin Tim 32 SECONDS (25.1-36.5)
[2025-06-20 21:09] LABS: Alanine Aminotransferase 21 IU/L (<50); Albumin 3.9 g/dL (3.5-5.0); Albumin Globulin Ratio 1.1 (1.0-2.8); Alkaline Phosphatase 77 U/L (38-126); Blood Urea Nitrogen 21 mg/dL (9-20); Calcium 8.9 mg/dL (8.4-10.2); Carbon Dioxide 21 mmol/L (22-32); Chloride 106 mmol/L (98-107); Creatine Kinase 72 U/L (55-170); Estimated Glomerular Filt Rate 57 mL/min (>60); Globulin 3.6 g/dL (1.7-4.1); Glucose 123 mg/dL (70-99); HEMOLYSIS < 15 (0-50); Lipase 82 U/L (23-300); Magnesium 1.9 mg/dL (1.6-2.3); Potassium 4.1 mmol/L (3.4-5.1); Sodium 138 mmol/L (137-145); Total Protein 7.5 g/dL (6.3-8.2)
[2025-06-20 21:20] LABS: NT-proBNP (BNP-Adult 18+) 1140 pg/mL (<450); Troponin I < 0.012 ng/mL (0.01-0.034)
--- NOTE | 2025-06-20 21:51 | ED.WEAKNESS ---
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 Patient denies headache, dizziness, loss of consciousness, difficulty speaking, swallowing, shortness breath, trauma, bowel or bladder incontinence. Other than what is stated 14 point review of systems. Related Data Home Medications ?Medication ?Instructions ?Recorded ?Confirmed fluticasone propionate 50 1 spray intranasal DAILY 06/04/19 06/10/25 mcg/actuation nasal spray,suspension multivitamin (Multiple Vitamins 1 tab PO QDAY ##0 06/10/23 06/10/25 tablet) alpha lipoic acid 1 cap PO DAILY 05/05/24 06/10/25 acetaminophen 325 mg tablet 325 mg PO ONCE PRN pain 03/01/25 06/10/25 (Tylenol) propranolol 20 mg tablet 10 mg PO DAILY 03/10/25 06/10/25 Previous Rx's ?Medication ?Instructions ?Recorded Disabled Parking #1 ea 05/05/24 triamcinolone acetonide 0.1 % 1 applic topical TID #80 grams 05/18/25 topical cream alfuzosin 10 mg tablet,extended 10 mg PO DAILY #90 tabs 06/03/25 release 24 hr rosuvastatin 5 mg tablet 5 mg PO DAILY #90 tabs 06/03/25 Allergies Allergy/AdvReac Type Severity Reaction Status Date / Time No Known Drug Allergies Allergy Verified 06/20/25 19:39 Review of Systems Review of Systems ROS Unobtainable: All systems reviewed & are unremarkable except as noted in HPI and below Patient History Medical History C. difficile colitis Proctocolitis Right bundle branch block Peripheral neuropathy Monoclonal gammopathy Atherosclerosis of aorta Paraganglioma Lower urinary tract symptoms (LUTS) Seasonal allergies Mumps Measles Chicken pox Benign prostatic hyperplasia Esophageal reflux (07/07/03) Hypogonadism in male (05/31/17) Lung nodule (06/12/16) Mixed hyperlipidemia (06/03/15) Hypertension (02/23/11) Surgical History Status post left hemicolectomy History of lung surgery (~2011) Social History marital status: number of children: 1 household members: spouse lives independently: Yes caregiver/support person: No housing: house pets and animals: No education level: college occupational status: other Previous occupational history: [employer] travel history: recurrent leisure activities: other Tobacco: How many years used: 30 Smokeless tobacco user: other quit status: quit date established second hand exposure: No alcohol intake: current substance use type: does not use alcohol intake frequency: 0-2 drinks per day Alcohol type: hard liquor Exam Narrative Exam Narrative: GENERAL: [84] year old patient appears stated age. Well-developed patient, in mild distress. HEAD: Atraumatic. Normocephalic. EYES: Pupils equal round and reactive. Extraocular motions intact. No scleral icterus. No injection or drainage. ENT: Nose without bleeding, purulent drainage. Throat without erythema, tonsillar hypertrophy or exudate. Airway patent. NECK: Trachea midline. Non tender CARDIOVASCULAR: Regular rate and rhythm without murmurs, gallops, or rubs. RESPIRATORY: Clear to auscultation. Breath sounds equal bilaterally. No wheezes, rales, or rhonchi. GASTROINTESTINAL: Abdomen soft, non-tender, nondistended. EXTREMITIES: No edema or joint tenderness. BACK: Nontender without deformity or crepitance. No flank tenderness. NEURO: AOx3. SKIN: No rash or erythema of visible areas Initial Vital Signs Initial Vital Signs: Vital Signs Temperature 100.1 F H 06/20/25 19:39 Pulse Rate 115 H 06/20/25 19:39 Respiratory Rate 18 06/20/25 19:39 Blood Pressure 139/65 06/20/25 19:39 Pulse Oximetry 98 06/20/25 19:39 Oxygen Delivery Method Room Air 06/20/25 19:39 Course Orders Ordered: ED Orders 06/20/25 19:50 EKG-12 Lead Stat 06/20/25 20:45 Complete Blood Count AUTO DIFF Stat Comprehensive Metabolic Panel Stat Lipase Stat Magnesium Stat NT-proBNP (BNP-Adult 18+) Stat PTT Partial Thromboplastin Nolan Stat Prothrombin Time INR Stat Troponin & CK Cardiac Panel Stat 06/20/25 21:24 Urine Microscopic Stat 06/20/25 22:25 CT head/brain wo con Stat CT lumbar spine wo con Stat 06/20/25 22:56 Troponin I Stat 06/21/25 00:19 CXR [XR chest 1V] Stat Discontinued Medications Aspirin (Aspirin 81 Mg Chew Tab) 324 mg PO NOW ONE Stop: 06/20/25 19:51 Last Admin: 06/21/25 00:28 Dose: Not Given Documented By: SB Vital Signs Vital signs: Vital Signs - 8 hr 06/20/25 19:39 Temperature 100.1 F H Pulse Rate 115 H Respiratory Rate 18 Blood Pressure 139/65 Pulse Oximetry 98 Oxygen Delivery Method Room Air MDM - Weakness Lab Data 06/20/25 20:45 06/20/25 20:45 Labs: Lab Results 06/20/25 06/20/25 06/20/25 Range/Units 20:45 21:24 22:56 WBC 8.6 (4.5-11.0) X10^3/uL RBC 2.94 L (4.5-5.9) X10^6/uL Hgb 9.3 L (13.5-17.5) g/dL Hct 27.2 L (41-53) % MCV 92.5 (80-100) fL MCH 31.8 (26-34) PG MCHC 34.3 (30-36) % RDW 16.7 H (11.6-14.8) % Plt Count 192 (150-400) X10^3/uL Neut % (Auto) 56.5 (50-75) % Lymph % (Auto) 7.4 L (25-40) % [place] % (Auto) 35.1 H (3-14) % Eos % (Auto) 0.6 L (2-4) % Baso % (Auto) 0.4 (0-2) % Neut # (Auto) 4900 (7888-6312) /uL Lymph # (Auto) 600 L (3705-7534) /uL [place] # (Auto) 3000 H (0-900) /uL Eos # (Auto) 100 (0-450) /uL Baso # (Auto) 0 (0-100) /uL PT 14.2 H (9.4-12.5) SECONDS INR 1.3 (0.9-1.3) APTT 32 (25.1-36.5) SECONDS Sodium 138 (137-145) mmol/L Potassium 4.1 (3.4-5.1) mmol/L Chloride 106 (98-107) mmol/L Carbon Dioxide 21 L (22-32) mmol/L BUN 21 H (9-20) mg/dL Creatinine 1.25 (0.66-1.25) mg/dL Estimated GFR 57 L (>60) mL/min BUN/Creatinine Ratio 16.8 (6-22) Glucose 123 H (70-99) mg/dL Calcium 8.9 (8.4-10.2) mg/dL Magnesium 1.9 (1.6-2.3) mg/dL Total Bilirubin 0.4 (0.2-1.3) mg/dL AST 29 (17-59) IU/L ALT 21 (<50) IU/L Alkaline Phosphatase 77 (38-126) U/L Total Creatine Kinase 72 (55-170) U/L Troponin I < 0.012 < 0.012 (0.01-0.034) ng/mL NT-Pro-B Natriuret Pep 1140 H (<450) pg/mL Total Protein 7.5 (6.3-8.2) g/dL Albumin 3.9 (3.5-5.0) g/dL Globulin 3.6 (1.7-4.1) g/dL Albumin/Globulin Ratio 1.1 (1.0-2.8) Lipase 82 (23-300) U/L Urine RBC 0-1/hpf (0-5/HPF) Urine WBC None seen (0-5/HPF) Ur Squamous Epith Cells 0-1 /hpf (0-5/HPF) Urine Bacteria None seen (None) Ur Culture Indicated? Cult not indicated Vol Urine Centrifuged 10ml (spun) Urine Dip Bedside Urine Glucose Negative Bedside Urine Bilirubin - Negative Bedside Urine Ketone - Negative Urine Specific [place] 1.015 Bedside Urine Occult Blood + Bedside Urine pH 5.5 Bedside Urine Protein + 30 Bedside Urine Urobilinogen - Negative Bedside Urine Nitrite - Negative Bedside Urine Leukocytes - Negative Esterase Imaging Data CT scan - head: Radiologist Impression: [address] [address] [address] Scan Report Signed Patient: Justyn Tinsley MR#: [id number] : 1940 Acct:[id number] Age/Sex: 84 / M Date of Service: 06/20/25 Loc: ED Accession Number: [id number] Procedure: CT head/brain wo con Ordering Provider: José Miguel Roblero D.O. PROCEDURE: CT HEAD/BRAIN WO CON INDICATIONS: weakness/ difficulty walking TECHNIQUE: Noncontrast 4.5 mm thick angled axial sections acquired from the foramen magnum to the vertex, with coronal and sagittal reformats. For radiation dose reduction, the following was used: automated exposure control, adjustment of mA and/or kV according to patient size. COMPARISON: None. FINDINGS: Image quality: Diagnostic. CSF spaces: Basal cisterns are patent. No extra-axial fluid collections. The ventricles are symmetric in size and shape. Brain: No intracranial bleeds or mass effect. There is cerebral volume loss, with resultant ventricular and sulcal prominence. There are periventricular and deep white matter chronic small vessel ischemic changes. There is intracranial internal carotid artery atherosclerosis. Skull and face: Calvarium and visualized facial bones appear intact, without suspicious lesions. Sinuses: Visualized sinuses and mastoids are clear. IMPRESSION: No acute intracranial pathology. Extremity x-ray #1: Radiologist Impression: [place] [address] CT Scan Report Signed Patient: Justyn Tinsley MR#: [id number] : 1940 Acct:[id number] Age/Sex: 84 / M Date of Service: 06/20/25 Loc: ED Accession Number: [id number] Procedure: CT lumbar spine wo con Ordering Provider: José Miguel Roblero D.O. PROCEDURE: CT LUMBAR SPINE WO CON INDICATIONS: weakness/ difficulty walking TECHNIQUE: Noncontrast 3 mm thick sections acquired from the T12 level to the sacrum. Sagittal and coronal reformats were constructed. For radiation dose reduction, the following was used: automated exposure control. COMPARISON: None. FINDINGS: Image quality: Diagnostic Bones: There is normal bony alignment. No acute vertebral body compression fractures. No suspicious lytic or blastic bony lesions. No pars defects. Multilevel degenerative changes. Soft tissues: No retroperitoneal masses or hematomas. Visualized aorta is normal in caliber. IMPRESSION: No acute fracture or traumatic subluxation. Approved by: Rika Noriega M.D.,Ph.D. on 06/20/2025 at 23:53 MDM Narrative Medical decision making narrative: All lab work, vital signs, nurse triage note, medication list, previous ER visits, and all imaging studies reviewed. WBC 8.6 hemoglobin 9.3 platelet 192 INR 1.3 sodium 138 potassium 4.1 chloride 1 0 CO2 21 creatinine 1.25 glucose 120 LFTs normal 2 sets troponin normal BNP 11 40 lipase [address] head showed no acute process. CT lumbar spine showed no acute fracture or traumatic subluxation. Patient was able to pass ambulation trial with no difficulty. Discharge Plan Departure Patient Disposition: Home Clinical Impression: Weakness Instructions: DI for Muscle Weakness Activity Restrictions/Additional Instructions: Return with new or worsening symptoms. Please follow up with PCP in 1-2 weeks if no improvement in symptoms. Prescriptions: No Action multivitamin [Multiple Vitamins] Tablet 1 tab PO QDAY Qty: 0 alfuzosin 10 mg tablet extended release 24 hr 10 mg PO DAILY Qty: 90 3RF rosuvastatin 5 mg tablet 5 mg PO DAILY Qty: 90 3RF fluticasone propionate 50 mcg/actuation spray,suspension 1 spray NASAL DAILY alpha lipoic acid 1 cap PO DAILY (DME) Disabled Parking See Rx Instructions .ROUTE .MEDSUPPLY Qty: 1 0RF Patient Comments: does not have one but would like one. Rx Instructions: Patient qualifies for disabled parking as per the attached form. triamcinolone acetonide 0.1 % cream 1 applic topical TID Qty: 80 0RF acetaminophen [Tylenol] 325 mg tablet 325 mg PO ONCE PRN (Reason: pain) propranolol 20 mg tablet 10 mg PO DAILY Referrals: José Miguel Davison MD [Primary Care Provider, Internal Medicine] Stand Alone Forms: Patient Portal/API
[2025-06-20 22:08] LABS: Culture Indicated Urine Cult Not Indicated
--- NOTE | 2025-06-20 22:25 | DI.CT.S_ITS ---
PROCEDURE: CT HEAD/BRAIN WO CON INDICATIONS: weakness/ difficulty walking TECHNIQUE: Noncontrast 4.5 mm thick angled axial sections acquired from the foramen magnum to the vertex, with coronal and sagittal reformats. For radiation dose reduction, the following was used: automated exposure control, adjustment of mA and/or kV according to patient size. COMPARISON: None. FINDINGS: Image quality: Diagnostic. CSF spaces: Basal cisterns are patent. No extra-axial fluid collections. The ventricles are symmetric in size and shape. Brain: No intracranial bleeds or mass effect. There is cerebral volume loss, with resultant ventricular and sulcal prominence. There are periventricular and deep white matter chronic small vessel ischemic changes. There is intracranial internal carotid artery atherosclerosis. Skull and face: Calvarium and visualized facial bones appear intact, without suspicious lesions. Sinuses: Visualized sinuses and mastoids are clear. IMPRESSION: No acute intracranial pathology. Approved by: Rika Noriega M.D.,Ph.D. on 06/20/2025 at 23:50
--- NOTE | 2025-06-20 22:25 | DI.CT.S_ITS ---
PROCEDURE: CT LUMBAR SPINE WO CON INDICATIONS: weakness/ difficulty walking TECHNIQUE: Noncontrast 3 mm thick sections acquired from the T12 level to the sacrum. Sagittal and coronal reformats were constructed. For radiation dose reduction, the following was used: automated exposure control. COMPARISON: None. FINDINGS: Image quality: Diagnostic Bones: There is normal bony alignment. No acute vertebral body compression fractures. No suspicious lytic or blastic bony lesions. No pars defects. Multilevel degenerative changes. Soft tissues: No retroperitoneal masses or hematomas. Visualized aorta is normal in caliber. IMPRESSION: No acute fracture or traumatic subluxation. Approved by: Rika Noriega M.D.,Ph.D. on 06/20/2025 at 23:53
[2025-06-20 23:31] LABS: Troponin I < 0.012 ng/mL (0.01-0.034)
--- NOTE | 2025-06-21 00:19 | DI.RAD.S_ITS ---
PROCEDURE: XR CHEST 1V INDICATIONS: weakness TECHNIQUE: One view of the chest was acquired. COMPARISON: [facility], CR, XR CHEST 2V, 12/31/2024, 14:29. FINDINGS: Surgical changes and devices: None. Lungs and pleura: Lungs are clear. No pleural effusions or pneumothorax. Mediastinum: Mediastinal contours appear normal. Heart size is normal. Bones and chest wall: No suspicious bony lesions. Overlying soft tissues appear unremarkable. IMPRESSION: No acute cardiopulmonary abnormality is seen. Approved by: Rika Noriega M.D.,Ph.D. on 06/21/2025 at 0:57
[2025-06-21 01:13] VITALS: BP 151/67; PULSE 82; RESP 16; O2SAT 98
== END 2025-06-21 01:14 | disposition home or self-care (01) ==
PROVIDERS: Emergency Provider Family Medicine; PCP Internal Medicine
DX: R53.1 Weakness (principal); M54.50 Low back pain, unspecified
CPT/HCPCS: 36415; 70450; 71045; 72131; 80053; 81003; 81015; 82550; 83690; 83735; 83880; 84484; 85025; 85610; 85730; 99281; 99284

== ENCOUNTER → 2025-07-08 16:24 | Outpatient (CLI) | payer MEDICARE, SELFPAY ==
[2025-05-05 08:29] VITALS: BMI 20.9
[2025-07-08 18:18] LABS: Creatine Kinase 59 U/L (55-170); Magnesium 1.9 mg/dL (1.6-2.3)
[2025-07-08 18:29] LABS: Free T4, Direct Thyroxine 1.33 ng/dL (0.78-2.19)
[2025-07-08 18:43] LABS: Thyroid Stimulating Hormone 1.24 uIU/mL (0.47-4.68)
== END ==
PROVIDERS: PCP Internal Medicine; Referring Provider Internal Medicine; Visit Provider Internal Medicine
DX: D50.0 Iron deficiency anemia secondary to blood loss (chronic) (principal); I10 Essential (primary) hypertension; E78.2 Mixed hyperlipidemia
CPT/HCPCS: 36415; 82550; 83735; 84439; 84443; 85651; 86140

== ENCOUNTER 2025-07-10 22:28 | Inpatient (IN) | payer MEDICARE, SELFPAY ==
[2025-05-05 08:29] VITALS: BMI 20.9
[2025-07-10 22:32] VITALS: BP 157/70; PULSE 86; O2SAT 97
[2025-07-10 22:44] VITALS: BP 157/70; PULSE 80; RESP 15; TEMP 36.9; O2SAT 97; BMI 22.7
[2025-07-10 23:00] VITALS: BP 151/65; PULSE 84; RESP 16; O2SAT 98
[2025-07-10 23:30] VITALS: BP 143/65; PULSE 87; RESP 16; O2SAT 99
--- NOTE | 2025-07-10 23:46 | ED.GIBLEED ---
HPI - GI Bleed General Chief complaint: GI Bleed Stated complaint: weakness, dark stool Time Seen by Provider: 07/10/25 23:30 Source: patient and EMS Mode of arrival: EMS History of Present Illness HPI Narrative: 84-year-old male with history of recent C diff infection approximately a month ago status post vancomycin treatment presents with several episodes of black stool in the past 3 days. Patient denies any chest pain abdominal pain urinary symptoms or any other symptoms. Patient has had a history of ongoing anemia and revealed colonic adenocarcinoma. he underwent surgery with Dr. Perry here at [facility] 03/10/2025 revealing stage II disease. He did not need adjuvant chemotherapy. Related Data Home Medications ?Medication ?Instructions ?Recorded ?Confirmed fluticasone propionate 50 1 spray intranasal DAILY 06/04/19 07/08/25 mcg/actuation nasal spray,suspension multivitamin (Multiple Vitamins 1 tab PO QDAY ##0 06/10/23 07/08/25 tablet) alpha lipoic acid 1 cap PO DAILY 05/05/24 07/08/25 acetaminophen 325 mg tablet 325 mg PO ONCE PRN pain 03/01/25 07/08/25 (Tylenol) propranolol 20 mg tablet 10 mg PO DAILY 03/10/25 07/08/25 Previous Rx's ?Medication ?Instructions ?Recorded Disabled Parking #1 ea 05/05/24 triamcinolone acetonide 0.1 % 1 applic topical TID #80 grams 05/18/25 topical cream alfuzosin 10 mg tablet,extended 10 mg PO DAILY #90 tabs 06/03/25 release 24 hr rosuvastatin 5 mg tablet 5 mg PO DAILY #90 tabs 06/03/25 duloxetine 30 mg capsule,delayed 30 mg PO BID #60 caps 07/08/25 release Allergies Allergy/AdvReac Type Severity Reaction Status Date / Time No Known Drug Allergies Allergy Verified 07/08/25 15:28 Review of Systems Review of Systems ROS Unobtainable: All systems reviewed & are unremarkable except as noted in HPI and below Patient History Medical History C. difficile colitis Proctocolitis Right bundle branch block Peripheral neuropathy Monoclonal gammopathy Atherosclerosis of aorta Paraganglioma Lower urinary tract symptoms (LUTS) Seasonal allergies Mumps Measles Chicken pox Benign prostatic hyperplasia Esophageal reflux (07/07/03) Hypogonadism in male (05/31/17) Lung nodule (06/12/16) Mixed hyperlipidemia (06/03/15) Hypertension (02/23/11) Surgical History Status post left hemicolectomy History of lung surgery (~2011) Social History marital status: number of children: 1 household members: spouse lives independently: Yes caregiver/support person: No housing: house pets and animals: No education level: college occupational status: other Previous occupational history: [employer] travel history: recurrent leisure activities: other Smoking Status: Former smoker Tobacco: How many years used: 30 Smokeless tobacco user: other quit status: quit date established second hand exposure: No alcohol intake: current substance use type: does not use alcohol intake frequency: 0-2 drinks per day Alcohol type: hard liquor Exam Narrative Exam Narrative: General: Patient appears to be in no acute distress, acting appropriately Head: normocephalic, atraumatic, HEENT: Pupils equal round reactive, eyes tracking well, neck supple, no JVD Heart: regular rate and rhythm, no murmurs, rubs, or gallops heard Lungs: clear to auscultation, no adventitious sounds Abdomen: soft , nontender, nondistended, positive bowel sounds Neurological: no focal neurological signs, moving all extremities well, alert and oriented x3, Psych: good judgment ,good insight, mood is normal. Initial Vital Signs Initial Vital Signs: Vital Signs Pulse Rate 86 07/10/25 22:32 Blood Pressure 157/70 H 07/10/25 22:32 Pulse Oximetry 97 07/10/25 22:32 Course Orders Ordered: ED Orders 07/10/25 22:36 CBC Auto Diff [Complete Blood Count AUTO DIFF] Stat CMP [Comprehensive Metabolic Panel] Stat PT [Prothrombin Time INR] Stat 07/11/25 00:05 GI Panel (Film Array) Stat 07/11/25 00:16 Gastric Occult with pH Stat 07/11/25 00:17 Lactate (Lactic Acid) Stat Procalcitonin Stat 07/11/25 00:18 CT angio Abd/Pel GI Bleed Stat Acetaminophen (Acetaminophen 325 Mg Tablet) 650 mg PO Q6H PRN PRN Reason: Pain, Mild (1-3) Fidaxomicin (Fidaxomicin 200 Mg Tablet) 200 mg PO BID [facility] Last Admin: 07/11/25 03:40 Dose: 200 mg Documented By: CORDELIA Sodium Chloride (Normal Saline 0.9%) 1,000 mls @ 100 mls/hr IV CONT KIRSTEN Last Admin: 07/11/25 03:40 Dose: 100 mls/hr Documented By: CORDELIA Ondansetron HCl (Ondansetron 4 Mg/2 Ml Inj) 4 mg IV Q4H PRN PRN Reason: Nausea And Vomiting Sodium Chloride (Sodium Chloride 0.9% Flush) 10 ml IV PRN PRN PRN Reason: Flush Discontinued Medications Lactated Ringer's (Lactated Ringers) 500 mls @ 1,000 mls/hr IV BOLUS ONE Stop: 07/11/25 00:46 Last Infusion: 07/11/25 01:48 Dose: Infused Documented By: Admin: 07/11/25 00:24 Dose: 1,000 mls/hr Documented By: TELLY Consultations Consultation #1: Dr. Ray Was consulted and agreed with an admission as an inpatient. Vital Signs Vital signs: Vital Signs - 8 hr 07/10/25 22:32 07/10/25 22:32 07/10/25 22:44 Temperature 98.4 F Pulse Rate 86 80 Respiratory Rate 15 Blood Pressure 157/70 H 157/70 H Pulse Oximetry 97 97 Oxygen Delivery Method Room Air 07/10/25 23:00 07/10/25 23:00 07/10/25 23:30 Temperature Pulse Rate 84 Respiratory Rate 16 Blood Pressure 151/65 H 143/65 H Pulse Oximetry 98 Oxygen Delivery Method Room Air 07/10/25 23:30 07/11/25 00:00 07/11/25 00:00 Temperature Pulse Rate 87 91 H Respiratory Rate 16 22 Blood Pressure 146/70 H Pulse Oximetry 99 100 Oxygen Delivery Method Room Air Room Air 07/11/25 00:30 07/11/25 00:30 07/11/25 00:50 Temperature Pulse Rate 83 Respiratory Rate 14 Blood Pressure 152/67 H 153/67 H Pulse Oximetry 99 Oxygen Delivery Method 07/11/25 00:50 07/11/25 01:00 07/11/25 01:00 Temperature Pulse Rate 91 H 86 Respiratory Rate 14 15 Blood Pressure 153/80 H Pulse Oximetry 99 97 Oxygen Delivery Method 07/11/25 01:30 Temperature Pulse Rate 113 H Respiratory Rate 24 Blood Pressure Pulse Oximetry Oxygen Delivery Method MDM - GI Bleed Lab Data 07/11/25 04:45 07/10/25 22:36 Labs: Lab Results 07/10/25 07/11/25 07/11/25 Range/Units 22:36 00:05 00:17 WBC 17.8 H (4.5-11.0) X10^3/uL RBC 2.82 L (4.5-5.9) X10^6/uL Hgb 8.7 L (13.5-17.5) g/dL Hct 26.2 L (41-53) % MCV 92.7 (80-100) fL MCH 30.7 (26-34) PG MCHC 33.1 (30-36) % RDW 16.4 H (11.6-14.8) % Plt Count 161 (150-400) X10^3/uL Neut % (Auto) Not Reportable Lymph % (Auto) Not Reportable [place] % (Auto) Not Reportable Eos % (Auto) Not Reportable Baso % (Auto) Not Reportable Lymph # (Auto) Not Reportable [place] # (Auto) Not Reportable Baso # (Auto) Not Reportable Total Counted 100 Seg Neutrophils % 77.0 H (38-70) % Lymphocytes % (Manual) 4.0 L (25-45) % Monocytes % (Manual) 19.0 H (2-11) % Neutrophils # (Manual) 30538 H (8254-2611) /uL RBC Morphology Normal morphology PT 14.1 H (9.4-12.5) SECONDS INR 1.2 (0.9-1.3) Sodium 138 (137-145) mmol/L Potassium 4.5 (3.4-5.1) mmol/L Chloride 105 (98-107) mmol/L Carbon Dioxide 21 L (22-32) mmol/L BUN 33 H (9-20) mg/dL Creatinine 1.38 H (0.66-1.25) mg/dL Estimated GFR 50 L (>60) mL/min BUN/Creatinine Ratio 23.9 H (6-22) Glucose 127 H (70-99) mg/dL Lactate 1.8 (0.7-2.1) mmol/L Calcium 9.0 (8.4-10.2) mg/dL Total Bilirubin 0.5 (0.2-1.3) mg/dL AST 25 (17-59) IU/L ALT 18 (<50) IU/L Alkaline Phosphatase 73 (38-126) U/L Total Protein 7.4 (6.3-8.2) g/dL Albumin 3.8 (3.5-5.0) g/dL Globulin 3.6 (1.7-4.1) g/dL Albumin/Globulin Ratio 1.1 (1.0-2.8) Procalcitonin 0.148 (<0.5) ng/mL Stl C. cayetanensis PCR Not detected (Not Detect) Stool Rotavirus (PCR) Not detected (Not Detect) Stool Adenovirus (PCR) Not detected (Not Detect) Stool Astrovirus (PCR) Not detected (Not Detect) Stool Cryptosporidium PCR Not detected (Not Detect) Stl E.coli Shiga Tox PCR Not detected (Not Detect) St Sh/Enteroin Ecoli PCR Not detected (Not Detect) Stl Enterotoxigenic E PCR Not detected (Not Detect) Stool EPEC (PCR) Not detected (Not Detect) Stl E. histolytica PCR Not detected (Not Detect) Stool Giardia Lamblia PCR Not detected (Not Detect) Stool Sapovirus (PCR) Not detected (Not Detect) Stl P. shigelloides PCR Not detected (Not Detect) St Y.enterocolitica PCR Not detected (Not Detect) Stool Vibrio (PCR) Not detected (Not Detect) Stl Vibrio cholerae PCR Not detected (Not Detect) Stl Enteroaggr Ecoli PCR Not detected (Not Detect) Stl Norovirus GI/GII PCR Not detected (Not Detect) Campylobacter (PCR) Not detected (Not Detect) C. difficile Tox (PCR) Detected H (Not Detect) Salmonella (PCR) Not detected (Not Detect) Imaging Data CT scan - abdomen/pelvis: Radiologist's Impression: No evidence of active arterial bleed in the gastrointestinal tract. Large colonic stool burden, particularly in the rectum, with new wall thickening of the rectum suggestive of stercoral proctitis. Otherwise, no acute abnormality is identified in the abdomen or pelvis. MDM Narrative Medical decision making narrative: 84-year-old male with a history of Clostridium difficile status post surgery from colon adenocarcinoma. Patient finished a course of vancomycin and was improving with his diarrhea and runny stools but in the past 3 days been having more tarry black stools . patient's stool study did come back with a recurrent Clostridium difficile infection. Patient's CTA of the abdomen and pelvis did not reveal an active arterial bleed. His bedside guaiac study was negative. Dr. Ray was consulted who will admit the patient as an inpatient. Patient is started on fidaxomicin considering his failed treatment with vancomycin. Discharge Plan Departure Patient Disposition: Admitted As Inpatient Clinical Impression: Clostridium difficile infection Admit Date/Time: 07/11/25 01:45 Admit Provider: Roman Ray
[2025-07-10 23:56] LABS: Hematocrit 26.2 % (41-53); Hemoglobin 8.7 g/dL (13.5-17.5); Mean Corpuscular HGB Conc 33.1 % (30-36); Mean Corpuscular Hemoglobin 30.7 PG (26-34); Mean Corpuscular Volume 92.7 fL (80-100); Platelet Count 161 X10^3/uL (150-400)
[2025-07-10 23:57] LABS: Add Manual Diff / Slide Review YES
[2025-07-11] VITALS (12 sets, daily range): BP systolic 104–167; BP diastolic 57–85; PULSE 48–113; RESP 14–24; TEMP 35.9–37; O2SAT 96–100; BMI 21.2
[2025-07-11] LABS: Alanine Aminotransferase 18 IU/L (<50); Albumin 3.8 g/dL (3.5-5.0); Albumin Globulin Ratio 1.1 (1.0-2.8); Alkaline Phosphatase 73 U/L (38-126); Blood Urea Nitrogen 33 mg/dL (9-20); Calcium 9.0 mg/dL (8.4-10.2); Carbon Dioxide 21 mmol/L (22-32); Chloride 105 mmol/L (98-107); Estimated Glomerular Filt Rate 50 mL/min (>60); Globulin 3.6 g/dL (1.7-4.1); Glucose 127 mg/dL (70-99); HEMOLYSIS < 15 (0-50); Potassium 4.5 mmol/L (3.4-5.1); Sodium 138 mmol/L (137-145); Total Protein 7.4 g/dL (6.3-8.2)
[2025-07-11 00:01] LABS: INR 1.2 (0.9-1.3); Prothrombin Time 14.1 SECONDS (9.4-12.5)
--- NOTE | 2025-07-11 00:18 | DI.CT.S_ITS ---
PROCEDURE: CT ANGIO ABD/PEL GI BLEED INDICATIONS: gi bleed/diarrhea TECHNIQUE: After the administration of intravenous contrast, 2.5 mm sections acquired from the diaphragm to the iliac crests. 10 mm maximum intensity projection (MIP) coronal and sagittal reformats were then performed. For radiation dose reduction, the following was used: automated exposure control. COMPARISON: [facility], CT, CT ANGIO ABD/PEL GI BLEED, 04/14/2025, 10:24. FINDINGS: Image quality: Diagnostic. Abdominal aorta: No aortic aneurysm or evidence of acute aortic syndrome. Mesenteric arteries: Patent without hemodynamically significant stenosis. Renal arteries: Patent without hemodynamically significant stenosis. Lower chest: Similar small hiatal hernia. Similar small pericardial effusion. ABDOMEN: Liver: No solid mass. Gallbladder: Gallstones. No wall thickening. Biliary ducts: No biliary dilation. Pancreas: No ductal dilation. Spleen: Size is within normal limits. Adrenal Glands: No adrenal nodules. Kidneys and Ureters: No hydronephrosis. No solid mass. No complex renal cystic lesion which requires follow up. Stomach and Bowel: Status post partial colectomy with unremarkable anastomosis in the right lower quadrant. Large colonic stool burden, particularly in the rectum where there is wall thickening , new from prior, suggestive of stercoral proctitis. Colonic diverticulosis without evidence of acute diverticulitis. Resolution of previously seen inflammation in the sigmoid colon. Peritoneum: Trace free fluid in the pelvis. No free air. Ventral Wall: Small fat containing umbilical hernia. Abdominal Nodes: No retroperitoneal or mesenteric adenopathy by size criteria. Vessels: Aorta, as above. Normal IVC. PELVIS: Pelvic Organs: Prostatomegaly. Bladder: Distended bladder. No wall thickening. Pelvic Nodes: No enlarged lymph nodes. Miscellaneous: Bilateral small fat containing inguinal hernias. Bones: Multilevel degenerative changes of the lumbar spine. IMPRESSION: No evidence of active arterial bleed in the gastrointestinal tract. Large colonic stool burden, particularly in the rectum, with new wall thickening of the rectum suggestive of stercoral proctitis. Otherwise, no acute abnormality is identified in the abdomen or pelvis. Dictated by: Tre Tabares M.D. on 07/11/2025 at 1:14 Approved by: Tre Tabares M.D. on 07/11/2025 at 1:22
[2025-07-11] MEDS: LACTATED RINGERS 500 ML 1000 ML IV (00:24)
[2025-07-11 00:25] LABS: Lactate (Lactic Acid) 1.8 mmol/L (0.7-2.1)
[2025-07-11 00:33] LABS: Lymphocytes Percent Manual 4.0 % (25-45); Monocytes Percent Manual 19.0 % (2-11); Neutrophils Absolute Manual 13706 /uL (3000-5900); RBC Morphology Normal Morphology; Segmented Neutrophils Percent 77.0 % (38-70); Total Cells Counted 100
[2025-07-11 00:43] LABS: Procalcitonin 0.148 ng/mL (<0.5)
[2025-07-11 01:40] LABS: Clostridium difficile toxin AB Detected (Not Detect); Enteroaggregative E.coli Not Detected (Not Detect); Enteropathogenic E.coli Not Detected (Not Detect); Enterotoxigenic E.coli It/st Not Detected (Not Detect); Plesiomonsa shigelloides Not Detected (Not Detect); Shiga-like toxin-prod E.coli Not Detected (Not Detect)
[2025-07-11] MEDS: SODIUM CHLORIDE 0.9% 1,000 ML 100 ML IV ×3 (03:40→22:34)
[2025-07-11] MEDS: FIDAXOMICIN 200 MG TABLET PO ×3 (03:40→20:51)
[2025-07-11 05:04] LABS: Hematocrit 24.9 % (41-53); Hemoglobin 8.3 g/dL (13.5-17.5); Mean Corpuscular HGB Conc 33.3 % (30-36); Mean Corpuscular Hemoglobin 30.9 PG (26-34); Mean Corpuscular Volume 92.8 fL (80-100); Platelet Count 151 X10^3/uL (150-400)
[2025-07-11 05:16] LABS: Add Manual Diff / Slide Review YES
[2025-07-11 05:19] LABS: Anisocytosis 1+; Band Neutrophils Percent 1.0 % (3-7); Lymphocytes Percent Manual 7.0 % (25-45); Monocytes Percent Manual 26.0 % (2-11); Neutrophils Absolute Manual 10720 /uL (3000-5900); Segmented Neutrophils Percent 66.0 % (38-70); Total Cells Counted 100
--- NOTE | 2025-07-11 10:13 | PM.HP.1 ---
History of Present Illness History of Present Illness Date Patient Seen: 07/11/25 Time Patient Seen: 10:13 Date of Onset of Symptoms: 07/07/25 Chief complaint: weakness, dark stool Narrative: Patient is 84-year-old male who I am cross covering for who presents for weakness and positive C diff colitis. Patient has a history of previous C diff and recent surgery for cecal adenocarcinoma. Had no other significant changes or complaints. This is a 3rd C diff episode he has had. Recently treated with vancomycin. He has had no nausea or vomiting. But has not been super hungry. He has had some diarrhea and he is noticed black in nature. No fevers or chills chest pain shortness for breath or other complaints. Patient has not been drinking a lot of fluids. Has not been eating well but no other complaint. Patient really has had no abdominal pain. [facility] Medical History C. difficile colitis Proctocolitis Right bundle branch block Peripheral neuropathy Monoclonal gammopathy Atherosclerosis of aorta Paraganglioma Lower urinary tract symptoms (LUTS) Seasonal allergies Mumps Measles Chicken pox Benign prostatic hyperplasia Esophageal reflux (07/07/03) Hypogonadism in male (05/31/17) Lung nodule (06/12/16) Mixed hyperlipidemia (06/03/15) Hypertension (02/23/11) Surgical History Status post left hemicolectomy History of lung surgery (~2011) Social History marital status: number of children: 1 household members: spouse lives independently: Yes caregiver/support person: No housing: house pets and animals: No education level: college occupational status: other Previous occupational history: [employer] travel history: recurrent leisure activities: other Smoking Status: Former smoker Tobacco: How many years used: 30 Smokeless tobacco user: other quit status: quit date established second hand exposure: No alcohol intake: current substance use type: does not use Meds Home Medications and Allergies Home Medications ?Medication ?Instructions ?Recorded ?Confirmed ?Type fluticasone propionate 50 1 spray intranasal DAILY 06/04/19 07/08/25 History mcg/actuation nasal spray,suspension multivitamin (Multiple Vitamins 1 tab PO QDAY ##0 06/10/23 07/08/25 History tablet) Disabled Parking #1 ea 05/05/24 07/08/25 Rx alpha lipoic acid 1 cap PO DAILY 05/05/24 07/08/25 History acetaminophen 325 mg tablet 325 mg PO ONCE PRN pain 03/01/25 07/08/25 History (Tylenol) propranolol 20 mg tablet 10 mg PO DAILY 03/10/25 07/08/25 History triamcinolone acetonide 0.1 % 1 applic topical TID #80 grams 05/18/25 07/08/25 Rx topical cream alfuzosin 10 mg tablet,extended 10 mg PO DAILY #90 tabs 06/03/25 07/08/25 Rx release 24 hr rosuvastatin 5 mg tablet 5 mg PO DAILY #90 tabs 06/03/25 07/08/25 Rx duloxetine 30 mg capsule,delayed 30 mg PO BID #60 caps 07/08/25 07/08/25 Rx release Allergies Allergy/AdvReac Type Severity Reaction Status Date / Time No Known Drug Allergies Allergy Verified 07/08/25 15:28 Review of Systems Review of Systems Narrative: Negative except above Exam Vital Signs (past 8 hours): - 07/11/25 02:20 07/11/25 04:10 07/11/25 04:23 Temperature 98.6 F 97.8 F Pulse Rate 96 H 91 H Respiratory Rate 18 18 Blood Pressure 167/85 H 135/71 Pulse Oximetry 96 99 Oxygen Delivery Method Room Air Oxygen Flow Rate 0 0 07/11/25 07:00 Temperature 98.4 F Pulse Rate 86 Respiratory Rate 16 Blood Pressure 117/64 Pulse Oximetry 98 Oxygen Delivery Method Oxygen Flow Rate 0 Oxygen Delivery Method Room Air Oxygen Flow Rate 0 Narrative Exam Narrative: Alert elderly male fatigued in no acute distress HEENT exam is mucous membranes are moist neck supple without adenopathy lungs are clear heart is regular rate and rhythm abdomen is soft positive bowel sounds nontender extremities without cyanosis clubbing edema Objective Labs 07/11/25 04:45 07/10/25 22:36 Labs: Laboratory Results - last 24 hr 07/10/25 07/11/25 07/11/25 22:36 00:05 00:17 WBC 17.8 H RBC 2.82 L Hgb 8.7 L Hct 26.2 L MCV 92.7 MCH 30.7 MCHC 33.1 RDW 16.4 H Plt Count 161 Neut % (Auto) Not Reportable Lymph % (Auto) Not Reportable Pacific % (Auto) Not Reportable Eos % (Auto) Not Reportable Baso % (Auto) Not Reportable Lymph # (Auto) Not Reportable [place] # (Auto) Not Reportable Baso # (Auto) Not Reportable Total Counted 100 Seg Neutrophils % 77.0 H Band Neutrophils % Lymphocytes % (Manual) 4.0 L Monocytes % (Manual) 19.0 H Neutrophils # (Manual) 60429 H RBC Morphology Normal morphology Anisocytosis PT 14.1 H INR 1.2 Sodium 138 Potassium 4.5 Chloride 105 Carbon Dioxide 21 L BUN 33 H Creatinine 1.38 H Estimated GFR 50 L BUN/Creatinine Ratio 23.9 H Glucose 127 H Lactate 1.8 Calcium 9.0 Total Bilirubin 0.5 AST 25 ALT 18 Alkaline Phosphatase 73 Total Protein 7.4 Albumin 3.8 Globulin 3.6 Albumin/Globulin Ratio 1.1 Procalcitonin 0.148 Stl C. cayetanensis PCR Not detected Stool Rotavirus (PCR) Not detected Stool Adenovirus (PCR) Not detected Stool Astrovirus (PCR) Not detected Stool Cryptosporidium PCR Not detected Stl E.coli Shiga Tox PCR Not detected St Sh/Enteroin Ecoli PCR Not detected Stl Enterotoxigenic E PCR Not detected Stool EPEC (PCR) Not detected Stl E. histolytica PCR Not detected Stool Giardia Lamblia PCR Not detected Stool Sapovirus (PCR) Not detected Stl P. shigelloides PCR Not detected St Y.enterocolitica PCR Not detected Stool Vibrio (PCR) Not detected Stl Vibrio cholerae PCR Not detected Stl Enteroaggr Ecoli PCR Not detected Stl Norovirus GI/GII PCR Not detected Campylobacter (PCR) Not detected C. difficile Tox (PCR) Detected H Salmonella (PCR) Not detected 07/11/25 04:45 WBC 16.0 H RBC 2.68 L Hgb 8.3 L Hct 24.9 L MCV 92.8 MCH 30.9 MCHC 33.3 RDW 16.9 H Plt Count 151 Neut % (Auto) Not Reportable Lymph % (Auto) Not Reportable Pacific % (Auto) Not Reportable Eos % (Auto) Not Reportable Baso % (Auto) Not Reportable Lymph # (Auto) Not Reportable [place] # (Auto) Not Reportable Baso # (Auto) Not Reportable Total Counted 100 Seg Neutrophils % 66.0 Band Neutrophils % 1.0 L Lymphocytes % (Manual) 7.0 L Monocytes % (Manual) 26.0 H Neutrophils # (Manual) 01389 H RBC Morphology Not Reportable Anisocytosis 1+ H PT INR Sodium Potassium Chloride Carbon Dioxide BUN Creatinine Estimated GFR BUN/Creatinine Ratio Glucose Lactate Calcium Total Bilirubin AST ALT Alkaline Phosphatase Total Protein Albumin Globulin Albumin/Globulin Ratio Procalcitonin Stl C. cayetanensis PCR Stool Rotavirus (PCR) Stool Adenovirus (PCR) Stool Astrovirus (PCR) Stool Cryptosporidium PCR Stl E.coli Shiga Tox PCR St Sh/Enteroin Ecoli PCR Stl Enterotoxigenic E PCR Stool EPEC (PCR) Stl E. histolytica PCR Stool Giardia Lamblia PCR Stool Sapovirus (PCR) Stl P. shigelloides PCR St Y.enterocolitica PCR Stool Vibrio (PCR) Stl Vibrio cholerae PCR Stl Enteroaggr Ecoli PCR Stl Norovirus GI/GII PCR Campylobacter (PCR) C. difficile Tox (PCR) Salmonella (PCR) Assessment & Plan Assessment & Plan narrative: C difficile colitis. Patient does have an elevated white count. In's quite fatigued. There was no evidence of other infection at this time. Certainly benign exam. But does have an elevated white count. Will treat with fidaxomicin and see how that resolves. Follow his white count. Certainly if there was no improvement in white count and symptoms and fatigue we will need to consider further workup and repeat studies but I think at this point we need to give this some time. He is feeling slightly better this morning. Anemia. Patient has been anemic over the last while. But his lower at this point. Some of his P maybe came from this. No evidence for blood loss. He was guaiac negative in the emergency room. And will just have to see. Repeat in a.m.. Some of it could be from hydration. Not sure if he has had iron and B12 folate but will see what PCP recommends. He will be seeing him tomorrow. And follow from there. We will start him on PPI but I do not think he has an upper GI bleed of concern. Given his negative guaiac last night. Black stools or probably, coming from his C diff colitis. We will see how he is stabilizes. Acute fatigue. Patient much more fatigued. Probable combination of infection and anemia and overall multiple medical procedures but will have to see how things go. Hopefully responds. Will follow from there. Dehydration. Mild. We will continue gentle hydration over the next 24 hours then probably will be able to discontinue. Acute renal failure probably secondary to dehydration and infection. We will see how hydration improves this. He is numbers actually look pretty good over the last 6 months will see how he responds to treatment probably prerenal but will proceed from there. History of adenocarcinoma of the cecum. Status post surgery. As per oncology at this point but will continue to follow without change in treatment Hyperlipidemia. Will continue his medication Hypertension. I am going to hold his beta-elvin at this point his blood pressure is pretty low. And will follow Presumed depression. On duloxetine will follow DVT prophylaxis patient is possibly having bleed will hold and use SCDs Code status full. Disposition. Will have to see how he responds to treatment. Make sure he does not have any other unsuspected infection that we are not seeing I suspect he will be here at least 48 hours if not longer. I am going to hold off on physical therapy today but will be started tomorrow. He is very fatigued today. Hopefully he will be responding to treatment and will be improved and we can go from there. Patient understands. 75 minutes spent with the patient chart review orders nursing dictation Time-Based Coding :: [TOTAL MINUTES] spent with patient and on the chart (including review of chart, obtaining history, exam, reviewing outside data, placing orders, documenting exam and treatment plan, and counseling patient) on [DATE].
[2025-07-11 10:45] LABS: Add Manual Diff / Slide Review NO; Hematocrit 26.2 % (41-53); Hemoglobin 8.8 g/dL (13.5-17.5); Lymphocytes Absolute Auto 1300 /uL (1100-4500); Mean Corpuscular HGB Conc 33.7 % (30-36); Mean Corpuscular Hemoglobin 31.1 PG (26-34); Mean Corpuscular Volume 92.3 fL (80-100); Platelet Count 140 X10^3/uL (150-400)
[2025-07-11] MEDS: PANTOPRAZOLE DR 20 MG TABLET PO (10:56)
[2025-07-12 05:00] VITALS: BP 126/62; PULSE 65; RESP 16; TEMP 35.9; O2SAT 98
[2025-07-12 05:41] LABS: Alanine Aminotransferase 14 IU/L (<50); Albumin 3.1 g/dL (3.5-5.0); Albumin Globulin Ratio 1.0 (1.0-2.8); Alkaline Phosphatase 61 U/L (38-126); Blood Urea Nitrogen 24 mg/dL (9-20); Calcium 8.3 mg/dL (8.4-10.2); Carbon Dioxide 21 mmol/L (22-32); Chloride 109 mmol/L (98-107); Estimated Glomerular Filt Rate > 60 mL/min (>60); Globulin 3.2 g/dL (1.7-4.1); Glucose 96 mg/dL (70-99); HEMOLYSIS < 15 (0-50); Potassium 4.2 mmol/L (3.4-5.1); Sodium 137 mmol/L (137-145); Total Protein 6.3 g/dL (6.3-8.2)
[2025-07-12] MEDS: PANTOPRAZOLE DR 20 MG TABLET PO (05:44)
[2025-07-12 07:12] VITALS: BP 136/73; PULSE 54; RESP 16; TEMP 36.3; O2SAT 99
--- NOTE | 2025-07-12 07:15 | PM.PN.IH.1 ---
Subjective Subjective Date Patient Seen: 07/12/25 Time Patient Seen: 07:15 Interval history: Patient well known to me with persistent weakness of unexplained etiology. Did struggle with C diff colitis just after his hemicolectomy but when seen recently in the clinic denied any GI symptoms However he apparently shows evidence of proctitis with a leukocytosis on admission this time. Still testing positive for C diff. was placed on fidaxomicin for his C diff. Did have bone marrow biopsy done at the end of last week by Hematology over concerns about some undiagnosed issue causing his persistent anemia which is still certainly possible This morning patient reports that the dark liquidy kind of stool he has been having presumably through the stool ball in his rectum has improved. He feels like it is more normal firming up etcetera feels better all the way around although has not really been up out of bed Exam Vital Signs (past 8 hours): - 07/11/25 23:37 07/12/25 05:00 Temperature 96.6 F L 96.7 F L Pulse Rate 60 65 Respiratory Rate 16 16 Blood Pressure 129/72 126/62 Pulse Oximetry 98 98 Oxygen Delivery Method Room Air Oxygen Flow Rate 0 Objective Labs 07/11/25 10:33 07/12/25 04:30 Labs: Laboratory Results - last 24 hr 07/11/25 07/12/25 10:33 04:30 WBC 13.2 H RBC 2.83 L Hgb 8.8 L Hct 26.2 L MCV 92.3 MCH 31.1 MCHC 33.7 RDW 16.5 H Plt Count 140 L Neut % (Auto) 53.4 Lymph % (Auto) 10.1 L Randall % (Auto) 35.5 H Eos % (Auto) 0.6 L Baso % (Auto) 0.4 Neut # (Auto) 7100 H Lymph # (Auto) 1300 Randall # (Auto) 4700 H Eos # (Auto) 100 Baso # (Auto) 0 Sodium 137 Potassium 4.2 Chloride 109 H Carbon Dioxide 21 L BUN 24 H Creatinine 1.04 Estimated GFR > 60 BUN/Creatinine Ratio 23.1 H Glucose 96 Calcium 8.3 L Total Bilirubin 0.4 AST 24 ALT 14 Alkaline Phosphatase 61 C-Reactive Protein 7.4 H Total Protein 6.3 Albumin 3.1 L Globulin 3.2 Albumin/Globulin Ratio 1.0 [facility] Medical History C. difficile colitis Proctocolitis Right bundle branch block Peripheral neuropathy Monoclonal gammopathy Atherosclerosis of aorta Paraganglioma Lower urinary tract symptoms (LUTS) Seasonal allergies Mumps Measles Chicken pox Benign prostatic hyperplasia Esophageal reflux (07/07/03) Hypogonadism in male (05/31/17) Lung nodule (06/12/16) Mixed hyperlipidemia (06/03/15) Hypertension (02/23/11) Surgical History Status post left hemicolectomy History of lung surgery (~2011) Social History marital status: number of children: 1 household members: spouse lives independently: Yes caregiver/support person: No housing: house pets and animals: No education level: college occupational status: other Previous occupational history: [employer] travel history: recurrent leisure activities: other Smoking Status: Former smoker Tobacco: How many years used: 30 Smokeless tobacco user: other quit status: quit date established second hand exposure: No alcohol intake: current substance use type: does not use Assessment & Plan Assessment & Plan narrative: 1. C diff colitis-will need to continue on current therapy for at least 2 weeks. Overall presentation is extraordinarily unusual with a huge stool burden within the rectum he had evidence of proctitis on imaging and is still testing positive for C diff 2. Hematology-patient with persistent anemia awaiting results of his bone marrow biopsy from last week. I believe there is more going on here than just his C diff infection 3. Weakness-will have him seen by skilled therapies as this has been 1 of his major complaints that he has been unable to get up and about at home requiring more assistance than his spouse can provide as a caregiver 4. Disposition-depending on his PT/OT evaluation may benefit from some time in [facility] Time-Based Coding :: [TOTAL MINUTES] spent with patient and on the chart (including review of chart, obtaining history, exam, reviewing outside data, placing orders, documenting exam and treatment plan, and counseling patient) on [DATE]. [employer] Document charge(s): Yes Charge Codes Subsequent inpatient/observation care: [id number]
[2025-07-12] MEDS: ATORVASTATIN 20 MG TABLET 10 MG PO (08:18)
[2025-07-12] MEDS: FIDAXOMICIN 200 MG TABLET PO ×2 (08:18→20:44)
[2025-07-12] MEDS: SODIUM CHLORIDE 0.9% 1,000 ML 60 ML IV (08:29)
--- NOTE | 2025-07-12 09:37 | PT.IIE ---
Current Diagnoses Enterocolitis due to Clostridium difficile, not specified as recurrent (07/11/25) Surgical History (Last Reviewed 07/11/25 @ 10:17 by Roman Ray MD) History of lung surgery (~2011) Status post left hemicolectomy Medical History (Last Reviewed 05/05/25 @ 06:46 by José Miguel Davison MD) Atherosclerosis of aorta Benign prostatic hyperplasia C. difficile colitis Chicken pox Esophageal reflux (07/07/03) Hypertension (02/23/11) Hypogonadism in male (05/31/17) Lower urinary tract symptoms (LUTS) Lung nodule (06/12/16) Measles Mixed hyperlipidemia (06/03/15) Monoclonal gammopathy Mumps Paraganglioma Peripheral neuropathy Proctocolitis Right bundle branch block Seasonal allergies Physical Therapy Inpatient Evaluation/Re-Eval M1 PT IP Prior Functional Status Start: 07/12/25 10:39 Freq: NEEDED Status: Active Protocol: Document 07/12/25 09:37 DLM (Rec: 07/12/25 11:01 DLM Desktop) Medical Review Prior Functional Status Medical History Yes Reviewed Diet/Fluid Regular Consistency Communication WFL Mobility and Gait Independent with cane or FWW, he describes generalized weakness with multiple episodes of C-diff recently Activities of Daily Independent Living and IADL's Prior Functional His has back pain Level (Other details ) Social History Household Members spouse Living Arrangements House Number of Floors ( Two Floors Floors) Number of Stairs To 3 with rails bilaterally Enter/Railing? Home Equipment Front Wheel Walker,Straight Cane Employment Status Retired Additional Social His house has a bedroom on the first floor but he History Comment usually stays in bedroom on the second floor, he has been able to do the stairs with rail and no device M2 PT-IP Current Condition Start: 07/12/25 10:39 Freq: NEEDED Status: Active Protocol: Document 07/12/25 09:37 DLM (Rec: 07/12/25 11:01 DLM Desktop) Physical Therapy Current Condition Current Condition Evaluation Date 07/12/25 Treatment Diagnosis C-diff, dark stool, decreased activity tolerance Onset Date 07/11/25 M3 PT-IP Subjective Start: 07/12/25 10:39 Freq: NEEDED Status: Active Protocol: Document 07/12/25 09:37 DLM (Rec: 07/12/25 11:01 DLM Desktop) Subjective Physical Therapy Visit Type Type Initial Evaluation Visit Start Time 08:50 Visit Stop Time 09:37 Notes 47 min Number of AUDIT MGR Visits 0 Physical Therapy Visit Comments Patient Comments He reports his knees feel tight on the back. He feels worn out from having C-diff so long. Patient Goals Get better Therapy Pain Assessment Pain When Pain Assessed During Mobility Pain Present Pain Present Denied Pain M4 PT-IP Mobility and Gait Start: 07/12/25 10:39 Freq: NEEDED Status: Active Protocol: Document 07/12/25 09:37 DLM (Rec: 07/12/25 11:01 DLM Desktop) PT-Transfer Assessment Sit to and From Stand Sit to and from Standby Assistance,Use of Upper Extremities Stand Equipment Transfer Assistive Front Wheeled Walker Device Transfers Transfer Destination Bed,Bedside Commode Transfer Technique Stand Step Pivot Transfer Ability Level of Assist Standby Assistance Comments Mobility Comments he likes to do transfer without device but he is safer with FWW, he moves slowly with sit-stand and is dependent on UE support, demonstrates functional LE weakness with sit-stand. Pt needed to have BM on bedside commode after gait. Gait Assessment Gait Gait Assistance Standby Assistance Required: Distance (Feet) 400 Able to Maintain Yes Weight Bearing Status During Gait Assistive Devices Assistive Device Front Wheeled Walker Factors Limiting Gait Function Factors Limiting Decreased Activity Tolerance,Poor Balance Gait Function Comments Gait Comments good balance and tolerance for gait with FWW, he is not safe without device Stair Climbing Assessment Comments Stair Climbing pt reports able to do stairs at home, not tested this Comments visit due to pt needing to get back to room to have BM PT-Balance Assessment Sitting Balance and Reactions Static Sitting Normal Balance Ability Dynamic Sitting Normal Balance Ability Standing Balance and Reactions Static Standing Good Balance Ability Dynamic Standing Good Balance Ability Device Used Fww M5 PT-IP Objective Assessments Start: 07/12/25 10:39 Freq: NEEDED Status: Active Protocol: Document 07/12/25 09:37 DLM (Rec: 07/12/25 11:01 DLM Desktop) Orientation Orientation/Cognition Level of Alertness Alert Orientation Name,Age,Birthday,Month,Date,Year,Day of Week,Place, Situation Language Function No Deficits Noted Ability Safety Awareness Decreased Safety Awareness Memory Description No Deficits Noted Gross Range of Motion Upper Extremity ROM Assessment Within Functional Limits Lower Extremity ROM Assessment Within Functional Limits Impairments He describes stiffness posterior knees bilaterally Strength Upper Extremity Strength Assessment Within Functional Limits Lower Extremity Strength Assessment Within Functional Limits Comments Strength Comments functional LE weakness with sit-stand Coordination Assessment Gross Coordination Gross Coordination Impaired Assessment Foot Tapping Test Minimal Impairment Sensation Assessment Sensation Gross Sensation Right LE Impaired,Left LE Impaired Sensation Numbness Description Muscle Tone Muscle Tone WNL Yes M6 PT-IP Treatment Start: 07/12/25 10:39 Freq: NEEDED Status: Active Protocol: Document 07/12/25 09:37 DLM (Rec: 07/12/25 11:01 DLM Desktop) Physical Therapy Treatment Education Education Provided Safety Other Treatments Other Treatment Pt left with nurses aide on bedside commode with clean Performed up after BM. M7 PT-IP Assessment and Plan Start: 07/12/25 10:39 Freq: NEEDED Status: Active Protocol: Document 07/12/25 09:37 DLM (Rec: 07/12/25 11:01 DLM Desktop) PT Summary Assessment and Plan Potential Rehabilitation Good Potential Status of Condition Evolving at Evaluation Summary Impairments Strength,Balance,Coordination,Sensation,Bed Mobility, Transfers,Gait,Activity Tolerance Assessment Summary Justyn is alert and up in room with nursing. He was admitted with dark stool. He tested positive for C-diff again. Hgb 8.8. He shows functional weakness in LE's with sit-stand. He tolerated gait in the halls well with FWW. Will follow for 1-2 more visits. He appears to be progressing well this admission. Recommend discharge home with his with home health Physical Therapy. Goals Bed Mobility Goal Independent Transfer Goal Independent,Front Wheeled Walker Gait Goal Independent,Front Wheel Walker Gait Distance 300 feet Other Goals 3 steps with rail and SBA Days to Meet Goals 3 Frequency of Treatment Frequency Of Once a Day Treatment Treatment Plan Physical Therapy Bed Mobility Training,Transfer Training,Gait Training, Treatment Plan Therapeutic Exercise,Balance Retraining,Discharge Planning,Neuromuscular Re-ed Precautions Other Precautions peripheral neuropathy in distal LE's C-diff (+), 3rd episode Recommendations To Nursing Amount of Assist Standby Assistance Needed Discharge Recommendations PT Discharge Home with Assistance,Home Health Recommendations Other Discharge has supportive Recommendations Transportation Needs Private Vehicle at Discharge - PT assist 1
--- NOTE | 2025-07-12 14:25 | OT.IP.EVAL ---
Current Diagnoses Enterocolitis due to Clostridium difficile, not specified as recurrent (07/11/25) Past Medical History (Last Reviewed 05/05/25 @ 06:46 by José Miguel Davison MD) Atherosclerosis of aorta Benign prostatic hyperplasia C. difficile colitis Chicken pox Esophageal reflux (07/07/03) Hypertension (02/23/11) Hypogonadism in male (05/31/17) Lower urinary tract symptoms (LUTS) Lung nodule (06/12/16) Measles Mixed hyperlipidemia (06/03/15) Monoclonal gammopathy Mumps Paraganglioma Peripheral neuropathy Proctocolitis Right bundle branch block Seasonal allergies Surgical History (Last Reviewed 07/11/25 @ 10:17 by Roman Ray MD) History of lung surgery (~2011) Status post left hemicolectomy Occupational Therapy Inpatient Evaluation/Re-Eval M1 OT IP Prior Functional Status Start: 07/12/25 14:10 Freq: Status: Active Protocol: Document 07/12/25 13:20 MINDI (Rec: 07/12/25 14:25 [facility]) Medical Review Prior Functional Status Medical History Yes Reviewed Diet/Fluid Regular Consistency Communication WFL Mobility and Gait Independent with cane or FWW, he describes generalized weakness with multiple episodes of C-diff recently Activities of Daily Independent with BADLs, grocery shopping, medication Living and IADL's mgmt, and housework. Until recent episodes with c-diff, reports he was walking his dog 1x/day for up to 1.5 miles. Pt has 5 acres to maintain. Prior Functional His has back pain Level (Other details ) Social History Household Members spouse Living Arrangements House Number of Floors ( Two Floors Floors) Number of Stairs To 3 with rails bilaterally Enter/Railing? Home Environment Standard Height Toilet,Walk in Shower Home Equipment Front Wheel Walker,Straight Cane Employment Status Retired Additional Social His house has a bedroom on the first floor but he History Comment usually stays in bedroom on the second floor, he has been able to do the stairs with rail and no device. Pt reports he's been having increasing difficulty getting off the commode and is considering putting in a grab bar. M2 OT-IP Current Condition Start: 07/12/25 14:10 Freq: Status: Active Protocol: Document 07/12/25 13:20 MINDI (Rec: 07/12/25 14:25 [facility]) Occupational Therapy Current Condition Current Condition Evaluation Date 07/12/25 Treatment Diagnosis weakness, colitis, c-diff, decreased self care Diagnosis Onset Date 07/11/25 Post Operative Precautions Other Precautions C-diff M3 OT- IP Subjective and Pain Start: 07/12/25 14:10 Freq: Status: Active Protocol: Document 07/12/25 13:20 KATHLEENDALICECILECLEM (Rec: 07/12/25 14:25 [facility]) OT- Subjective Occupational Therapy Visit Type Type Initial Evaluation Visit Start Time 13:20 Visit Stop Time 14:05 Occupational Therapy Visit Comments Patient Comments Pt was reclined in bed on entrance of OT and agreeable to participating in OT eval. Pt reports being concerned about losing his strength, especially in his legs, and is worried about being able to build it back up. Patient/Caregiver To get stronger and go home. Goals OT Pain Assessment Pain Present Pain Present Denied Pain M4 OT- IP ADL's Start: 07/12/25 14:10 Freq: Status: Active Protocol: Document 07/12/25 13:20 KATHLEENDALIFAITH (Rec: 07/12/25 14:25 [facility]) OT CPD-Mnoe-[id number] Comments OT Self-Feeding not a meal time Comments OT ADL-Grooming General Evaluation Grooming Ability Independent OT ADL-Oral Care General Eval Oral Care Ability Independent OT ADL-Dressing General Eval Lower Body Dressing Minimal Assistance Ability Comments OT Dressing Comments Pt was able to doff socks I'ly but required min A to start on his foot. Pt reports that LB dressing is difficult for him at baseline. OT discussed LB AE with pt, pt agrees that he would like to be educated on how to use for improved safety and I. OT ADL-Toileting General Evaluation Toileting Ability Standby Assistance Comments OT Toileting Pt stood to urinate at commode with SBA for balance. Pt Comments manages clothing and hygiene. OT ADL-Bathing Comments OT Bathing Comments not observed M5 OT- IP IADL's Start: 07/12/25 14:10 Freq: Status: Active Protocol: Document 07/12/25 13:20 KATHLEENDALIFAITH (Rec: 07/12/25 14:25 [facility]) OT-Instrumental Activities of Daily Living Deficits IADL Deficits No Deficits Identified Home Safety Awareness Awareness of Need Good Awareness for Assistance at Home Ability to Problem Able to Problem Solve Solve Emergency Situations Medication Management Medication No Deficits Identified Management Money Management Money Management No Deficits Identified Meal Preparation Meal Preparation No Deficits Identified Open Soaper Tender Open Soaper Tender No Deficits Identified Driving Driving Caregiver Provides Assist M6 OT- IP Functional Cognition Start: 07/12/25 14:10 Freq: Status: Active Protocol: Document 07/12/25 13:20 [facility] (Rec: 07/12/25 14:25 [facility]) Cognitive Factors Limiting Selfcare Function Cognitive Ability Level of Alertness Alert Patient Orientation Name,Age,Birthday,Month,Year,Place,Situation Attention Span Capable of Focused Attention,Capable of Sustained Ability Attention Ability to Follow Able to Follow One Step Commands,Able to Follow Multi- Commands Step Commands Memory Description No Deficits Noted Safety Awareness No Deficits Noted Problem Solving No deficits Noted Ability Executive Function No Deficits Noted Ability Abstract Thinking No Deficits Noted Ability OT- Vision and Hearing OT- Hearing Assessment OT- Hearing WFL Assessment OT- Vision Assessment Visual Acuity WFL,Glasses For Reading M7 OT- IP Mobility and Balance Start: 07/12/25 14:10 Freq: Status: Active Protocol: Document 07/12/25 13:20 [facility] (Rec: 07/12/25 14:25 [facility]) OT- Bed Mobility Assessment Supine to Sit Supine to Sit Assist Standby Assistance Sit to Supine Sit to Supine Assist Contact Guard Assistance OT-Transfer Assessment Sit to and From Stand Sit to and from Contact Guard Assistance Stand Transfers Transfer Ability Standby Assistance,Contact Guard Assistance Technique Transfer Destination Bed,Toilet Transfer Technique Stand Step Pivot Devices Transfer Assistive Gait Belt,Front Wheeled Walker Devices Comments Mobility Comments Pt demonstrates good safety awareness keeping one hand on bed when pushing up to stand and reaching back for surface before sitting. OT- Gait Assessment Gait Gait Assistance Standby Assistance,Contact Guard Assist Required: Distance (Feet) 25 Assistive Devices Assistive Device Gait Belt,Front Wheeled Walker OT- Balance Assessment Sitting Balance and Reactions Static Sitting Normal Balance Ability Dynamic Sitting Normal Balance Ability Standing Balance and Reactions Static Standing Good Balance Ability Dynamic Standing Good Balance Ability M8 OT- IP Objective Assessments Start: 07/12/25 14:10 Freq: Status: Active Protocol: Document 07/12/25 13:20 MINDI (Rec: 07/12/25 14:25 MINDI Desktop) OT Gross Range of Motion Upper Extremity Range of Motion Assessment Bilaterally Impaired ROM Impairments B shoulders ~120 OT Strength Hand Paralegal Strength Hand Dominance Right Comments Strength Comments Within available ROM pt demonstrates 4+ to 5 UE strength in all planes of mvmt OT Sensation Assessment Comments Summary Comments No deficits in UB, pt reports B LE neuropathy Edema Edema Absent M9 OT- IP Assessment and Plan Start: 07/12/25 14:10 Freq: Status: Active Protocol: Document 07/12/25 13:20 MINDI (Rec: 07/12/25 14:25 MINDI Desktop) OT Summary Assessment and Plan Potential Rehabilitation Excellent Potential Analytic Complexity Low at Evaluation Summary OT Impairments Range of Motion,Balance,Functional Mobility,Dressing, Toileting,Bathing,Toilet Transfers,Shower Transfers, Activity Tolerance Progress Towards Progressing Toward Goals Goals Assessment Summary Pt is an 84 yo M who has had multiple 3 rounds of C- diff recently. Pt had sx for clonic adenocarcinoma on . Pt reports that he has been becoming increasingly weak with each round of C-diff and he is concerned about being able to build back his strength. Pt feels wobbly when standing for long periods of time or when amb for his ADL needs. Pt has a difficult time dressing his LB at baseline and would benefit from education on LB AE. OT discussed bathroom modifications for improved safety and I at home (ex. raised toilet seat with handles, grab bars, shower seat ). Pt presents with decreased BADLs, decreased activity tolerance, and impaired functional mobility. Skilled OT services are appropriate to address pt deficits and promote return to PLOF. Recommend dc home with HH. Goals Dressing Goal Independent,Pathology Secretary/Transcriptionist,Sock Aid Toileting Goal Independent Bathing Goal Independent Toilet Transfer Goal Independent Shower Transfer Goal Independent Days to Meet Goals 3 Frequency of Treatment Other frequency 5x/wk Treatment Plan OT Treatment Plan ADL Training,Functional Mobility,Therapeutic Exercises, Patient/Family Education,Discharge Planning Discharge Recommendations OT Discharge Home,Home Health Recommendations Transportation Needs Private Vehicle at Discharge
[2025-07-12 16:13] VITALS: BP 144/86; PULSE 56; RESP 16; TEMP 36.5; O2SAT 98
--- NOTE | 2025-07-12 16:33 | CM.DANOTE ---
DCP Assessment note pt is a 84yo M here with CDIff. recent admissions this fall for similar concerns, 3rd bout of Cdiff? per chart review, less BMs today. per PT, walked good in halls. cleared for home. STRETCHING PRESS OPERATOR spoke with spouse Annette over the phone. reviewed DCP options. spouse reports its been harder for her to care for him at home, understands he's doing too well for SNF. reports they have a walker but pt won't use it. agreeable to taking pt home. Open to HH- no preference. [facility] due to rotating vendor calendar. asks this STRETCHING PRESS OPERATOR call her Tu morning with new of if pt is discharging or not so she can come get home. per spouse, lives indep in [place] but recently has been weak with all the cdiff. was looking into hiring CGs but canceled that appt today with pt being hospitalized P: need [facility] ref tomorrow. anticipate dc home when stable, maybe tomorrow? will continue to follow closely for DCP Coordination OBED Talley Discharge Planning/Care Management Advanced directive, confirm from FAMILY Start: 07/11/25 03:17 Freq: Q24H Status: Active Protocol: Document 07/11/25 03:21 MW (Rec: 07/11/25 03:21 MW [id number]) Advance Directive, confirm on record Time 03:00 Person contacted patient Copy received No CM Discharge Assessment Start: 07/11/25 02:01 Freq: Status: Active Protocol: Document 07/12/25 16:21 SL (Rec: 07/12/25 16:24 SL [id number]) Discharge Planning Assessment Assigned Discharge OBED Vigil Education Finance Processor Provider Davison Insurance Medicare Insurance Comment AARP secondary DPOA/Assigned annette, spouse Designee Name Contact Information [phone] Advance Directives? Yes Advance Directives No on File History Provided By Patient,Medical Record Prior Living House Arrangements Household Members spouse Independent with ADL Yes 's Is patient alert and Yes oriented? Patient/Family Home with Home Health Preference Comment [facility] Discharge Plan Home with Home Health Review Status In Process Please Provide Date 07/12/25 Initial DC Assessment Was Performed Next Review Type Continued Stay Review
[2025-07-12 19:20] VITALS: BP 149/75; PULSE 66; RESP 20; TEMP 36.4; O2SAT 98
--- NOTE | 2025-07-13 02:23 | PC.NURSE ---
third shift lieutenant: Patient is alert to self, date, place, and situation. Patient is impulsive and attempts to get OOB without using call-light, educated patient on using call-light for safety, patient verbalizes understanding however is not using call-light. Patient stating I can't wait to get out of this zoo. Bed alarm is on, fall precautions in place.
[2025-07-13 03:00] VITALS: BP 145/59; PULSE 53; RESP 20; TEMP 36.4; O2SAT 98
[2025-07-13] MEDS: PANTOPRAZOLE DR 20 MG TABLET PO (05:41)
--- NOTE | 2025-07-13 07:22 | PM.PN.IH.1 ---
Subjective Subjective Date Patient Seen: 07/13/25 Time Patient Seen: 07:23 Interval history: Uneventful day yesterday. Reports stools continued to normalize Up with skilled therapies yesterday felt to be mostly independent. Likely will need minimal assistance at home, might well benefit from some home PT OT Urinating frequently. Hospital does not have his Uroxatral that he normally takes for BPH Exam Vital Signs (past 8 hours): - 07/13/25 03:00 Temperature 97.6 F Pulse Rate 53 L Respiratory Rate 20 Blood Pressure 145/59 H Pulse Oximetry 98 Oxygen Flow Rate 0 Oxygen Delivery Method Room Air Oxygen Flow Rate 0 Objective Labs 07/11/25 10:33 07/12/25 04:30 [facility] Medical History C. difficile colitis Proctocolitis Right bundle branch block Peripheral neuropathy Monoclonal gammopathy Atherosclerosis of aorta Paraganglioma Lower urinary tract symptoms (LUTS) Seasonal allergies Mumps Measles Chicken pox Benign prostatic hyperplasia Esophageal reflux (07/07/03) Hypogonadism in male (05/31/17) Lung nodule (06/12/16) Mixed hyperlipidemia (06/03/15) Hypertension (02/23/11) Surgical History Status post left hemicolectomy History of lung surgery (~2011) Social History marital status: number of children: 1 household members: spouse lives independently: Yes caregiver/support person: No housing: house pets and animals: No education level: college occupational status: other Previous occupational history: [employer] travel history: recurrent leisure activities: other Smoking Status: Former smoker Tobacco: How many years used: 30 Smokeless tobacco user: other quit status: quit date established second hand exposure: No alcohol intake: current substance use type: does not use Assessment & Plan Assessment & Plan narrative: 1. C diff colitis-will need to continue on current therapy for at least 2 weeks. Overall presentation is extraordinarily unusual with a huge stool burden within the rectum he had evidence of proctitis on imaging and is still testing positive for C diff, but reporting improvement in his overall stool I guess there must be some flow through loose stool etcetera. 2. Hematology-patient with persistent anemia awaiting results of his bone marrow biopsy from last week. I believe there is more going on here than just his C diff infection 3. Weakness-PT and OT both feel like he is doing quite well no need for specific assistance, might benefit from home PT OT, which would be my assessment as well 4. Disposition-should be able to return home in the next 24-48 hours to continue on the oral fidaxomicin for his C diff for at least 2 weeks as above Time-Based Coding :: [TOTAL MINUTES] spent with patient and on the chart (including review of chart, obtaining history, exam, reviewing outside data, placing orders, documenting exam and treatment plan, and counseling patient) on [DATE]. PROFEE Copper Flotation Operator Document charge(s): Yes Charge Codes Subsequent inpatient/observation care: [id number]
[2025-07-13 09:10] VITALS: BP 144/82; PULSE 51; RESP 16; TEMP 36.3; O2SAT 99
[2025-07-13] MEDS: ATORVASTATIN 20 MG TABLET 10 MG PO (09:43)
[2025-07-13] MEDS: TAMSULOSIN 0.4 MG CAPSULE PO ×2 (09:43→20:52)
[2025-07-13] MEDS: FIDAXOMICIN 200 MG TABLET PO ×2 (09:43→20:52)
--- NOTE | 2025-07-13 13:05 | OT.IP.TRT ---
Current Diagnoses Enterocolitis due to Clostridium difficile, not specified as recurrent (07/11/25) Occupational Therapy Treatment Note M2 OT-IP Current Condition Start: 07/12/25 14:10 Freq: Status: Active Protocol: Document 07/12/25 13:20 KATHLEENDALICECILECLEM (Rec: 07/12/25 14:25 MINDI Desktop) Occupational Therapy Current Condition Current Condition Evaluation Date 07/12/25 Treatment Diagnosis weakness, colitis, c-diff, decreased self care Diagnosis Onset Date 07/11/25 Post Operative Precautions Other Precautions C-diff M3 OT- IP Subjective and Pain Start: 07/12/25 14:10 Freq: Status: Active Protocol: Document 07/13/25 12:53 MINDI (Rec: 07/13/25 13:05 MINDI [id number]) OT- Subjective Occupational Therapy Visit Type Type Treatment Note Visit Start Time 11:17 Visit Stop Time 12:08 Occupational Therapy Visit Comments Patient Comments Pt was sitting EOB and beginning to stand on entrance of OT. Pt was agreeable to participating in skilled OT services. Patient/Caregiver To get stronger and go home. Goals OT Pain Assessment Pain Present Pain Present Denied Pain M4 OT- IP ADL's Start: 07/12/25 14:10 Freq: Status: Active Protocol: Document 07/13/25 12:53 KATHLEENDALIFAITH (Rec: 07/13/25 13:05 MINDI [id number]) OT [id number] Comments OT Self-Feeding not a meal time Comments OT ADL-Grooming General Evaluation Grooming Ability Independent Comments OT Grooming Comments Pt combed his hair sink side to include gathering his supplies. OT ADL-Oral Care General Eval Oral Care Ability Independent OT ADL-Dressing General Eval Lower Body Dressing Standby Assistance,Minimal Assistance Ability Comments OT Dressing Comments OT educated pt on use of health commissioner to doff socks and to don LB pants as well as sock aid to don socks. Pt then used the health commissioner to doff his socks with S. He used the health commissioner to don his pants with S. Pt required min A to correctly apply his sock to the sock aid and to get the sock to come off of the device and on to his foot. OT ADL-Toileting General Evaluation Toileting Ability Independent Comments OT Toileting Pt stood and used urinal without assist. Comments OT ADL-Bathing Comments OT Bathing Comments not observed M5 OT- IP IADL's Start: 07/12/25 14:10 Freq: Status: Active Protocol: Document 07/12/25 13:20 KATHLEENORCECILECLEM (Rec: 07/12/25 14:25 [facility] OT-Instrumental Activities of Daily Living Deficits IADL Deficits No Deficits Identified Home Safety Awareness Awareness of Need Good Awareness for Assistance at Home Ability to Problem Able to Problem Solve Solve Emergency Situations Medication Management Medication No Deficits Identified Management Money Management Money Management No Deficits Identified Meal Preparation Meal Preparation No Deficits Identified Gaming Director Gaming Director No Deficits Identified Driving Driving Caregiver Provides Assist M6 OT- IP Functional Cognition Start: 07/12/25 14:10 Freq: Status: Active Protocol: Document 07/12/25 13:20 KATHLEENORCECILECLEM (Rec: 07/12/25 14:25 [facility]) Cognitive Factors Limiting Selfcare Function Cognitive Ability Level of Alertness Alert Patient Orientation Name,Age,Birthday,Month,Year,Place,Situation Attention Span Capable of Focused Attention,Capable of Sustained Ability Attention Ability to Follow Able to Follow One Step Commands,Able to Follow Multi- Commands Step Commands Memory Description No Deficits Noted Safety Awareness No Deficits Noted Problem Solving No deficits Noted Ability Executive Function No Deficits Noted Ability Abstract Thinking No Deficits Noted Ability OT- Vision and Hearing OT- Hearing Assessment OT- Hearing WFL Assessment OT- Vision Assessment Visual Acuity WFL,Glasses For Reading M7 OT- IP Mobility and Balance Start: 07/12/25 14:10 Freq: Status: Active Protocol: Document 07/13/25 12:53 [facility] (Rec: 07/13/25 13:05 [facility] [id number]) OT-Transfer Assessment Sit to and From Stand Sit to and from Minimal Assistance Stand Transfers Transfer Ability Minimal Assistance Technique Transfer Destination Bed,Chair Transfer Technique Stand Step Pivot Devices Transfer Assistive Gait Belt,Front Wheeled Walker Devices Comments Mobility Comments Pt attempted all tfs without using his hands. Pt is does not have the strength to stand without using his hands safely. OT educated pt on pushing up into standing with at least 1 hand and to reach back for the chair with 1 hand. OT- Gait Assessment Gait Gait Assistance Standby Assistance Required: Distance (Feet) 25 Assistive Devices Assistive Device Gait Belt,Front Wheeled Walker Comments Gait Ability Pt amb throughout his room with FWW to perform BADLs Comments with S OT- Balance Assessment Sitting Balance and Reactions Static Sitting Normal Balance Ability Dynamic Sitting Normal Balance Ability Standing Balance and Reactions Static Standing Good Balance Ability Dynamic Standing Good Balance Ability M8 OT- IP Objective Assessments Start: 07/12/25 14:10 Freq: Status: Active Protocol: Document 07/12/25 13:20 [facility] (Rec: 07/12/25 14:25 [facility] Desktop) OT Gross Range of Motion Upper Extremity Range of Motion Assessment Bilaterally Impaired ROM Impairments B shoulders ~120 OT Strength Hand Vascular Sonographer Strength Hand Dominance Right Comments Strength Comments Within available ROM pt demonstrates 4+ to 5 UE strength in all planes of mvmt OT Sensation Assessment Comments Summary Comments No deficits in UB, pt reports B LE neuropathy Edema Edema Absent M9 OT- IP Assessment and Plan Start: 07/12/25 14:10 Freq: Status: Active Protocol: Document 07/13/25 12:53 [facility] (Rec: 07/13/25 13:05 [facility] [id number]) OT Summary Assessment and Plan Potential Rehabilitation Excellent Potential Analytic Complexity Low at Evaluation Summary OT Impairments Range of Motion,Balance,Functional Mobility,Dressing, Toileting,Bathing,Toilet Transfers,Shower Transfers, Activity Tolerance Progress Towards Progressing Toward Goals Goals Assessment Summary Pt required increased assistance with functional tfs today. Pt needed cues for safety awareness to push up from surfaces and t reach back to chair. OT educated pt on use of LB AE for LB dressing, pt demonstrates use of the health commissioner well but needs assist and continued review for use of sock aid. Pt is slow at performing tasks, requiring increased time. Pt was left sitting EOB with all needs met and in reach, bed exit alarm set , and nsg notified. Recommend dc home with HH. Goals Dressing Goal Independent,Cabin Cleaner,Sock Aid Toileting Goal Independent Bathing Goal Independent Toilet Transfer Goal Independent Shower Transfer Goal Independent Days to Meet Goals 3 Frequency of Treatment Other frequency 5x/wk Treatment Plan OT Treatment Plan ADL Training,Functional Mobility,Therapeutic Exercises, Patient/Family Education,Discharge Planning Discharge Recommendations OT Discharge Home,Home Health Recommendations Transportation Needs Private Vehicle at Discharge
--- NOTE | 2025-07-13 14:37 | CM.DPNOTE ---
DCP note LIME BOILER reviewed EMR per Laney note dc in next 24-48 hrs home with spouse and HH. LIME BOILER spoke with spouse on the phone, agreeable to home tomorrow vs Thurs with [facility]. asked CM team call her in morning with the plan. LIME BOILER sent ref to [facility] for review, f2f and HH order done and sent. P: Dc tomorrow vs Thurs with spouse support and [facility]. Will continue to follow closely for DCP coordination OBED Talley
--- NOTE | 2025-07-13 15:20 | PT.IPTN ---
Current Diagnoses Enterocolitis due to Clostridium difficile, not specified as recurrent (07/11/25) Physical Therapy Treatment Note M2 PT-IP Current Condition Start: 07/12/25 10:39 Freq: NEEDED Status: Active Protocol: Document 07/12/25 09:37 DLM (Rec: 07/12/25 11:01 DLM Desktop) Physical Therapy Current Condition Current Condition Evaluation Date 07/12/25 Treatment Diagnosis C-diff, dark stool, decreased activity tolerance Onset Date 07/11/25 M3 PT-IP Subjective Start: 07/12/25 10:39 Freq: NEEDED Status: Active Protocol: Document 07/13/25 15:27 NW (Rec: 07/13/25 15:45 NW [id number]) Subjective Physical Therapy Visit Type Type Treatment Note Visit Start Time 14:48 Visit Stop Time 15:20 Notes 32 min Physical Therapy Visit Comments Patient Comments Pt feels his mobility is at baseline. Notes feeling steady on feet, but as he ages has pains in both hips. Patient Goals Return home. Therapy Pain Assessment Pain When Pain Assessed During Mobility Pain Present Pain Present Pain Reported Location Bilateral Hip Description Aching,Dull,With Movement Pain Management Modification of Treatment Techniques M4 PT-IP Mobility and Gait Start: 07/12/25 10:39 Freq: NEEDED Status: Active Protocol: Document 07/13/25 15:27 NW (Rec: 07/13/25 15:45 NW [id number]) PT-Bed Mobility Assessment Rolling Level of Assist Independent Supine to Sit Supine to Sit Independent Sit to Supine Sit to Supine Independent Scooting Scooting to Edge of Independent Bed PT-Transfer Assessment Sit to and From Stand Sit to and from Standby Assistance Stand Equipment Transfer Assistive Front Wheeled Walker Device Transfers Transfer Destination Bed Transfer Technique Stand Step Pivot Transfer Ability Level of Assist Standby Assistance Comments Mobility Comments Requires cues for UE placement and for safety awareness while navigating the room with AD placement and for usage after tasks. Good eccentric control with transfers. Gait Assessment Gait Gait Assistance Standby Assistance Required: Distance (Feet) 235 Able to Maintain Yes Weight Bearing Status During Gait Assistive Devices Assistive Device Gait Belt,Front Wheeled Walker Gait Deviations General Gait Pattern Wide Based Gait Comments Gait Comments Good velocity and ayala with adequate pathfinding for AD management. Stair Climbing Assessment Evaluation Level of Assist On Contact Guard Assistance Stairs Devices Stair Climbing Right Railing Assistive Devices Technique/Endurance Stair Climbing Descend Direction Stair Climbing Step to Step Technique Number of Steps 3 Climbed Stair Climbing Set # 1 Repetitions (reps) Comments Stair Climbing While descending pt self selects step to pattern, with Comments ascent step over. Increased UE use with dynamic knee valgus upon descent. PT-Balance Assessment Sitting Balance and Reactions Static Sitting Normal Balance Ability Dynamic Sitting Normal Balance Ability Standing Balance and Reactions Static Standing Good Balance Ability Dynamic Standing Fair Balance Ability Device Used FWW and external surfaces Comments Other Balance Tests/ intermittently uses external surfaces with dynamic Deviations/Treatment balance tasks with WBOS : M5 PT-IP Objective Assessments Start: 07/12/25 10:39 Freq: NEEDED Status: Active Protocol: Document 07/12/25 09:37 DLM (Rec: 07/12/25 11:01 DLM Desktop) Orientation Orientation/Cognition Level of Alertness Alert Orientation Name,Age,Birthday,Month,Date,Year,Day of Week,Place, Situation Language Function No Deficits Noted Ability Safety Awareness Decreased Safety Awareness Memory Description No Deficits Noted Gross Range of Motion Upper Extremity ROM Assessment Within Functional Limits Lower Extremity ROM Assessment Within Functional Limits Impairments He describes stiffness posterior knees bilaterally Strength Upper Extremity Strength Assessment Within Functional Limits Lower Extremity Strength Assessment Within Functional Limits Comments Strength Comments functional LE weakness with sit-stand Coordination Assessment Gross Coordination Gross Coordination Impaired Assessment Foot Tapping Test Minimal Impairment Sensation Assessment Sensation Gross Sensation Right LE Impaired,Left LE Impaired Sensation Numbness Description Muscle Tone Muscle Tone WNL Yes M6 PT-IP Treatment Start: 07/12/25 10:39 Freq: NEEDED Status: Active Protocol: Document 07/13/25 15:27 NW (Rec: 07/13/25 15:45 NW [id number]) Physical Therapy Treatment Education Education Provided Safety Other Treatments Other Treatment Education on transfer UE placement/techniques and to Performed continue FWW use at home for all mobility. M7 PT-IP Assessment and Plan Start: 07/12/25 10:39 Freq: NEEDED Status: Active Protocol: Document 07/13/25 15:27 NW (Rec: 07/13/25 15:45 NW [id number]) PT Summary Assessment and Plan Potential Rehabilitation Good Potential Status of Condition Stable at Evaluation Summary Impairments Balance,Transfers,Gait Progress Towards Goals Met Goals Assessment Summary Justyn is alert and eager to participate with therapy. He is independent in bed mobility from a flat bed and SBA with safety cues for transfers with FWW. Pt ambulated 235 ft with FWW at SBA and CGA with stair navigation for 3 steps. Pt is at functional baseline with no signs of exertions at the end of the session. Recommending home health upon discharge for further progressions with interventions. Goals Bed Mobility Goal Independent Transfer Goal Independent,Front Wheeled Walker Gait Goal Independent,Front Wheel Walker Gait Distance 300 feet Other Goals 3 steps with rail and SBA Days to Meet Goals 3 Frequency of Treatment Frequency Of Discharge Treatment Treatment Plan Physical Therapy Bed Mobility Training,Transfer Training,Gait Training, Treatment Plan Therapeutic Exercise,Balance Retraining,Discharge Planning,Neuromuscular Re-ed Other Pt being discharged from PT services as he has met his Recommendations and goals and is at functional baseline. Pt is to continue Next [facility] with home health services to continue to progress mobility and balance within the home and community setting. Precautions Other Precautions peripheral neuropathy in distal LE's C-diff (+), 3rd episode Recommendations To Nursing Amount of Assist Standby Assistance Needed Discharge Recommendations PT Discharge Home with Assistance,Home Health Recommendations Other Discharge has supportive Recommendations Transportation Needs Private Vehicle at Discharge - PT assist 1
--- NOTE | 2025-07-13 16:43 | DIET.CONS ---
Dietary Consultation Note Admission Date: 07/11/2025 01:45 Assessment: 84 y M admitted for c diff. Consulted for multiple c diff infections. Met with pt at bedside who reports appetite has been better than it has been in awhile, since March. Tries to drink Ensures at home. Mainly has been adding in more ice cream, yogurts, and pb. NFPE with moderate loss in temples and deltoid, moderate subcutaneous fat loss in buccal and orbital fat pads. Ht: 182.88 cm Wt: 71 kg BMI: 21.2 UBW: 170# (77kg) before March, 70 kg 04/14/25; reports at PCP's office trending 160-165# last 2 months Last BM: 07/12/25 (07/12/25 20:00) MNA: 9 Chase Score: 20 Diet: 07/11/25 Breakfast General (Regular) Diet Diet Modifications: Food Texture: Level 7 - Regular Liquid Consistency: Level 0 - Thin Nutrition Percent Meal Consumed 75% 07/13/25 14:00 Percent Meal Consumed 45 07/12/25 14:00 Percent Meal Consumed 50% 07/12/25 09:00 Percent Meal Consumed 25% 07/11/25 18:40 Labs: RBC 2.83 X10^6/uL (4.5-5.9) L 07/11/25 10:33 Hgb 8.8 g/dL (13.5-17.5) L 07/11/25 10:33 Hct 26.2 % (41-53) L 07/11/25 10:33 Creatinine 1.04 mg/dL (0.66-1.25) 07/12/25 04:30 Lactate 1.8 mmol/L (0.7-2.1) 07/11/25 00:17 Nutrition Diagnosis: Moderate acute protein calorie malnutrition r/t changes in GI tract structure/function as evidenced by BMI underweight for age (21.2), moderate muscle wasting (temples, deltoid) and moderate subcutaneous fat loss (buccal and orbital fat pads), hx of colon cancer with hemicolectomy and recurrent c. diff colitis Interventions: Ensure+ BID Encouraged consistent Ensure intake at home and mixing with ice cream and/or pb for better taste, discussed ways to add extra calorie and protein intake day to day intakes and small freq eating EER: 1900 kcals (27 kcals/kg per BMI) 75 g protein (1g/kg adjsuted IBW) Monitoring/Evaluations: PO intakes Electronically Signed by: Amparo Shabazz 07/13/25 16:43 Clinical Dietitian [address] [address]
[2025-07-13 17:00] VITALS: BP 171/88; PULSE 75; RESP 16; TEMP 36.4; O2SAT 98
[2025-07-13 18:52] VITALS: BP 131/67; PULSE 59
--- NOTE | 2025-07-13 21:56 | PC.NURSE ---
2114 Patient got out of bed without using call armando. Nurse rushed in to remind pt to use call armando when needing assistance or getting out of bed. Patient responded by stating do not give me that crap. Patient sat at edge of bed briefly before using bed side table to assist himself up. Patient refused to use the walker. Pt reached for the end of the bed side table to grab and support himself up. Patient states nurse has attitude and is chewing out the patient. Nurse educated patient on safety and use of call armando. Patient is a risk for falls. Patient declined the walker and took a few steps to the side. Nurse unable to get patient to use walker. Patient then asks for walker. Nurse brought walker over and then patient began to use the urinal. Patient unable to void, apoligized to nurse for behaviour. Nurse apoligized back to the patient. Patient then settled back into bed and asked for a walk after they calm down. Nurse agreed, encourage patient to use call armando when ready. 2144 Patient's bed alarm rang, nurse helping SCHOOL PHYSICAL THERAPIST with personal care. Nurse completed personal care and SCHOOL PHYSICAL THERAPIST was assisting patient up to go for a walk by the time nurse exited the other patient's room. Patient approached nurse at nursing station and began the conversation about patient being chewed out and asked nurse do you know how the sphincter muscle works? Nurse jeannie encouraged patient to report to finishing supervisor plastic sheets as the nurse and patient had already discussed the matter and nurse was in the middle of providing care. Patient rounded the unit with assistance from SCHOOL PHYSICAL THERAPIST before getting into bed. 2299 Nurse approached by patient who got out of bed and walked to nursing station. Bed alarm was not turned on by the SCHOOL PHYSICAL THERAPIST after leaving the room. Patient states you do not get to dictate policy, your attitude is not acceptable, you cannot be chewing me out. Nurse responded by again apologizing for any unacceptable behaviour and understands that they were speaking loudly. Nurse Dawson was present and escorted patient back to bed. Patient lying back in bed, bed alarm on. Continue to monitor. Coordinator notified.
--- NOTE | 2025-07-14 01:25 | PC.NURSE ---
collar packer this RN was notified by patient in , that he was very unhappy with care and that the bed alarm kept going off; RN informed patient that the bed alarm is set to notify staff if patient's body weight shifts to help alert staff if patient were to attempt to get out of bed without notifying staff. Patient was upset that the TV service is terrible and that all the staff are making too much noise, RN offered ear plugs and educated the patient that we are doing our best to keep the volume low but that we are still in a facility that provides care to patients 24hours a day and doing so does make some noise. Patient accepted the ear plugs and RN gave warm blankets and helped patient back into bed. this RN informed the RN in charge of the patient's care and the survey party chief.
[2025-07-14 02:00] VITALS: BP 147/64; PULSE 70; RESP 17; TEMP 36.7; O2SAT 97
[2025-07-14] MEDS: ATORVASTATIN 20 MG TABLET 10 MG PO (08:16)
[2025-07-14] MEDS: TAMSULOSIN 0.4 MG CAPSULE PO (08:17)
[2025-07-14] MEDS: FIDAXOMICIN 200 MG TABLET PO (08:17)
[2025-07-14] MEDS: PANTOPRAZOLE DR 20 MG TABLET PO (08:18)
--- NOTE | 2025-07-14 08:22 | P.DS_ITS ---
History of Present Illness History of Present Illness Chief complaint: weakness, dark stool Discharge Providers Provider Date of admission: 07/11/25 01:45 Discharge Date: 07/14/25 Primary care physician: José Miguel Davison MD Consults: 07/11/25 03:17 Consult to Dietitian, Adult Routine Comment: Reason For Exam: char Worrell infxn 07/12/25 07:18 Consult to Discharge Planning Routine Comment: Consult to Occupational Therapy Evaluate & Treat Comment: Physician Instructions: Evaluate and treat Consult to Physical Therapy Evaluate & Treat Comment: Physician Instructions: Evaluate and Treat 07/13/25 14:39 Consult to Home Health Routine Comment: Reason For Exam: RN/PT/OT Discharge provider: Alexey Pineda MD Summary Hospital Course Discharge Diagnosis: C diff colitis Anemia Weakness Dehydration with acute kidney injury Adenocarcinoma of the colon Hyperlipidemia Hypertension Depression Hospital Course: 84-year-old male who comes in with recent surgery for cecal adenocarcinoma which has been complicated with C diff colitis. Patient was admitted to the hospital because of concerning of increasing diarrhea and change in color of urination. This was compounded by weakness. Patient was admitted to the hospital. Patient had repeat testing done including elevated white blood cell count fatigue. Patient was treated on fidaxomicin for his C diff and had gradual resolution of his diarrhea and improved bowel movements. Patient has some chronic anemia and elevated white blood cell count which he is being followed with Hematology and recently had a bone marrow biopsy and will continue to monitor this. During the hospital stay his fatigue was improved with a combination of infection and fluids his kidney injury was improved also with the dehydration improvement. He will be planning to follow up with Dr. Davison he is eating well ambulating well. And will continue with the home antibiotics for C diff. Exam Vital Signs (past 8 hours): - 07/14/25 02:00 Temperature 98.0 F Pulse Rate 70 Respiratory Rate 17 Blood Pressure 147/64 H Pulse Oximetry 97 Oxygen Flow Rate 0 Oxygen Delivery Method Room Air Oxygen Flow Rate 0 Objective Labs 07/11/25 10:33 07/12/25 04:30 [facility] Medical History C. difficile colitis Proctocolitis Right bundle branch block Peripheral neuropathy Monoclonal gammopathy Atherosclerosis of aorta Paraganglioma Lower urinary tract symptoms (LUTS) Seasonal allergies Mumps Measles Chicken pox Benign prostatic hyperplasia Esophageal reflux (07/07/03) Hypogonadism in male (05/31/17) Lung nodule (06/12/16) Mixed hyperlipidemia (06/03/15) Hypertension (02/23/11) Surgical History Status post left hemicolectomy History of lung surgery (~2011) Social History marital status: number of children: 1 household members: spouse lives independently: Yes caregiver/support person: No housing: house pets and animals: No education level: college occupational status: other Previous occupational history: [employer] travel history: recurrent leisure activities: other Smoking Status: Former smoker Tobacco: How many years used: 30 Smokeless tobacco user: other quit status: quit date established second hand exposure: No alcohol intake: current substance use type: does not use Discharge Plan Discharge Plan Patient Disposition: Home Discharge orders & Medications Prescriptions: New fidaxomicin [Dificid] 200 mg Tablet 200 mg PO BID Qty: 24 0RF Continued multivitamin [Multiple Vitamins] Tablet 1 tab PO QDAY Qty: 0 alfuzosin 10 mg tablet extended release 24 hr 10 mg PO DAILY Qty: 90 3RF rosuvastatin 5 mg tablet 5 mg PO DAILY Qty: 90 3RF fluticasone propionate 50 mcg/actuation spray,suspension 1 spray NASAL DAILY alpha lipoic acid 1 cap PO DAILY (DME) Disabled Parking See Rx Instructions .ROUTE .MEDSUPPLY Qty: 1 0RF Patient Comments: does not have one but would like one. Rx Instructions: Patient qualifies for disabled parking as per the attached form. triamcinolone acetonide 0.1 % cream 1 applic topical TID Qty: 80 0RF duloxetine 30 mg capsule,delayed release(DR/EC) 30 mg PO BID Qty: 60 3RF Rx Instructions: take one daily for 1 week, then one twice daily acetaminophen [Tylenol] 325 mg tablet 325 mg PO ONCE PRN (Reason: pain) propranolol 20 mg tablet 10 mg PO DAILY Follow up/Referrals: José Miguel Davison MD [Primary Care Provider, Internal Medicine] Visit Report/Discharge Packet Stand Alone Forms: Patient Portal/API, Stroke Signs & Symptoms Discharge Data Primary Care Provider: José Miguel Davison [facility] Charge Codes Discharge inpatient/observation: [id number]
--- NOTE | 2025-07-14 09:26 | CM.DPC ---
HH order sent to [facility] .
--- NOTE | 2025-07-14 10:06 | PC.NURSE ---
Day shift: Paperwork signed and all questions answered. New MD script sent to Pt's pharmacy electronic. Left unit via WC at approx [phone]. His Spouse is driving him home. Encouraged to take all medications as directed.
[2025-07-14 15:12] LABS: C difficie Toxins A and B, EIA Negative (Negative)
== END 2025-07-14 10:08 | disposition home health service (06) | DRG 372 ==
LOC: ED 07-11 01:44 → AC 07-11 01:47
PROVIDERS: Admitting Provider Family Medicine; Emergency Provider Family Medicine; PCP Internal Medicine; Referring Provider Family Medicine; Visit Provider Internal Medicine
DX: A04.71 Enterocolitis due to Clostridium difficile, recurrent (principal); N17.9 Acute kidney failure, unspecified; E86.0 Dehydration; I10 Essential (primary) hypertension; F32.A Depression, unspecified; R53.1 Weakness; N40.0 Benign prostatic hyperplasia without lower urinary tract symptoms; Z85.038 Personal history of other malignant neoplasm of large intestine; Z87.891 Personal history of nicotine dependence; Z90.49 Acquired absence of other specified parts of digestive tract; D50.0 Iron deficiency anemia secondary to blood loss (chronic); E78.2 Mixed hyperlipidemia
CPT/HCPCS: 36415; 74174; 80053; 82550; 83605; 83735; 84145; 84439; 84443; 85007; 85025; 85610; 85651; 86140; 87324; 87507; 96360; 97116; 97162; 97165; 97530; 97535; 99284; J7030; Q9967

== ENCOUNTER 2025-08-04 15:01 | Emergency (ER) | payer MEDICARE, SELFPAY ==
[2025-07-11 03:13] VITALS: BMI 21.2
--- OUTSIDE RECORDS SUMMARY | 2025-08-04 15:04 | XMS_ITS | CCD ---
Author Name Interface, [id number] [address] [facility] [place] [address] Allergies and Adverse Reactions Medication/Group Name Reaction Severity Date No known allergies Reason for Visit Functional Status Date Name/Question Score/Answer 11/08/2011 Karnofsky performance status 90 Medications Date Name Route Dose Frequency Instructions Start Date End Date Status Fill Status Indication 04/08 Guaifen esin Oral Granule s PO 1.0 PACKET (S) daily 2011 active 04/08 Cetiriz ine Oral PO 1.0 TABLET (S) daily 2011 active 04/08 Tamsulo sin Oral PO 1.0 CAPSUL E(S), SUSTAI SHANNEN RELEAS E 24 HR daily as directed 2011 active 04/08 Flutica sone Nasal [place] 50 mcg/act uation Inhalati on route 50.0 MCG daily 2011 active 04/08 Vitamin A Oral PO 1.0 CAPSUL E(S) daily 2011 active 04/08 Coenzym e Q10 Oral PO 1.0 CAPSUL E(S) daily 2011 active 04/08 Cyanoco balamin Oral PO 1.0 TABLET (S) as directed 2011 active 04/08 Choleca lcifero l Oral PO 1.0 CAPSUL E(S) daily 2011 active 04/08 Dutaste ride Oral PO 1.0 CAPSUL E(S) daily 2011 active 04/08 Rosuvas tatin Calcium Oral PO 1.0 TABLET (S) daily 2011 active Problems Diagnosis Status Date of Diagnosis Resolution Date Work-up, hem/onc Active Social History Date Name Value 04/08/2021 Sex Male
--- NOTE | 2025-08-04 15:54 | DI.CT.S_ITS ---
PROCEDURE: CT CERVICAL SPINE WO CON INDICATIONS: fall TECHNIQUE: Noncontrast 3 mm thick sections acquired from the skull base to the T4 level. Sagittal and coronal reformats were then constructed. For radiation dose reduction, the following was used: automated exposure control, adjustment of mA and/or kV according to patient size. COMPARISON: None. FINDINGS: Image quality: Excellent. Bones: No fractures or dislocations. Visualized superior ribs are intact. Soft tissues: Prevertebral soft tissues are normal in thickness. No paravertebral hematomas. No apical pneumothoraces. IMPRESSION: No displaced fracture or traumatic subluxation. Dictated by: Vitaly Barraza M.D. on 08/04/2025 at 15:56 Approved by: Vitaly Barraza M.D. on 08/04/2025 at 15:57
--- NOTE | 2025-08-04 15:55 | DI.CT.S_ITS ---
PROCEDURE: CT HEAD/BRAIN WO CON INDICATIONS: fall TECHNIQUE: Noncontrast 4.5 mm thick angled axial sections acquired from the foramen magnum to the vertex, with coronal and sagittal reformats. For radiation dose reduction, the following was used: automated exposure control, adjustment of mA and/or kV according to patient size. COMPARISON: [facility], CT, CT HEAD/BRAIN WO CON, 06/20/2025, 22:28. FINDINGS: Image quality: Diagnostic. CSF spaces: Basal cisterns are patent. No extra-axial fluid collections. The ventricles are symmetric in size and shape. Brain: No intracranial bleeds or mass effect. There is cerebral volume loss, with resultant ventricular and sulcal prominence. There are periventricular and deep white matter chronic small vessel ischemic changes. There is intracranial internal carotid artery atherosclerosis. Skull and face: Calvarium and visualized facial bones appear intact, without suspicious lesions. There is mild posttraumatic edema within the soft tissues above the superior right orbital rim. Sinuses: Visualized sinuses and mastoids are clear. IMPRESSION: No acute intracranial pathology. Superior right orbital rim mild soft tissue contusion without underlying fracture. Dictated by: Beny Aguila M.D. on 08/04/2025 at 16:21 Approved by: Beny Aguila M.D. on 08/04/2025 at 16:22
--- NOTE | 2025-08-04 15:55 | DI.CT.S_ITS ---
PROCEDURE: CT FACIAL BONES WO CON INDICATIONS: fall TECHNIQUE: Noncontrast 2.5 mm thick axial images acquired from the mandible through the frontal sinuses, with coronal and sagittal reformatting. For radiation dose reduction, the following was used: automated exposure control, adjustment of mA and/or kV according to patient size. COMPARISON: None. FINDINGS: Image quality: Excellent. Bones and teeth: Orbital weaver are intact. Sinus weaver show no fracture or deformity on the left. There is a short vertically oriented anterior wall medial non displaced fracture on the right, centered on series 2 images 62-65, with slight posterior fluid within that sinus cavity.. Nasal septum is intact. There are bilateral nasal bone fractures greater on the right than the left, with mild comminution and mild deviation leftward. This is best seen centered on series 2, image 76. Visualized portions of the mandible demonstrate no fractures or subluxation. Zygomatic arches are intact. Pterygoid plates are intact. Visualized portions of the skull base and auditory canals are intact. Sinuses: Paranasal sinuses are aerated, without fluid levels, mucosal thickening, or mucoceles. Mastoid air cells are aerated. Soft tissues: Right greater than left nasal bridge region edema and also edema involving the right superior orbital rim and forehead area. No masses, or fluid collections. No enlarged lymph nodes. No soft tissue lacerations or debris. Vascular: Visualized vascular structures appear normal in the absence of contrast. Bony vascular foramina and canals are intact. IMPRESSION: Right greater than left facial trauma predominantly involving the superior orbital rim and nasal bridge region. No orbital fracture is associated but there are bilateral nasal bone fractures mildly displaced leftward and a nondisplaced vertically oriented short fracture involving the medial aspect of the right anterior maxillary sinus. Dictated by: Beny Aguila M.D. on 08/04/2025 at 16:22 Approved by: Beny Aguila M.D. on 08/04/2025 at 16:27
[2025-08-04 15:56] VITALS: BP 178/77; PULSE 73; RESP 17; TEMP 36.7; O2SAT 100; BMI 21.7
--- NOTE | 2025-08-04 19:29 | PC.NURSE ---
No answer when pt called to be placed in exam room.
== END 2025-08-04 20:31 | disposition left against medical advice (07) ==
PROVIDERS: Emergency Provider Emergency Medicine; PCP Internal Medicine
DX: A04.72 Enterocolitis due to Clostridium difficile, not specified as recurrent (principal); R19.7 Diarrhea, unspecified; D64.9 Anemia, unspecified; C18.9 Malignant neoplasm of colon, unspecified; I10 Essential (primary) hypertension
CPT/HCPCS: 70450; 70486; 72125; 99281; 99283